=== PATIENT | female | born 1965 | race Caucasian/White ===

== ENCOUNTER 2016-04-09 15:19 | Emergency (ER) | payer OTHER ==
[2006-10-27 23:25] VITALS: BP 121/83
[~2016-04-09] VITALS: Ht 170.2 cm; Wt 95.5 kg
[~2016-04-09 15:19] MED LIST: ALBUTEROL0.09 MG/A1 IH; AMITRIPTYLINE H25 M1 PO; AMOXICILLIN 50500 MG PO; AMOXICILLIN 8751 TAB PO; ATARAX 10MG10 MG/TAB PO; AUGMENTIN 875 M1 TAB PO; AUGMENTIN XR 101 TER PO; B-12 SHOT; B-1250 MCG PO; BACTRIM DS 8001 TAB PO; BENADRYL25 M2 PO; CALCIUM CARBONATE PO; CALTRATE 600600 MG PO; CEFTIN250 M1 PO; CEFTIN250 MG/5 M PO; CEFTIN500 MG PO; CEPHALEXIN500 M1 PO; CHEWABLE-V1 TAB.CHEW PO; CIPRO 100MG TA100 MG PO; CIPRO 500MG TA500 MG PO; CLARITIN; CLARITIN 1010 MG/TAB PO; CLEOCIN HC150 MG/CAP PO; CLEOCIN HCL300 MG PO; CLINDAMYCIN HC300 MG PO; CLINDAMYCIN150 MG PO; CYANOCOBAL1000 MCG/1; DECONAMINE SR 81 CER PO; DIFLUCAN 100MG100 MG PO; DIFLUCAN PO; DIFLUCAN100 MG PO; DIFLUCAN150 MG PO; DIFLUCAN200 MG PO; FLEXERIL10 MG PO; FLOMAX 0.40.4 MG/CAP PO; FLOMAX0.4 MG PO; FLONASE NASAL S16 GM NS; HYDROCODONE/APAP; HYDROCODONE/APAP PO; LEVAQUIN 5500 MG/TA1 PO; LEVAQUIN 5500 MG/TAB PO; LORTAB 10/500 51 TAB PO; LORTAB 5/500 501 TAB; LORTAB 5/500 501 TAB PO; LORTAB 7.5/5001 TAB PO; MACRODANTIN100 PO; MIRAPEX0.5 MG PO; MUCINEX 60600 MG/TA1 PO; MULTI VITAMINS1 TAB PO; MULTIVITAMIN1 TA1 PO; NASONEX SPRAY; NASONEX SPRAY IH; NEXIUM 20MG20 MG PO; NO HOME MEDICATIONS; NORCO 325 MG-101 TAB PO; NORCO 325 MG-51 TAB PO; PEN-VEE K500 MG PO; PENICILLIN V500 MG PO; PENICILLIN250 MG PO; PERCOCET 325 MG1 TA2 PO; PERCOCET 5/321 UDTAB PO; PERCOCET 500 MG1 TAB PO; PHENERGAN 25 TA25 MG; PHENERGAN 25 TA25 MG PO; PHENERGAN W/CO120 ML PO; PHENERGAN25 MG RC; PREDNISONE10 MG PO; PREDNISONE20 MG PO; PREVACID 30MG30 M1 PO; PRILOSEC 20MG20 MG PO; PROAIR HFA0.09 MG/AC IH; PROMETHAZINE12.5 M5 PO; PYRIDIUM 100MG100 MG PO; PYRIDIUM200 M1 PO; RANITIDINE HYD150 MG PO; REGLAN 10M10 MG/2 ML IV; REGLAN 10MG10 MG/TAB PO; SILVADENE 400G400 GM TP; SINGULAIR 110 MG/TAB PO; STADOL NASA25 MG/BOT; STADOL NASA25 MG/BOT NS; STADOL NASA25 MG/BOT PO; TUMS 5001250 MG PO; TUMS500 MG PO; ULTRAM 50MG TAB50 MG PO; ULTRAM50 MG PO; VENTOLIN0.09 MG IH; VICODIN HP 10 PO; VISINE; VITAMIN D1000 IU PO; VITAMIN D50000 I1 PO; ZITHROMAX 250M250 MG PO; ZITHROMAX Z PA250 MG PO; ZITHROMAX Z-PA250 M1 PO; ZITHROMAX500 M2 PO; ZOFRAN 4MG T4 MG/TAB PO; ZOFRAN ODT4 MG PO; ZOFRAN8 MG PO; [UNRECOGNIZED DRUG - OTHER]; vit d
[2016-04-09 15:24] VITALS: BP 152/103; PULSE 98; TEMP 98.1
[2016-04-09 17:18] LABS: BASO % 0.6 % (0.0-2.0); EOS # 0.2 (0.0-0.7); EOS % 2.8 % (0-4.0); GRAN # 3.4 (1.4-6.5); LYMPH # 2.6 (1.2-3.4); MEAN CELL VOLUME 88 fl (80.0-100.0); MEAN CORPUSCULAR HGB CONC 33 g/dl (33.0-37.0); MEAN PLATELET VOLUME 9.5 fl (7.4-10.4); MONO # 0.6 (0.1-0.6); MONO % 8.2 % (1.7-9.3); PLATELET COUNT 262 K/mm3 (130-400); RED BLOOD COUNT 3.81 M/mm3 (4.10-5.30); REDCELL DISTRIBUTION WIDTH-CV 13.3 % (11.5-14.5); WHITE BLOOD COUNT 6.9 K/mm3 (4.8-10.8)
[2016-04-09 17:36] LABS: ADJUSTED CALCIUM 9.5 mg/dL (8.4-10.2); ALANINE AMINOTRANSFERASE 34 U/L (9-52); ALBUMIN 3.4 gm/dL (3.5-5.0); ALKALINE PHOSPHATASE 100 U/L (50-136); ANION GAP 9 mmol/L (7-16); BILIRUBIN,TOTAL 0.5 mg/dL (0.0-1.0); BLOOD UREA NITROGEN 11 mg/dL (7-17); CARBON DIOXIDE 27 mmol/L (22-30); CHLORIDE 105 mmol/L (98-107); CREATININE, serum 0.84 mg/dL (0.52-1.25); GLUCOSE 94 mg/dL (74-106); POTASSIUM 4.3 mmol/L (3.4-5.0); SODIUM 141 mmol/L (137-145)
[2016-04-09 17:37] LABS: HEMATOCRIT 33.6 % (37.0-47.0); MEAN CORPUSCULAR HEMOGLOBIN 29 pg (27.0-31.0)
[2016-04-09 17:45] LABS: C-REACTIVE PROTEIN < 0.5 mg/dL (0.0-0.9)
== END 2016-04-09 18:38 | disposition home or self-care (01) ==
LOC: COL.ER 15:19
PROVIDERS: Emergency Medicine
DX: R47.81 Slurred speech (principal); G25.81 Restless legs syndrome; M79.7 Fibromyalgia; T43.215A Adverse effect of selective serotonin and norepinephrine reuptake inhibitors, initial encounter; T42.6X5A Adverse effect of other antiepileptic and sedative-hypnotic drugs, initial encounter

== ENCOUNTER 2016-05-07 12:42 | Emergency (ER) | payer OTHER ==
[2006-10-27 23:25] VITALS: BP 121/83
[~2016-05-07] VITALS: Ht 170.2 cm; Wt 100.0 kg
[2016-05-07 12:48] VITALS: BP 159/99; TEMP 98.9
[2016-05-07] MEDS ORDERED: NEURONTIN300 MG/CAP PO (12:52)
[2016-05-07 14:15] LABS: BASO # 0.1 (0.0-0.2); BASO % 0.6 % (0.0-2.0); EOS # 0.2 (0.0-0.7); EOS % 2.3 % (0-4.0); GRAN # 4.2 (1.4-6.5); GRAN % 52.1 % (42.2-75.2); HEMATOCRIT 40.6 % (37.0-47.0); HEMOGLOBIN 13.3 g/dl (12.5-16.0); LYMPH # 3.1 (1.2-3.4); LYMPH % 37.6 % (20.0-51.0); MEAN CELL VOLUME 88 fl (80.0-100.0); MEAN CORPUSCULAR HEMOGLOBIN 29 pg (27.0-31.0); MEAN CORPUSCULAR HGB CONC 33 g/dl (33.0-37.0); MEAN PLATELET VOLUME 9.7 fl (7.4-10.4); MONO # 0.6 (0.1-0.6); MONO % 6.7 % (1.7-9.3); PLATELET COUNT 295 K/mm3 (130-400); RED BLOOD COUNT 4.64 M/mm3 (4.10-5.30); REDCELL DISTRIBUTION WIDTH-CV 13.2 % (11.5-14.5); WHITE BLOOD COUNT 8.2 K/mm3 (4.8-10.8)
[2016-05-07 14:16] LABS: PH 6 (5-8); URINE APPEARANCE Clear; URINE BACTERIA None Seen /hpf; URINE BILIRUBIN Negative (NEGATIVE); URINE BLOOD Negative (NEGATIVE); URINE COLOR Yellow; URINE GLUCOSE Negative (NEGATIVE); URINE KETONE Negative (NEGATIVE); URINE RBC 0-2 /hpf; URINE UROBILINOGEN Negative (NEGATIVE); URINE WBC 0-2 /hpf
[2016-05-07 14:34] LABS: ADJUSTED CALCIUM 9.4 mg/dL (8.4-10.2); ALBUMIN 4.6 gm/dL (3.5-5.0); BILIRUBIN,TOTAL 0.8 mg/dL (0.0-1.0); CALCIUM 9.9 mg/dL (8.4-10.2); CREATININE, serum 0.78 mg/dL (0.52-1.25); INFLUENZA B NEGATIVE
[2016-05-07] MEDS ORDERED: PHENERGAN 25 TA25 MG PO (15:01)
[2016-05-07] MEDS ORDERED: TESSALON PERLE200 MG PO (15:01)
[2016-05-07 15:21] VITALS: PULSE 86
== END 2016-05-07 15:45 | disposition home or self-care (01) ==
LOC: COL.ER 12:42
PROVIDERS: Nurse Practitioner
DX: R11.10 Vomiting, unspecified (principal); R19.7 Diarrhea, unspecified; J06.9 Acute upper respiratory infection, unspecified; F17.210 Nicotine dependence, cigarettes, uncomplicated
CPT/HCPCS: J2270; J2405; J2550; J7030

== ENCOUNTER 2016-05-12 19:50 | Emergency (ER) | payer OTHER ==
[2006-10-27 23:25] VITALS: BP 121/83
[~2016-05-12] VITALS: Ht 170.2 cm; Wt 97.7 kg
[~2016-05-12 19:50] MED LIST changes: +NEURONTIN300 MG/CAP PO; +TESSALON PERLE200 MG PO
[2016-05-12 19:53] VITALS: TEMP 99.9
[2016-05-12] MEDS ORDERED: DESYREL 100MG100 MG PO (19:57)
[2016-05-12 20:43] VITALS: BP 136/80; PULSE 85
== END 2016-05-12 20:48 | disposition home or self-care (01) ==
LOC: COL.ER 19:50
DX: S90.32XA Contusion of left foot, initial encounter (principal); W22.8XXA Striking against or struck by other objects, initial encounter; Y92.009 Unspecified place in unspecified non-institutional (private) residence as the place of occurrence of the external cause

== ENCOUNTER 2016-05-15 17:10 | Emergency (ER) | payer OTHER ==
[2006-10-27 23:25] VITALS: BP 121/83
[~2016-05-15] VITALS: Ht 170.2 cm; Wt 100.0 kg
[~2016-05-15 17:10] MED LIST changes: +DESYREL 100MG100 MG PO
[2016-05-15 17:15] VITALS: TEMP 99.5
[2016-05-15 18:14] LABS: PH 5 (5-8); SQUAMOUS EPITHELIAL 0-2 /hpf; URINE APPEARANCE Hazy; URINE BACTERIA Rare /hpf; URINE BILIRUBIN Negative (NEGATIVE); URINE BLOOD 3+ (NEGATIVE); URINE COLOR Yellow; URINE GLUCOSE Negative (NEGATIVE); URINE KETONE Negative (NEGATIVE); URINE RBC >50 /hpf; URINE UROBILINOGEN Negative (NEGATIVE)
[2016-05-15] MEDS ORDERED: ZOFRAN 4MG T4 MG/TAB PO (18:43)
[2016-05-15 19:45] VITALS: BP 116/82; PULSE 98
== END 2016-05-15 19:55 | disposition home or self-care (01) ==
LOC: COL.ER 17:10
PROVIDERS: Nurse Practitioner
DX: M54.89 Other dorsalgia (principal); Z87.442 Personal history of urinary calculi; R11.2 Nausea with vomiting, unspecified; R31.9 Hematuria, unspecified
CPT/HCPCS: J1170; J2405; J2550; J7030

== ENCOUNTER 2016-05-17 20:03 | Emergency (ER) | payer OTHER ==
[2006-10-27 23:25] VITALS: BP 121/83
[~2016-05-17] VITALS: Ht 170.2 cm; Wt 97.7 kg
[2016-05-17 20:11] VITALS: TEMP 98.8
[2016-05-17 20:51] LABS: PH 6 (5-8); URINE APPEARANCE Clear; URINE BACTERIA Rare /hpf; URINE BILIRUBIN Negative (NEGATIVE); URINE BLOOD 3+ (NEGATIVE); URINE COLOR Amber; URINE GLUCOSE 1+ (NEGATIVE); URINE KETONE Trace (NEGATIVE); URINE RBC >50 /hpf; URINE UROBILINOGEN >=4.0 mg/dL (NEGATIVE)
[2016-05-17 20:52] LABS: URINE WBC 0-2 /hpf
[2016-05-17] MEDS ORDERED: PHENERGAN 25 TA25 MG PO (21:40)
[2016-05-17 21:54] VITALS: BP 151/101; PULSE 106
== END 2016-05-17 21:56 | disposition home or self-care (01) ==
LOC: COL.ER 20:03
PROVIDERS: Nurse Practitioner
DX: M54.5 Low back pain (principal); R10.84 Generalized abdominal pain; R31.9 Hematuria, unspecified; Z87.442 Personal history of urinary calculi

== ENCOUNTER 2016-05-29 20:09 | Emergency (ER) | payer OTHER ==
[2006-10-27 23:25] VITALS: BP 121/83
[~2016-05-29] VITALS: Ht 170.2 cm; Wt 100.0 kg
[2016-05-29 20:11] VITALS: BP 133/99; TEMP 98.7
[2016-05-29 20:55] LABS: PH 5 (5-8); URINE APPEARANCE Hazy; URINE BACTERIA None Seen /hpf; URINE BILIRUBIN Negative (NEGATIVE); URINE BLOOD 3+ (NEGATIVE); URINE COLOR Yellow; URINE GLUCOSE Negative (NEGATIVE); URINE KETONE Negative (NEGATIVE); URINE RBC >50 /hpf; URINE WBC 0-2 /hpf
[2016-05-29] MEDS ORDERED: PYRIDIUM200 M1 PO (22:19)
[2016-05-29 22:49] VITALS: PULSE 86
== END 2016-05-29 22:45 | disposition home or self-care (01) ==
LOC: COL.ER 20:09
PROVIDERS: Emergency Medicine
DX: R30.0 Dysuria (principal); R31.9 Hematuria, unspecified; Z87.442 Personal history of urinary calculi
CPT/HCPCS: J2550

== ENCOUNTER 2016-06-07 12:32 | Emergency (ER) | payer OTHER ==
[2006-10-27 23:25] VITALS: BP 121/83
[~2016-06-07] VITALS: Ht 170.2 cm; Wt 100.0 kg
[2016-06-07 12:43] VITALS: BP 151/92; PULSE 102; TEMP 98.5
[2016-06-07] MEDS ORDERED: PREDNISONE20 MG PO (15:00)
[2016-06-07] MEDS ORDERED: PROAIR HFA0.09 MG/AC IH (15:00)
== END 2016-06-07 15:10 | disposition home or self-care (01) ==
LOC: COL.ER 12:32
DX: J98.01 Acute bronchospasm (principal); R51 Headache
CPT/HCPCS: J2550; J7512

== ENCOUNTER 2016-07-05 18:48 | Emergency (ER) | payer SELFPAY ==
[2006-10-27 23:25] VITALS: BP 121/83
[~2016-07-05] VITALS: Ht 170.2 cm; Wt 100.0 kg
[2016-07-05 18:51] VITALS: BP 143/77
[2016-07-05] MEDS ORDERED: DIFLUCAN150 MG PO (19:58)
[2016-07-05] MEDS ORDERED: ZITHROMAX 250M250 MG PO (19:58)
[2016-07-05 20:16] VITALS: PULSE 68; TEMP 98.3
== END 2016-07-05 20:17 | disposition home or self-care (01) ==
LOC: COL.ER 18:48
DX: R51 Headache (principal); J32.9 Chronic sinusitis, unspecified

== ENCOUNTER 2016-07-10 17:02 | Emergency (ER) | payer SELFPAY ==
[2006-10-27 23:25] VITALS: BP 121/83
[~2016-07-10] VITALS: Ht 170.2 cm; Wt 100.0 kg
[2016-07-10 17:07] VITALS: BP 125/44; TEMP 99.6
[2016-07-10 17:27] LABS: PH 5 (5-8); SQUAMOUS EPITHELIAL 0-2 /hpf; URINE APPEARANCE Clear; URINE BACTERIA None Seen /hpf; URINE BILIRUBIN Negative (NEGATIVE); URINE BLOOD Negative (NEGATIVE); URINE COLOR Yellow; URINE GLUCOSE Negative (NEGATIVE); URINE KETONE Negative (NEGATIVE); URINE RBC 0-2 /hpf; URINE UROBILINOGEN Negative (NEGATIVE); URINE WBC 0-2 /hpf
[2016-07-10] MEDS ORDERED: PHENERGAN 25 TA25 MG PO (18:30)
[2016-07-10 18:37] VITALS: PULSE 97
== END 2016-07-10 18:38 | disposition home or self-care (01) ==
LOC: COL.ER 17:02
PROVIDERS: Emergency Medicine
DX: R10.32 Left lower quadrant pain (principal); Z87.442 Personal history of urinary calculi
CPT/HCPCS: J2550

== ENCOUNTER 2016-07-16 14:01 | Emergency (ER) | payer SELFPAY ==
[2006-10-27 23:25] VITALS: BP 121/83
[~2016-07-16] VITALS: Ht 170.2 cm; Wt 100.0 kg
[2016-07-16 14:04] VITALS: BP 141/86; PULSE 91; TEMP 99.5
[2016-07-16] MEDS ORDERED: NORCO 325 MG-51 TAB PO (15:14)
[2016-07-16] MEDS ORDERED: AMOXICILLIN 50500 MG PO (15:14)
== END 2016-07-16 15:19 | disposition home or self-care (01) ==
LOC: COL.ER 14:01
DX: K08.89 Other specified disorders of teeth and supporting structures (principal); K03.81 Cracked tooth

== ENCOUNTER 2016-07-18 22:28 | Emergency (ER) | payer SELFPAY ==
[2006-10-27 23:25] VITALS: BP 121/83
[~2016-07-18] VITALS: Ht 170.2 cm; Wt 102.3 kg
[2016-07-18 22:36] VITALS: TEMP 98.3
[2016-07-18 23:28] LABS: BASO % 0.6 % (0.0-2.0); EOS # 0.1 (0.0-0.7); GRAN # 2.7 (1.4-6.5); GRAN % 38.1 % (42.2-75.2); LYMPH # 3.5 (1.2-3.4); LYMPH % 48.6 % (20.0-51.0); MEAN CELL VOLUME 83 fl (80.0-100.0); MEAN CORPUSCULAR HGB CONC 33 g/dl (33.0-37.0); MEAN PLATELET VOLUME 9.8 fl (7.4-10.4); MONO # 0.7 (0.1-0.6); MONO % 10.3 % (1.7-9.3); PLATELET COUNT 287 K/mm3 (130-400); RED BLOOD COUNT 4.18 M/mm3 (4.10-5.30); REDCELL DISTRIBUTION WIDTH-CV 13.2 % (11.5-14.5); WHITE BLOOD COUNT 7.1 K/mm3 (4.8-10.8)
[2016-07-18 23:33] LABS: PH 5 (5-8); URINE APPEARANCE Clear; URINE BACTERIA None Seen /hpf; URINE BILIRUBIN Negative (NEGATIVE); URINE BLOOD Negative (NEGATIVE); URINE COLOR Yellow; URINE GLUCOSE Negative (NEGATIVE); URINE KETONE Negative (NEGATIVE); URINE RBC 0-2 /hpf; URINE UROBILINOGEN Negative (NEGATIVE); URINE WBC 0-2 /hpf
[2016-07-18 23:33] LABS: HEMATOCRIT 34.8 % (37.0-47.0); HEMOGLOBIN 11.5 g/dl (12.5-16.0); MEAN CORPUSCULAR HEMOGLOBIN 28 pg (27.0-31.0)
[2016-07-18 23:52] LABS: ADJUSTED CALCIUM 9.1 mg/dL (8.4-10.2); ALBUMIN 4.4 gm/dL (3.5-5.0); BILIRUBIN,TOTAL 0.7 mg/dL (0.0-1.0); CALCIUM 9.4 mg/dL (8.4-10.2); CREATININE, serum 0.89 mg/dL (0.52-1.25); POTASSIUM 3.5 mmol/L (3.4-5.0); TOTAL PROTEIN 7.1 gm/dL (6.4-8.2)
[2016-07-19 00:28] VITALS: BP 151/95; PULSE 97
== END 2016-07-19 00:29 | disposition home or self-care (01) ==
LOC: COL.ER 22:28
PROVIDERS: Emergency Medicine
DX: N20.0 Calculus of kidney (principal); R10.31 Right lower quadrant pain; Z87.442 Personal history of urinary calculi; G89.29 Other chronic pain
CPT/HCPCS: J1170; J2405; J7030

== ENCOUNTER 2016-07-29 19:59 | Emergency (ER) | payer SELFPAY ==
[2006-10-27 23:25] VITALS: BP 121/83
[~2016-07-29] VITALS: Ht 170.2 cm; Wt 100.5 kg
[2016-07-29 20:04] VITALS: TEMP 98.9
[2016-07-29] MEDS ORDERED: AMOXICILLIN 50500 MG PO (21:08)
[2016-07-29 21:51] VITALS: BP 148/84; PULSE 90
== END 2016-07-29 21:55 | disposition home or self-care (01) ==
LOC: COL.ER 19:59
DX: R51 Headache (principal); K08.89 Other specified disorders of teeth and supporting structures
CPT/HCPCS: J1200; J2550; J7030

== ENCOUNTER 2016-08-02 15:14 | Emergency (ER) | payer SELFPAY ==
[2006-10-27 23:25] VITALS: BP 121/83
[~2016-08-02] VITALS: Ht 170.2 cm; Wt 100.0 kg
[2016-08-02 15:18] VITALS: BP 168/83; TEMP 99
[2016-08-02 16:15] LABS: PH 5 (5-8); URINE APPEARANCE Hazy; URINE BACTERIA Rare /hpf; URINE BILIRUBIN Negative (NEGATIVE); URINE BLOOD 3+ (NEGATIVE); URINE COLOR Yellow; URINE GLUCOSE Negative (NEGATIVE); URINE KETONE Negative (NEGATIVE); URINE RBC >50 /hpf; URINE UROBILINOGEN Negative (NEGATIVE)
[2016-08-02] MEDS ORDERED: PYRIDIUM 100MG100 MG PO (17:09)
[2016-08-02] MEDS ORDERED: PHENERGAN 25 TA25 MG PO (17:09)
[2016-08-02 17:15] VITALS: PULSE 95
== END 2016-08-02 17:15 | disposition home or self-care (01) ==
LOC: COL.ER 15:14
PROVIDERS: Emergency Medicine
DX: R10.31 Right lower quadrant pain (principal); G89.29 Other chronic pain; R31.9 Hematuria, unspecified; R11.2 Nausea with vomiting, unspecified; R19.7 Diarrhea, unspecified; Z87.442 Personal history of urinary calculi
CPT/HCPCS: J2550

== ENCOUNTER 2016-08-22 19:14 | Emergency (ER) | payer SELFPAY ==
[2006-10-27 23:25] VITALS: BP 121/83
[~2016-08-22] VITALS: Ht 170.2 cm; Wt 100.9 kg
[2016-08-22 19:18] VITALS: BP 136/104; TEMP 99.5
[2016-08-22 19:53] LABS: PH 5 (5-8); URINE APPEARANCE Clear; URINE BILIRUBIN Negative (NEGATIVE); URINE BLOOD 3+ (NEGATIVE); URINE COLOR Yellow; URINE GLUCOSE Negative (NEGATIVE); URINE KETONE Negative (NEGATIVE); URINE UROBILINOGEN Negative (NEGATIVE)
[2016-08-22 20:01] LABS: SQUAMOUS EPITHELIAL 0-2 /hpf; URINE BACTERIA Moderate /hpf
[2016-08-22] MEDS ORDERED: PREDNISONE20 MG PO (20:28)
[2016-08-22 21:04] VITALS: PULSE 94
== END 2016-08-22 21:05 | disposition home or self-care (01) ==
LOC: COL.ER 19:14
PROVIDERS: Physician Assistant
DX: N20.1 Calculus of ureter (principal); L23.7 Allergic contact dermatitis due to plants, except food
CPT/HCPCS: J2550; J7512

== ENCOUNTER 2016-08-30 18:56 | Emergency (ER) | payer SELFPAY ==
[2006-10-27 23:25] VITALS: BP 121/83
[~2016-08-30] VITALS: Ht 170.2 cm; Wt 100.0 kg
[2016-08-30 20:19] LABS: BASO % 0.4 % (0.0-2.0); EOS # 0.1 (0.0-0.7); EOS % 1.1 % (0-4.0); GRAN # 4.7 (1.4-6.5); GRAN % 45.3 % (42.2-75.2); HEMATOCRIT 39.8 % (37.0-47.0); HEMOGLOBIN 12.8 g/dl (12.5-16.0); LYMPH # 4.7 (1.2-3.4); LYMPH % 44.7 % (20.0-51.0); MEAN CELL VOLUME 83 fl (80.0-100.0); MEAN CORPUSCULAR HEMOGLOBIN 27 pg (27.0-31.0); MEAN CORPUSCULAR HGB CONC 32 g/dl (33.0-37.0); MEAN PLATELET VOLUME 9.3 fl (7.4-10.4); MONO # 0.8 (0.1-0.6); PH 5 (5-8); PLATELET COUNT 346 K/mm3 (130-400); RED BLOOD COUNT 4.77 M/mm3 (4.10-5.30); REDCELL DISTRIBUTION WIDTH-CV 13.9 % (11.5-14.5); URINE APPEARANCE Hazy; URINE BACTERIA None Seen /hpf; URINE BILIRUBIN Negative (NEGATIVE); URINE BLOOD 3+ (NEGATIVE); URINE COLOR Yellow; URINE GLUCOSE Negative (NEGATIVE); URINE KETONE Negative (NEGATIVE); URINE RBC >50 /hpf; URINE UROBILINOGEN Negative (NEGATIVE); WHITE BLOOD COUNT 10.4 K/mm3 (4.8-10.8)
[2016-08-30 20:20] LABS: ADJUSTED CALCIUM 8.9 mg/dL (8.4-10.2); ALBUMIN 4.6 gm/dL (3.5-5.0); BILIRUBIN,TOTAL 0.6 mg/dL (0.0-1.0); CALCIUM 9.4 mg/dL (8.4-10.2); CREATININE, serum 0.83 mg/dL (0.52-1.25); POTASSIUM 3.7 mmol/L (3.4-5.0); TOTAL PROTEIN 7.6 gm/dL (6.4-8.2)
[2016-08-30 20:22] VITALS: BP 123/72; TEMP 98.7
[2016-08-30] MEDS ORDERED: MACROBID 1100 MG/CAP PO (20:30)
[2016-08-30 21:18] VITALS: PULSE 85
== END 2016-08-30 21:18 | disposition home or self-care (01) ==
LOC: COL.ER 18:56
PROVIDERS: Emergency Medicine
DX: R10.2 Pelvic and perineal pain (principal); R31.9 Hematuria, unspecified; R30.0 Dysuria; J45.909 Unspecified asthma, uncomplicated; Z90.49 Acquired absence of other specified parts of digestive tract
CPT/HCPCS: J2550; J7030

== ENCOUNTER 2016-09-01 07:47 | Emergency (ER) | payer SELFPAY ==
[2006-10-27 23:25] VITALS: BP 121/83
[~2016-09-01] VITALS: Ht 170.2 cm; Wt 100.0 kg
[~2016-09-01 07:47] MED LIST changes: +MACROBID 1100 MG/CAP PO
[2016-09-01 07:54] VITALS: BP 129/86; PULSE 108; TEMP 98.9
[2016-09-01 08:24] LABS: PH 5 (5-8); URINE APPEARANCE Clear; URINE COLOR Straw
[2016-09-01 08:25] LABS: URINE BILIRUBIN Negative (NEGATIVE); URINE BLOOD 3+ (NEGATIVE); URINE GLUCOSE Negative (NEGATIVE); URINE KETONE Negative (NEGATIVE); URINE UROBILINOGEN Negative (NEGATIVE)
[2016-09-01 08:30] LABS: SQUAMOUS EPITHELIAL 0-2 /hpf; URINE BACTERIA Rare /hpf; URINE RBC >50 /hpf
[2016-09-01] MEDS ORDERED: ZOFRAN ODT4 MG PO (09:27)
[2016-09-01] MEDS ORDERED: NORCO 325 MG-51 TAB PO (09:27)
[2016-09-01] MEDS ORDERED: PYRIDIUM 100MG100 MG PO (09:27)
== END 2016-09-01 10:10 | disposition home or self-care (01) ==
LOC: COL.ER 07:47
PROVIDERS: Nurse Practitioner
DX: R10.9 Unspecified abdominal pain (principal); J45.909 Unspecified asthma, uncomplicated; G43.909 Migraine, unspecified, not intractable, without status migrainosus; M79.7 Fibromyalgia; J32.9 Chronic sinusitis, unspecified; Z87.442 Personal history of urinary calculi; Z90.49 Acquired absence of other specified parts of digestive tract; Z90.89 Acquired absence of other organs; Z90.710 Acquired absence of both cervix and uterus; Z98.890 Other specified postprocedural states
CPT/HCPCS: J2550

== ENCOUNTER → 2016-09-10 | Outpatient (CLI) | payer SELFPAY ==
[~2016-09-10] MED LIST changes: +DESYREL 50MG50 MG PO; +MIRAPEX0.25 MG PO
== END ==
LOC: COL.RAD 08:05
DX: N20.0 Calculus of kidney (principal)

== ENCOUNTER 2016-09-27 16:12 | Emergency (ER) | payer SELFPAY ==
[2006-10-27 23:25] VITALS: BP 121/83
[~2016-09-27] VITALS: Ht 170.2 cm; Wt 99.1 kg
[~2016-09-27 16:12] MED LIST changes: -DESYREL 50MG50 MG PO; -MIRAPEX0.25 MG PO
[2016-09-27 16:14] VITALS: BP 144/83
[2016-09-27 16:43] LABS: PH 5 (5-8); URINE APPEARANCE Hazy; URINE BACTERIA Rare /hpf; URINE BILIRUBIN Negative (NEGATIVE); URINE BLOOD 3+ (NEGATIVE); URINE COLOR Red; URINE GLUCOSE Negative (NEGATIVE); URINE KETONE Negative (NEGATIVE); URINE RBC >50 /hpf; URINE UROBILINOGEN >=4.0 mg/dL (NEGATIVE); URINE WBC None Seen /hpf
[2016-09-27 16:48] LABS: ADJUSTED CALCIUM 9.2 mg/dL (8.4-10.2); ALBUMIN 4.6 gm/dL (3.5-5.0); BILIRUBIN,TOTAL 0.9 mg/dL (0.0-1.0); CALCIUM 9.7 mg/dL (8.4-10.2); CREATININE, serum 0.94 mg/dL (0.52-1.25); POTASSIUM 3.7 mmol/L (3.4-5.0); TOTAL PROTEIN 7.7 gm/dL (6.4-8.2)
[2016-09-27] MEDS ORDERED: CIPRO 500MG TA500 MG PO (17:17)
[2016-09-27 17:22] LABS: BASO # 0.1 (0.0-0.2); BASO % 0.5 % (0.0-2.0); EOS # 0.1 (0.0-0.7); EOS % 1.2 % (0-4.0); GRAN # 4.3 (1.4-6.5); GRAN % 42.6 % (42.2-75.2); HEMATOCRIT 38.8 % (37.0-47.0); HEMOGLOBIN 12.4 g/dl (12.5-16.0); LYMPH # 4.9 (1.2-3.4); LYMPH % 48.1 % (20.0-51.0); MEAN CELL VOLUME 84 fl (80.0-100.0); MEAN CORPUSCULAR HEMOGLOBIN 27 pg (27.0-31.0); MEAN CORPUSCULAR HGB CONC 32 g/dl (33.0-37.0); MEAN PLATELET VOLUME 10.3 fl (7.4-10.4); MONO # 0.7 (0.1-0.6); MONO % 7.2 % (1.7-9.3); PLATELET COUNT 332 K/mm3 (130-400); RED BLOOD COUNT 4.64 M/mm3 (4.10-5.30); REDCELL DISTRIBUTION WIDTH-CV 14.9 % (11.5-14.5); WHITE BLOOD COUNT 10.2 K/mm3 (4.8-10.8)
[2016-09-27 17:52] VITALS: TEMP 99
[2016-09-27] MEDS ORDERED: PERCOCET 325 MG1 TA2 PO (18:42)
[2016-09-27] MEDS ORDERED: ULTRAM 50MG TAB50 MG PO (18:42)
[2016-09-27 18:44] VITALS: PULSE 85
== END 2016-09-27 18:46 | disposition home or self-care (01) ==
LOC: COL.ER 16:12
PROVIDERS: Emergency Medicine
DX: N20.1 Calculus of ureter (principal); Z87.442 Personal history of urinary calculi; R33.9 Retention of urine, unspecified; R11.2 Nausea with vomiting, unspecified; R63.0 Anorexia
CPT/HCPCS: J0696; J1170; J2405; J7030

== ENCOUNTER 2016-10-22 22:25 | Emergency (ER) | payer OTHER ==
[2006-10-27 23:25] VITALS: BP 121/83
[~2016-10-22] VITALS: Ht 170.2 cm; Wt 100.0 kg
[2016-10-22 22:29] VITALS: BP 173/100; TEMP 99
[2016-10-22 22:52] LABS: PH 5 (5-8); SQUAMOUS EPITHELIAL 0-2 /hpf; URINE APPEARANCE Hazy; URINE BACTERIA None Seen /hpf; URINE BILIRUBIN Negative (NEGATIVE); URINE BLOOD 3+ (NEGATIVE); URINE COLOR Amber; URINE GLUCOSE Negative (NEGATIVE); URINE KETONE Negative (NEGATIVE); URINE RBC >50 /hpf
[2016-10-22 23:33] LABS: BASO % 0.4 % (0.0-2.0); EOS # 0.1 (0.0-0.7); EOS % 1.6 % (0-4.0); GRAN # 2.9 (1.4-6.5); LYMPH # 3.4 (1.2-3.4); LYMPH % 48.6 % (20.0-51.0); MEAN CELL VOLUME 83 fl (80.0-100.0); MEAN CORPUSCULAR HGB CONC 32 g/dl (33.0-37.0); MEAN PLATELET VOLUME 10.1 fl (7.4-10.4); MONO # 0.6 (0.1-0.6); MONO % 8.1 % (1.7-9.3); PLATELET COUNT 253 K/mm3 (130-400); RED BLOOD COUNT 4.31 M/mm3 (4.10-5.30); REDCELL DISTRIBUTION WIDTH-CV 14.2 % (11.5-14.5); WHITE BLOOD COUNT 6.9 K/mm3 (4.8-10.8)
[2016-10-22 23:34] LABS: HEMATOCRIT 35.8 % (37.0-47.0); HEMOGLOBIN 11.4 g/dl (12.5-16.0); MEAN CORPUSCULAR HEMOGLOBIN 26 pg (27.0-31.0)
[2016-10-22 23:42] LABS: ALBUMIN 4.2 gm/dL (3.5-5.0); BILIRUBIN,TOTAL 0.4 mg/dL (0.0-1.0); CALCIUM 9.2 mg/dL (8.4-10.2); CREATININE, serum 0.91 mg/dL (0.52-1.25); TOTAL PROTEIN 6.8 gm/dL (6.4-8.2)
[2016-10-22 23:52] VITALS: PULSE 82
== END 2016-10-22 23:54 | disposition home or self-care (01) ==
LOC: COL.ER 22:25
PROVIDERS: Nurse Practitioner
DX: G89.29 Other chronic pain (principal); R10.9 Unspecified abdominal pain; Z87.442 Personal history of urinary calculi; Z90.710 Acquired absence of both cervix and uterus; Z98.84 Bariatric surgery status

== ENCOUNTER 2016-11-04 15:58 | Emergency (ER) | payer OTHER ==
[2006-10-27 23:25] VITALS: BP 121/83
[~2016-11-04] VITALS: Ht 170.2 cm; Wt 100.0 kg
[2016-11-04 16:00] VITALS: TEMP 99.5
[2016-11-04] MEDS ORDERED: PEN-VEE K500 MG PO (16:41)
[2016-11-04 16:47] VITALS: BP 155/70; PULSE 96
== END 2016-11-04 16:48 | disposition home or self-care (01) ==
LOC: COL.ER 15:58
DX: G43.909 Migraine, unspecified, not intractable, without status migrainosus (principal); K08.89 Other specified disorders of teeth and supporting structures; M79.7 Fibromyalgia
CPT/HCPCS: J1200; J2550

== ENCOUNTER 2016-11-09 17:53 | Emergency (ER) | payer OTHER ==
[2006-10-27 23:25] VITALS: BP 121/83
[~2016-11-09] VITALS: Ht 170.2 cm; Wt 100.0 kg
[2016-11-09 17:57] VITALS: TEMP 99.3
[2016-11-09 18:29] LABS: PH 5 (5-8); URINE APPEARANCE Hazy; URINE BACTERIA None Seen /hpf; URINE BILIRUBIN Negative (NEGATIVE); URINE BLOOD 3+ (NEGATIVE); URINE COLOR Yellow; URINE GLUCOSE Negative (NEGATIVE); URINE KETONE Negative (NEGATIVE); URINE RBC >50 /hpf; URINE UROBILINOGEN Negative (NEGATIVE); URINE WBC None Seen /hpf
[2016-11-09 19:25] LABS: BASO % 0.3 % (0.0-2.0); EOS # 0.1 (0.0-0.7); EOS % 0.9 % (0-4.0); GRAN # 4.9 (1.4-6.5); GRAN % 54.5 % (42.2-75.2); LYMPH # 3.3 (1.2-3.4); LYMPH % 36.9 % (20.0-51.0); MEAN CELL VOLUME 84 fl (80.0-100.0); MEAN CORPUSCULAR HGB CONC 32 g/dl (33.0-37.0); MONO # 0.6 (0.1-0.6); PLATELET COUNT 276 K/mm3 (130-400); RED BLOOD COUNT 4.37 M/mm3 (4.10-5.30); REDCELL DISTRIBUTION WIDTH-CV 14.7 % (11.5-14.5)
[2016-11-09 19:27] LABS: HEMATOCRIT 36.6 % (37.0-47.0); HEMOGLOBIN 11.7 g/dl (12.5-16.0); MEAN CORPUSCULAR HEMOGLOBIN 27 pg (27.0-31.0)
[2016-11-09 19:32] LABS: ADJUSTED CALCIUM 9.3 mg/dL (8.4-10.2); ALBUMIN 4.2 gm/dL (3.5-5.0); BILIRUBIN,TOTAL 0.7 mg/dL (0.0-1.0); CALCIUM 9.5 mg/dL (8.4-10.2); CREATININE, serum 0.74 mg/dL (0.52-1.25); POTASSIUM 3.7 mmol/L (3.4-5.0); TOTAL PROTEIN 7.1 gm/dL (6.4-8.2)
[2016-11-09 21:00] VITALS: BP 109/71; PULSE 73
== END 2016-11-09 21:03 | disposition home or self-care (01) ==
LOC: COL.ER 17:53
PROVIDERS: Emergency Medicine; Nurse Practitioner
DX: R10.31 Right lower quadrant pain (principal); R50.9 Fever, unspecified; R10.2 Pelvic and perineal pain; R19.7 Diarrhea, unspecified; R63.0 Anorexia; R31.9 Hematuria, unspecified; Z87.442 Personal history of urinary calculi; R29.898 Other symptoms and signs involving the musculoskeletal system; G43.909 Migraine, unspecified, not intractable, without status migrainosus; J45.909 Unspecified asthma, uncomplicated; G89.29 Other chronic pain
CPT/HCPCS: J1170; J2405; J7030

== ENCOUNTER 2016-11-13 18:57 | Emergency (ER) | payer OTHER ==
[2006-10-27 23:25] VITALS: BP 121/83
[~2016-11-13] VITALS: Ht 170.2 cm; Wt 99.1 kg
[2016-11-13 19:04] VITALS: TEMP 97.3
[2016-11-13 20:12] LABS: PH 5 (5-8); URINE APPEARANCE Hazy; URINE BACTERIA Rare /hpf; URINE BILIRUBIN Negative (NEGATIVE); URINE BLOOD 3+ (NEGATIVE); URINE COLOR Yellow; URINE GLUCOSE Negative (NEGATIVE); URINE KETONE Negative (NEGATIVE); URINE RBC >50 /hpf; URINE UROBILINOGEN Negative (NEGATIVE); URINE WBC None Seen /hpf
[2016-11-13 20:47] VITALS: BP 134/77; PULSE 91
[2016-11-13] MEDS ORDERED: DESYREL 50MG50 MG PO (20:49)
[2016-11-13] MEDS ORDERED: MIRAPEX0.25 MG PO (20:49)
== END 2016-11-13 20:52 | disposition home or self-care (01) ==
LOC: COL.ER 18:57
PROVIDERS: Physician Assistant
DX: R29.898 Other symptoms and signs involving the musculoskeletal system (principal); Z87.442 Personal history of urinary calculi; R63.0 Anorexia; R11.0 Nausea; M79.7 Fibromyalgia; R31.9 Hematuria, unspecified; J45.909 Unspecified asthma, uncomplicated
CPT/HCPCS: J1170; J2550

== ENCOUNTER 2016-11-16 15:15 | Emergency (ER) | payer OTHER ==
[2006-10-27 23:25] VITALS: BP 121/83
[~2016-11-16] VITALS: Ht 170.2 cm; Wt 100.0 kg
[~2016-11-16 15:15] MED LIST changes: +DESYREL 50MG50 MG PO; +MIRAPEX0.25 MG PO
[2016-11-16 15:33] VITALS: BP 143/88; PULSE 86; TEMP 98.7
[2016-11-16] MEDS ORDERED: FLOMAX 0.40.4 MG/CAP PO (15:37)
[2016-11-16 17:55] LABS: PH 5 (5-8); URINE APPEARANCE Hazy; URINE BACTERIA Rare /hpf; URINE BILIRUBIN Negative (NEGATIVE); URINE BLOOD 3+ (NEGATIVE); URINE COLOR Yellow; URINE GLUCOSE Negative (NEGATIVE); URINE KETONE Negative (NEGATIVE); URINE RBC >50 /hpf; URINE UROBILINOGEN Negative (NEGATIVE); URINE WBC None Seen /hpf
== END 2016-11-16 19:25 | disposition home or self-care (01) ==
LOC: COL.ER 15:15
PROVIDERS: Physician Assistant
DX: R10.31 Right lower quadrant pain (principal); R31.9 Hematuria, unspecified; R11.2 Nausea with vomiting, unspecified; R30.0 Dysuria; N20.0 Calculus of kidney; Z87.442 Personal history of urinary calculi; M54.89 Other dorsalgia
CPT/HCPCS: J2550; J3010

== ENCOUNTER 2016-11-30 08:45 | Emergency (ER) | payer OTHER ==
[2006-10-27 23:25] VITALS: BP 121/83
[~2016-11-30] VITALS: Ht 170.2 cm; Wt 96.4 kg
[2016-11-30 08:51] VITALS: TEMP 97.9
[2016-11-30] MEDS ORDERED: NORCO 325 MG-101 TAB PO (08:56)
[2016-11-30 09:28] LABS: BASO % 0.5 % (0.0-2.0); EOS # 0.1 (0.0-0.7); GRAN # 2.4 (1.4-6.5); LYMPH # 3.1 (1.2-3.4); LYMPH % 50.2 % (20.0-51.0); MEAN CELL VOLUME 82 fl (80.0-100.0); MEAN CORPUSCULAR HGB CONC 32 g/dl (33.0-37.0); MEAN PLATELET VOLUME 9.9 fl (7.4-10.4); MONO # 0.5 (0.1-0.6); MONO % 8.1 % (1.7-9.3); PLATELET COUNT 338 K/mm3 (130-400); RED BLOOD COUNT 4.49 M/mm3 (4.10-5.30); REDCELL DISTRIBUTION WIDTH-CV 14.6 % (11.5-14.5); WHITE BLOOD COUNT 6.1 K/mm3 (4.8-10.8)
[2016-11-30 09:30] LABS: HEMATOCRIT 36.9 % (37.0-47.0); HEMOGLOBIN 11.8 g/dl (12.5-16.0); MEAN CORPUSCULAR HEMOGLOBIN 26 pg (27.0-31.0)
[2016-11-30 09:38] LABS: ADJUSTED CALCIUM 9.1 mg/dL (8.4-10.2); ALANINE AMINOTRANSFERASE 26 U/L (9-52); ALBUMIN 4.4 gm/dL (3.5-5.0); ALKALINE PHOSPHATASE 95 U/L (50-136); ANION GAP 11 mmol/L (7-16); BILIRUBIN,TOTAL 0.9 mg/dL (0.0-1.0); BLOOD UREA NITROGEN 15 mg/dL (7-17); CALCIUM 9.4 mg/dL (8.4-10.2); CARBON DIOXIDE 23 mmol/L (22-30); CHLORIDE 107 mmol/L (98-107); GLUCOSE 89 mg/dL (74-106); LIPASE 71 U/L (23-300); POTASSIUM 3.7 mmol/L (3.4-5.0); SODIUM 141 mmol/L (137-145); TOTAL PROTEIN 7.4 gm/dL (6.4-8.2)
[2016-11-30 09:40] LABS: C-REACTIVE PROTEIN < 0.5 mg/dL (0.0-0.9)
[2016-11-30 09:43] LABS: PH 5 (5-8); SQUAMOUS EPITHELIAL None Seen /hpf; URINE APPEARANCE Cloudy; URINE BACTERIA None Seen /hpf; URINE BILIRUBIN Negative (NEGATIVE); URINE BLOOD 3+ (NEGATIVE); URINE COLOR Amber; URINE GLUCOSE Negative (NEGATIVE); URINE KETONE Negative (NEGATIVE); URINE RBC >50 /hpf; URINE UROBILINOGEN Negative (NEGATIVE); URINE WBC None Seen /hpf
[2016-11-30] MEDS ORDERED: NORCO 325 MG-51 TAB PO (10:06)
[2016-11-30] MEDS ORDERED: ZOFRAN 4MG T4 MG/TAB PO (10:06)
[2016-11-30 10:49] VITALS: BP 147/103; PULSE 82
== END 2016-11-30 10:49 | disposition home or self-care (01) ==
LOC: COL.ER 08:45
PROVIDERS: Emergency Medicine
DX: N23 Unspecified renal colic (principal); G89.29 Other chronic pain; F17.200 Nicotine dependence, unspecified, uncomplicated; Z90.49 Acquired absence of other specified parts of digestive tract; Z90.89 Acquired absence of other organs; Z90.710 Acquired absence of both cervix and uterus; Z98.84 Bariatric surgery status; Z87.442 Personal history of urinary calculi
CPT/HCPCS: J1170; J2405; J7030

== ENCOUNTER 2016-11-30 16:27 | Inpatient (IN) | payer OTHER ==
[~2016-11-30] VITALS: Ht 170.2 cm; Wt 99.1 kg
[2016-11-30 20:00] VITALS: BP 146/81; PULSE 80
[2016-11-30 21:03] VITALS: BP 144/88; PULSE 88; TEMP 99.4
[2016-12-01 00:20] VITALS: BP 129/77; PULSE 75
[2016-12-01 00:37] VITALS: BP 128/77; PULSE 75
[2016-12-01 04:00] VITALS: BP 123/75; PULSE 75; TEMP 97.8
[2016-12-01 09:15] VITALS: BP 108/63; PULSE 71; TEMP 98.1
[2016-12-01 13:53] VITALS: BP 150/92; PULSE 74; TEMP 98.2
[2016-12-01 17:53] VITALS: BP 146/93; PULSE 66; TEMP 98.6
== END 2016-12-01 19:55 | disposition home or self-care (01) | DRG 694 ==
LOC: COL.ER 16:27 → OB 20:04 → SURG 20:04
DX: N20.2 Calculus of kidney with calculus of ureter (principal); Z87.442 Personal history of urinary calculi; Z98.84 Bariatric surgery status
CPT/HCPCS: J2270; J2405; J3480; J7030

== ENCOUNTER 2017-01-03 21:51 | Emergency (ER) | payer OTHER ==
[2006-10-27 23:25] VITALS: BP 121/83
[~2017-01-03] VITALS: Ht 170.2 cm; Wt 98.6 kg
[2017-01-03 21:55] VITALS: TEMP 98.7
[2017-01-03 22:51] LABS: PH 5 (5-8); URINE APPEARANCE Clear; URINE BACTERIA Rare /hpf; URINE BILIRUBIN Negative (NEGATIVE); URINE BLOOD 2+ (NEGATIVE); URINE COLOR Yellow; URINE GLUCOSE Negative (NEGATIVE); URINE KETONE Negative (NEGATIVE); URINE RBC 20-50 /hpf; URINE UROBILINOGEN Negative (NEGATIVE)
[2017-01-03 23:02] VITALS: BP 133/71; PULSE 68
[2017-01-03 23:16] LABS: BASO % 0.6 % (0.0-2.0); EOS # 0.1 (0.0-0.7); EOS % 1.7 % (0-4.0); GRAN # 3.1 (1.4-6.5); GRAN % 44.1 % (42.2-75.2); LYMPH # 3.3 (1.2-3.4); LYMPH % 46.2 % (20.0-51.0); MEAN CELL VOLUME 83 fl (80.0-100.0); MEAN CORPUSCULAR HGB CONC 32 g/dl (33.0-37.0); MONO # 0.5 (0.1-0.6); MONO % 7.1 % (1.7-9.3); PLATELET COUNT 269 K/mm3 (130-400); RED BLOOD COUNT 4.01 M/mm3 (4.10-5.30); REDCELL DISTRIBUTION WIDTH-CV 14.6 % (11.5-14.5); WHITE BLOOD COUNT 7.1 K/mm3 (4.8-10.8)
[2017-01-03 23:18] LABS: HEMATOCRIT 33.3 % (37.0-47.0); HEMOGLOBIN 10.7 g/dl (12.5-16.0); MEAN CORPUSCULAR HEMOGLOBIN 27 pg (27.0-31.0)
[2017-01-03] MEDS ORDERED: FLOMAX 0.40.4 MG/CAP PO (23:24)
[2017-01-03] MEDS ORDERED: NORCO 325 MG-51 TAB PO (23:24)
[2017-01-03] MEDS ORDERED: ZOFRAN ODT4 MG PO (23:24)
[2017-01-03 23:31] LABS: ADJUSTED CALCIUM 9.2 mg/dL (8.4-10.2); ALBUMIN 3.6 gm/dL (3.5-5.0); BILIRUBIN,TOTAL 0.3 mg/dL (0.0-1.0); CALCIUM 8.9 mg/dL (8.4-10.2); CREATININE, serum 0.67 mg/dL (0.52-1.25); POTASSIUM 3.5 mmol/L (3.4-5.0); TOTAL PROTEIN 6.3 gm/dL (6.4-8.2)
== END 2017-01-03 23:30 | disposition home or self-care (01) ==
LOC: COL.ER 21:51
PROVIDERS: Emergency Medicine
DX: N23 Unspecified renal colic (principal); Z87.442 Personal history of urinary calculi; Z90.49 Acquired absence of other specified parts of digestive tract; Z90.710 Acquired absence of both cervix and uterus
CPT/HCPCS: J2765; J3010; J7030

== ENCOUNTER 2017-03-24 20:12 | Emergency (ER) | payer SELFPAY ==
[2006-10-27 23:25] VITALS: BP 121/83
[~2017-03-24] VITALS: Ht 170.2 cm; Wt 98.2 kg
[2017-03-24 20:15] VITALS: BP 169/89; TEMP 102.9
[2017-03-24] MEDS ORDERED: BENADRYL25 M2 PO (20:19)
[2017-03-24 20:47] LABS: INFLUENZA A NEGATIVE; INFLUENZA B NEGATIVE
[2017-03-24] MEDS ORDERED: TYLENOL/CODEINE1 ML PO (21:00)
[2017-03-24] MEDS ORDERED: DOXYCYCLINE 10100 MG PO ×2 (21:00)
[2017-03-24] MEDS ORDERED: ZOFRAN ODT4 MG PO ×2 (21:00)
[2017-03-24] MEDS ORDERED: DIFLUCAN150 MG PO (21:00)
[2017-03-24 21:23] VITALS: PULSE 97
[2017-03-25] MEDS ORDERED: PHENERGAN 25 TA25 MG PO (11:03)
[2017-03-25] MEDS ORDERED: ERY-TAB500 MG PO (11:06)
[2017-03-25] MEDS ORDERED: ZITHROMAX Z PA250 MG PO (11:06)
== END 2017-03-24 21:24 | disposition home or self-care (01) ==
LOC: COL.ER 20:12
PROVIDERS: Emergency Medicine
DX: J20.9 Acute bronchitis, unspecified (principal); J45.909 Unspecified asthma, uncomplicated

== ENCOUNTER 2017-06-03 23:21 | Emergency (ER) | payer SELFPAY ==
[2006-10-27 23:25] VITALS: BP 121/83
[~2017-06-03] VITALS: Ht 170.2 cm; Wt 98.2 kg
[~2017-06-03 23:21] MED LIST changes: +DOXYCYCLINE 10100 MG PO; +ERY-TAB500 MG PO; +TYLENOL/CODEINE1 ML PO
[2017-06-03 23:30] VITALS: BP 160/90; TEMP 97.9
[2017-06-03] MEDS ORDERED: NORCO 325 MG-7.1 TAB (23:50)
[2017-06-04 00:13] LABS: COLLECTION METHOD CLEAN CATCH
[2017-06-04 00:22] LABS: MUCOUS Present /lpf; PH 5 (5-8); URINE APPEARANCE Cloudy; URINE BACTERIA None Seen /hpf; URINE BILIRUBIN Negative (NEGATIVE); URINE BLOOD 2+ (NEGATIVE); URINE CALCIUM OXALATE CRYSTAL Present /hpf; URINE COLOR Yellow; URINE GLUCOSE Negative (NEGATIVE); URINE KETONE Negative (NEGATIVE); URINE LEUKOCYTE ESTERASE Negative (NEGATIVE); URINE NITRATE Negative (NEGATIVE); URINE PROTEIN(semi-quant) Negative (NEGATIVE); URINE RBC 20-50 /hpf
[2017-06-04] MEDS ORDERED: CEPHALEXIN500 M1 PO (00:38)
[2017-06-04 00:58] VITALS: PULSE 92
== END 2017-06-04 01:02 | disposition home or self-care (01) ==
LOC: COL.ER 23:21
PROVIDERS: Emergency Medicine
DX: N20.1 Calculus of ureter (principal); N23 Unspecified renal colic; Z90.49 Acquired absence of other specified parts of digestive tract; Z90.89 Acquired absence of other organs; Z87.442 Personal history of urinary calculi; Z90.710 Acquired absence of both cervix and uterus; Z98.84 Bariatric surgery status
CPT/HCPCS: J1170; J2405

== ENCOUNTER 2017-06-19 22:37 | Emergency (ER) | payer SELFPAY ==
[2006-10-27 23:25] VITALS: BP 121/83
[~2017-06-19] VITALS: Ht 167.6 cm; Wt 98.2 kg
[~2017-06-19 22:37] MED LIST changes: +DESYREL 50MG50 MG; +NORCO 325 MG-7.1 TAB
[2017-06-19 22:48] VITALS: TEMP 99.1
[2017-06-19 23:47] LABS: COLLECTION METHOD CLEAN CATCH
[2017-06-19 23:52] LABS: BASO # 0.1 (0.0-0.2); BASO % 0.5 % (0.0-2.0); EOS # 0.2 (0.0-0.7); EOS % 1.9 % (0-4.0); GRAN # 5.8 (1.4-6.5); GRAN % 62.3 % (42.2-75.2); HEMATOCRIT 34.4 % (37.0-47.0); HEMOGLOBIN 11.1 g/dl (12.5-16.0); LYMPH # 2.7 (1.2-3.4); LYMPH % 28.4 % (20.0-51.0); MEAN CELL VOLUME 85 fl (80.0-100.0); MEAN CORPUSCULAR HEMOGLOBIN 27 pg (27.0-31.0); MEAN CORPUSCULAR HGB CONC 32 g/dl (33.0-37.0); MEAN PLATELET VOLUME 9.9 fl (7.4-10.4); MONO # 0.6 (0.1-0.6); MONO % 6.7 % (1.7-9.3); PLATELET COUNT 293 K/mm3 (130-400); RED BLOOD COUNT 4.06 M/mm3 (4.10-5.30); REDCELL DISTRIBUTION WIDTH-CV 15.1 % (11.5-14.5)
[2017-06-19 23:59] LABS: HYALINE CAST >12 /lpf; MUCOUS Present /lpf; PH 5 (5-8); SQUAMOUS EPITHELIAL 0-2 /hpf; URINE APPEARANCE Hazy; URINE BACTERIA None Seen /hpf; URINE BILIRUBIN Negative (NEGATIVE); URINE BLOOD 2+ (NEGATIVE); URINE COLOR Red; URINE GLUCOSE Negative (NEGATIVE); URINE KETONE Negative (NEGATIVE); URINE LEUKOCYTE ESTERASE Negative (NEGATIVE); URINE NITRATE Positive (NEGATIVE); URINE PROTEIN(semi-quant) 1+ (NEGATIVE); URINE RBC >50 /hpf; URINE UROBILINOGEN >=4.0 mg/dL (NEGATIVE)
[2017-06-20 00:17] LABS: ALANINE AMINOTRANSFERASE 31 U/L (9-52); ALBUMIN 4.6 gm/dL (3.5-5.0); ALKALINE PHOSPHATASE 98 U/L (50-136); ANION GAP 13 mmol/L (7-16); AST,SGOT 36 U/L (15-37); BILIRUBIN,TOTAL 0.8 mg/dL (0.0-1.0); BLOOD UREA NITROGEN 22 mg/dL (7-17); CALCIUM 9.2 mg/dL (8.4-10.2); CARBON DIOXIDE 24 mmol/L (22-30); CHLORIDE 103 mmol/L (98-107); CREATININE, serum 1.28 mg/dL (0.52-1.25); GLUCOSE 123 mg/dL (74-106); POTASSIUM 3.6 mmol/L (3.4-5.0); SODIUM 140 mmol/L (137-145); TOTAL PROTEIN 7.4 gm/dL (6.4-8.2)
[2017-06-20 00:25] LABS: C-REACTIVE PROTEIN < 0.5 mg/dL (0.0-0.9)
[2017-06-20] MEDS ORDERED: CIPRO 500MG TA500 MG PO (02:34)
[2017-06-20] MEDS ORDERED: NORCO 325 MG-51 TAB PO (02:34)
[2017-06-20 02:36] VITALS: BP 123/77; PULSE 79
== END 2017-06-20 02:50 | disposition home or self-care (01) ==
LOC: COL.ER 22:37
PROVIDERS: Family Medicine
DX: N20.1 Calculus of ureter (principal); N23 Unspecified renal colic; N39.0 Urinary tract infection, site not specified; Z87.442 Personal history of urinary calculi; Z87.891 Personal history of nicotine dependence
CPT/HCPCS: J0696; J2270; J2405; J7030; Q9967

== ENCOUNTER 2017-07-04 01:27 | Emergency (ER) | payer SELFPAY ==
[~2017-07-04] VITALS: Ht 170.2 cm; Wt 95.5 kg
[2017-07-04 01:36] VITALS: BP 183/84; TEMP 98.1
[2017-07-04 02:07] LABS: COLLECTION METHOD CLEAN CATCH
[2017-07-04 02:14] LABS: MUCOUS Present /lpf; PH 5 (5-8); SQUAMOUS EPITHELIAL 0-2 /hpf; URINE APPEARANCE Cloudy; URINE BACTERIA Rare /hpf; URINE BILIRUBIN Negative (NEGATIVE); URINE BLOOD 3+ (NEGATIVE); URINE COLOR Amber; URINE GLUCOSE Negative (NEGATIVE); URINE KETONE Negative (NEGATIVE); URINE LEUKOCYTE ESTERASE Negative (NEGATIVE); URINE NITRATE Negative (NEGATIVE); URINE PROTEIN(semi-quant) 1+ (NEGATIVE); URINE RBC >50 /hpf
[2017-07-04] MEDS ORDERED: CEFTIN500 MG PO (02:45)
[2017-07-04 03:08] VITALS: PULSE 89
== END 2017-07-04 03:09 | disposition home or self-care (01) ==
LOC: COL.ER 01:27
PROVIDERS: Nurse Practitioner
DX: R10.9 Unspecified abdominal pain (principal); Z87.442 Personal history of urinary calculi; Z90.49 Acquired absence of other specified parts of digestive tract; Z90.89 Acquired absence of other organs; Z90.710 Acquired absence of both cervix and uterus
CPT/HCPCS: J2270; J2550

== ENCOUNTER 2017-09-18 20:35 | Emergency (ER) | payer SELFPAY ==
[2006-10-27 23:25] VITALS: BP 121/83
[~2017-09-18] VITALS: Ht 170.2 cm; Wt 92.3 kg
[2017-09-18 20:40] VITALS: BP 141/77; TEMP 98.5
[2017-09-18] MEDS ORDERED: ULTRAM 50MG TAB50 MG PO (20:50)
[2017-09-18 22:13] VITALS: PULSE 83
== END 2017-09-18 22:13 | disposition home or self-care (01) ==
LOC: COL.ER 20:35
DX: G43.909 Migraine, unspecified, not intractable, without status migrainosus (principal); M72.2 Plantar fascial fibromatosis; J45.909 Unspecified asthma, uncomplicated; M79.7 Fibromyalgia; Z87.442 Personal history of urinary calculi
CPT/HCPCS: J0595; J1200; J2550

== ENCOUNTER 2017-09-30 17:35 | Emergency (ER) | payer SELFPAY ==
[2006-10-27 23:25] VITALS: BP 121/83
[~2017-09-30] VITALS: Ht 170.2 cm; Wt 89.5 kg
[2017-09-30 17:43] VITALS: TEMP 99.2
[2017-09-30 18:52] LABS: COLLECTION METHOD CLEAN CATCH
[2017-09-30 18:58] LABS: BASO % 0.5 % (0.0-2.0); EOS # 0.1 (0.0-0.7); EOS % 1.2 % (0-4.0); GRAN % 53.1 % (42.2-75.2); HEMATOCRIT 38.9 % (37.0-47.0); HEMOGLOBIN 12.6 g/dl (12.5-16.0); LYMPH # 2.9 (1.2-3.4); LYMPH % 38.7 % (20.0-51.0); MEAN CELL VOLUME 79 fl (80.0-100.0); MEAN CORPUSCULAR HEMOGLOBIN 26 pg (27.0-31.0); MEAN CORPUSCULAR HGB CONC 32 g/dl (33.0-37.0); MEAN PLATELET VOLUME 9.3 fl (7.4-10.4); MONO # 0.5 (0.1-0.6); MONO % 6.2 % (1.7-9.3); PLATELET COUNT 356 K/mm3 (130-400); RED BLOOD COUNT 4.94 M/mm3 (4.10-5.30); REDCELL DISTRIBUTION WIDTH-CV 14.6 % (11.5-14.5)
[2017-09-30 19:05] LABS: ALBUMIN 4.1 gm/dL (3.5-5.0); BILIRUBIN,TOTAL 0.5 mg/dL (0.0-1.0); CALCIUM 9.2 mg/dL (8.4-10.2); CREATININE, serum 0.76 mg/dL (0.52-1.25); POTASSIUM 3.8 mmol/L (3.4-5.0); TOTAL PROTEIN 7.7 gm/dL (6.4-8.2)
[2017-09-30 19:06] LABS: MUCOUS Present /lpf; PH 5 (5-8); SQUAMOUS EPITHELIAL 0-2 /hpf; URINE APPEARANCE Clear; URINE BACTERIA None Seen /hpf; URINE BILIRUBIN Positive (NEGATIVE); URINE BLOOD Negative (NEGATIVE); URINE COLOR Amber; URINE GLUCOSE Negative (NEGATIVE); URINE KETONE Negative (NEGATIVE); URINE LEUKOCYTE ESTERASE Negative (NEGATIVE); URINE NITRATE Positive (NEGATIVE); URINE PROTEIN(semi-quant) Negative (NEGATIVE); URINE UROBILINOGEN >=4.0 mg/dL (NEGATIVE)
[2017-09-30 21:18] VITALS: BP 132/82; PULSE 68
== END 2017-09-30 21:22 | disposition home or self-care (01) ==
LOC: COL.ER 17:35
PROVIDERS: Physician Assistant
DX: K52.9 Noninfective gastroenteritis and colitis, unspecified (principal); Z87.442 Personal history of urinary calculi; Z90.49 Acquired absence of other specified parts of digestive tract; Z90.710 Acquired absence of both cervix and uterus
CPT/HCPCS: J0500; J2270; J2405; J3010; J7030

== ENCOUNTER 2017-10-03 22:46 | Emergency (ER) | payer SELFPAY ==
[2006-10-27 23:25] VITALS: BP 121/83
[~2017-10-03] VITALS: Ht 170.2 cm; Wt 93.2 kg
[2017-10-03 22:51] VITALS: BP 135/82; TEMP 98.8
[2017-10-03] MEDS ORDERED: PEN-VEE K500 MG PO (23:07)
[2017-10-03 23:54] VITALS: PULSE 101
== END 2017-10-03 23:52 | disposition home or self-care (01) ==
LOC: COL.ER 22:46
DX: K08.89 Other specified disorders of teeth and supporting structures (principal); G43.909 Migraine, unspecified, not intractable, without status migrainosus; Z87.442 Personal history of urinary calculi
CPT/HCPCS: J0595; J2550

== ENCOUNTER 2017-11-08 21:34 | Emergency (ER) | payer SELFPAY ==
[2006-10-27 23:25] VITALS: BP 121/83
[~2017-11-08] VITALS: Ht 170.2 cm; Wt 93.6 kg
[~2017-11-08 21:34] MED LIST changes: -MIRAPEX0.25 MG PO; +OMNICEF 300MG300 MG PO
[2017-11-08 21:38] VITALS: TEMP 99.1
[2017-11-08 21:52] LABS: COLLECTION METHOD CLEAN CATCH
[2017-11-08] MEDS ORDERED: DESYREL 50MG50 MG PO (21:55)
[2017-11-08 21:57] LABS: MUCOUS Present /lpf; PH 5 (5-8); SQUAMOUS EPITHELIAL 0-2 /hpf; URINE APPEARANCE Clear; URINE BACTERIA None Seen /hpf; URINE BILIRUBIN Positive (NEGATIVE); URINE BLOOD Negative (NEGATIVE); URINE COLOR Amber; URINE GLUCOSE Negative (NEGATIVE); URINE KETONE Negative (NEGATIVE); URINE LEUKOCYTE ESTERASE Negative (NEGATIVE); URINE NITRATE Positive (NEGATIVE); URINE PROTEIN(semi-quant) Negative (NEGATIVE); URINE UROBILINOGEN >=4.0 mg/dL (NEGATIVE)
[2017-11-08 22:30] LABS: BASO % 0.3 % (0.0-2.0); EOS # 0.1 (0.0-0.7); EOS % 1.8 % (0-4.0); GRAN # 3.1 (1.4-6.5); GRAN % 49.6 % (42.2-75.2); LYMPH # 2.6 (1.2-3.4); LYMPH % 41.6 % (20.0-51.0); MEAN CELL VOLUME 81 fl (80.0-100.0); MEAN CORPUSCULAR HEMOGLOBIN 25 pg (27.0-31.0); MEAN CORPUSCULAR HGB CONC 31 g/dl (33.0-37.0); MEAN PLATELET VOLUME 9.4 fl (7.4-10.4); MONO # 0.4 (0.1-0.6); MONO % 6.5 % (1.7-9.3); PLATELET COUNT 329 K/mm3 (130-400); RED BLOOD COUNT 4.36 M/mm3 (4.10-5.30); REDCELL DISTRIBUTION WIDTH-CV 15.3 % (11.5-14.5)
[2017-11-08 22:33] LABS: HEMATOCRIT 35.2 % (37.0-47.0)
[2017-11-08 22:39] LABS: CREATININE, serum 0.76 mg/dL (0.52-1.25)
[2017-11-08 23:46] VITALS: BP 113/93; PULSE 82
== END 2017-11-08 23:46 | disposition home or self-care (01) ==
LOC: COL.ER 21:34
PROVIDERS: Emergency Medicine
DX: N20.1 Calculus of ureter (principal); N23 Unspecified renal colic; Z87.442 Personal history of urinary calculi
CPT/HCPCS: J1170; J2405; J7030

== ENCOUNTER 2017-12-04 03:11 | Emergency (ER) | payer SELFPAY ==
[2006-10-27 23:25] VITALS: BP 121/83
[~2017-12-04] VITALS: Ht 170.2 cm; Wt 93.2 kg
[2017-12-04 03:16] VITALS: BP 154/97; TEMP 99.2
[2017-12-04 03:43] LABS: BASO % 0.3 % (0.0-2.0); EOS # 0.1 (0.0-0.7); EOS % 0.7 % (0-4.0); GRAN # 7.1 (1.4-6.5); GRAN % 71.2 % (42.2-75.2); HEMOGLOBIN 11.1 g/dl (12.5-16.0); LYMPH # 2.3 (1.2-3.4); LYMPH % 22.7 % (20.0-51.0); MEAN CELL VOLUME 80 fl (80.0-100.0); MEAN CORPUSCULAR HEMOGLOBIN 25 pg (27.0-31.0); MEAN CORPUSCULAR HGB CONC 31 g/dl (33.0-37.0); MEAN PLATELET VOLUME 9.3 fl (7.4-10.4); MONO # 0.5 (0.1-0.6); MONO % 4.7 % (1.7-9.3); PLATELET COUNT 323 K/mm3 (130-400); RED BLOOD COUNT 4.45 M/mm3 (4.10-5.30); REDCELL DISTRIBUTION WIDTH-CV 14.7 % (11.5-14.5)
[2017-12-04 03:45] LABS: HEMATOCRIT 35.7 % (37.0-47.0)
[2017-12-04 03:52] LABS: ALBUMIN 4.2 gm/dL (3.5-5.0); BILIRUBIN,TOTAL 0.3 mg/dL (0.0-1.0); CALCIUM 9.1 mg/dL (8.4-10.2); CREATININE, serum 0.88 mg/dL (0.52-1.25); POTASSIUM 3.7 mmol/L (3.4-5.0); TOTAL PROTEIN 7.3 gm/dL (6.4-8.2)
[2017-12-04 04:22] LABS: COLLECTION METHOD CLEAN CATCH
[2017-12-04 04:33] LABS: AMORPHOUS CRYSTAL Present /uL; MUCOUS Present /lpf; PH 5 (5-8); SQUAMOUS EPITHELIAL 0-2 /hpf; URINE APPEARANCE Cloudy; URINE BACTERIA None Seen /hpf; URINE BILIRUBIN Negative (NEGATIVE); URINE BLOOD 3+ (NEGATIVE); URINE COLOR Amber; URINE GLUCOSE Negative (NEGATIVE); URINE KETONE Negative (NEGATIVE); URINE LEUKOCYTE ESTERASE Negative (NEGATIVE); URINE NITRATE Positive (NEGATIVE); URINE PROTEIN(semi-quant) 2+ (NEGATIVE); URINE RBC >50 /hpf
[2017-12-04] MEDS ORDERED: NORCO 325 MG-7.1 TAB PO (05:06)
[2017-12-04] MEDS ORDERED: PHENERGAN 25 TA25 MG PO (05:06)
[2017-12-04] MEDS ORDERED: CEFTIN500 MG PO (05:06)
[2017-12-04 05:17] VITALS: PULSE 88
[2017-12-05] MEDS ORDERED: ULTRAM 50MG TAB50 MG PO (08:11)
== END 2017-12-04 05:17 | disposition home or self-care (01) ==
LOC: COL.ER 03:11
PROVIDERS: Emergency Medicine
DX: N39.0 Urinary tract infection, site not specified (principal); Z87.442 Personal history of urinary calculi
CPT/HCPCS: J1170; J2405; J7030

== ENCOUNTER 2017-12-05 05:33 | Observation (INO) | payer SELFPAY ==
[~2017-12-05] VITALS: Ht 170.2 cm; Wt 92.5 kg
[~2017-12-05 05:33] MED LIST changes: +NORCO 325 MG-7.1 TAB PO
[2017-12-05] MEDS ORDERED: ULTRAM 50MG TAB50 MG PO (08:11)
[2017-12-05 08:44] VITALS: BP 126/68; PULSE 84; TEMP 99
[2017-12-05 11:33] VITALS: BP 111/71; PULSE 72; TEMP 98.9
[2017-12-05 15:45] VITALS: BP 88/46; PULSE 64
[2017-12-05 19:06] VITALS: BP 112/62; PULSE 74; TEMP 98.4
[2017-12-05 23:31] VITALS: BP 127/75; PULSE 64; TEMP 98.5
[2017-12-06 03:50] VITALS: BP 128/62; PULSE 60; TEMP 98.3
[2017-12-06 08:18] VITALS: BP 139/69; PULSE 67; TEMP 98.1
[2017-12-06 12:22] VITALS: BP 123/83; PULSE 75; TEMP 98.2
[2017-12-06] MEDS ORDERED: FLOMAX 0.40.4 MG/CAP PO (15:17)
[2017-12-06] MEDS ORDERED: PERCOCET 325 MG1 TA2 PO (15:17)
[2017-12-06] MEDS ORDERED: OMNICEF 300MG300 MG PO (15:17)
== END 2017-12-06 15:30 | disposition home or self-care (01) ==
LOC: COL.ER 05:33 → SURG 07:42
DX: N13.2 Hydronephrosis with renal and ureteral calculous obstruction (principal); Z87.442 Personal history of urinary calculi; Z98.84 Bariatric surgery status; G25.81 Restless legs syndrome; M79.7 Fibromyalgia; M43.06 Spondylolysis, lumbar region; E66.9 Obesity, unspecified
CPT/HCPCS: J0696; J1100; J1170; J2405; J2704; J3010; J7030; Q9967

== ENCOUNTER 2018-01-28 22:40 | Emergency (ER) | payer SELFPAY ==
[2006-10-27 23:25] VITALS: BP 121/83
[~2018-01-28] VITALS: Ht 170.2 cm; Wt 100.0 kg
[2018-01-28 22:46] VITALS: TEMP 99.7
[2018-01-28 23:20] LABS: BASO % 0.5 % (0.0-2.0); EOS # 0.2 (0.0-0.7); EOS % 2.2 % (0-4.0); GRAN # 3.4 (1.4-6.5); GRAN % 46.6 % (42.2-75.2); HEMOGLOBIN 10.7 g/dl (12.5-16.0); LYMPH # 3.1 (1.2-3.4); LYMPH % 42.4 % (20.0-51.0); MEAN CELL VOLUME 82 fl (80.0-100.0); MEAN CORPUSCULAR HEMOGLOBIN 25 pg (27.0-31.0); MEAN CORPUSCULAR HGB CONC 31 g/dl (33.0-37.0); MEAN PLATELET VOLUME 9.6 fl (7.4-10.4); MONO # 0.6 (0.1-0.6); MONO % 7.9 % (1.7-9.3); PLATELET COUNT 329 K/mm3 (130-400); RED BLOOD COUNT 4.23 M/mm3 (4.10-5.30); REDCELL DISTRIBUTION WIDTH-CV 14.9 % (11.5-14.5)
[2018-01-28 23:24] LABS: HEMATOCRIT 34.5 % (37.0-47.0)
[2018-01-28 23:25] LABS: BILIRUBIN,TOTAL 0.5 mg/dL (0.0-1.0); CALCIUM 9.1 mg/dL (8.4-10.2); CREATININE, serum 0.87 mg/dL (0.52-1.25); TOTAL PROTEIN 7.2 gm/dL (6.4-8.2)
[2018-01-28 23:28] LABS: COLLECTION METHOD CLEAN CATCH
[2018-01-28 23:41] LABS: MUCOUS Present /lpf; PH 5 (5-8); SQUAMOUS EPITHELIAL 0-2 /hpf; URINE APPEARANCE Clear; URINE BACTERIA None Seen /hpf; URINE BILIRUBIN Negative (NEGATIVE); URINE BLOOD Negative (NEGATIVE); URINE COLOR Red; URINE GLUCOSE Negative (NEGATIVE); URINE KETONE Negative (NEGATIVE); URINE LEUKOCYTE ESTERASE Negative (NEGATIVE); URINE NITRATE Positive (NEGATIVE); URINE PROTEIN(semi-quant) 2+ (NEGATIVE); URINE UROBILINOGEN >=4.0 mg/dL (NEGATIVE)
[2018-01-29 00:40] VITALS: BP 115/80; PULSE 79
== END 2018-01-29 00:46 | disposition home or self-care (01) ==
LOC: COL.ER 22:40
PROVIDERS: Emergency Medicine
DX: N20.1 Calculus of ureter (principal); N23 Unspecified renal colic; I10 Essential (primary) hypertension; M79.7 Fibromyalgia; Z98.84 Bariatric surgery status; Z87.442 Personal history of urinary calculi; Z90.710 Acquired absence of both cervix and uterus
CPT/HCPCS: J1170; J2765; J7030

== ENCOUNTER 2018-02-12 17:06 | Emergency (ER) | payer SELFPAY ==
[2006-10-27 23:25] VITALS: BP 121/83
[~2018-02-12] VITALS: Ht 170.2 cm; Wt 97.7 kg
[2018-02-12 17:13] VITALS: BP 144/96; TEMP 99.2
[2018-02-12 17:29] LABS: COLLECTION METHOD CLEAN CATCH
[2018-02-12 17:58] LABS: MUCOUS Present /lpf; PH 5 (5-8); URINE APPEARANCE Clear; URINE BACTERIA None Seen /hpf; URINE BILIRUBIN Negative (NEGATIVE); URINE BLOOD 3+ (NEGATIVE); URINE COLOR Yellow; URINE GLUCOSE Negative (NEGATIVE); URINE KETONE Negative (NEGATIVE); URINE LEUKOCYTE ESTERASE Negative (NEGATIVE); URINE NITRATE Negative (NEGATIVE); URINE PROTEIN(semi-quant) Negative (NEGATIVE); URINE RBC >50 /hpf
[2018-02-12 18:05] LABS: BASO % 0.5 % (0.0-2.0); EOS # 0.1 (0.0-0.7); EOS % 1.7 % (0-4.0); GRAN # 3.1 (1.4-6.5); GRAN % 47.2 % (42.2-75.2); HEMOGLOBIN 11.3 g/dl (12.5-16.0); LYMPH # 2.7 (1.2-3.4); LYMPH % 41.1 % (20.0-51.0); MEAN CELL VOLUME 80 fl (80.0-100.0); MEAN CORPUSCULAR HEMOGLOBIN 25 pg (27.0-31.0); MEAN CORPUSCULAR HGB CONC 31 g/dl (33.0-37.0); MEAN PLATELET VOLUME 9.3 fl (7.4-10.4); MONO # 0.6 (0.1-0.6); MONO % 8.7 % (1.7-9.3); PLATELET COUNT 350 K/mm3 (130-400); RED BLOOD COUNT 4.54 M/mm3 (4.10-5.30); REDCELL DISTRIBUTION WIDTH-CV 14.7 % (11.5-14.5)
[2018-02-12 18:07] LABS: HEMATOCRIT 36.3 % (37.0-47.0)
[2018-02-12 18:17] LABS: ALANINE AMINOTRANSFERASE 28 U/L (9-52); ALBUMIN 4.2 gm/dL (3.5-5.0); ALKALINE PHOSPHATASE 105 U/L (50-136); ANION GAP 5 mmol/L (7-16); AST,SGOT 30 U/L (15-37); BILIRUBIN,TOTAL 0.3 mg/dL (0.0-1.0); BLOOD UREA NITROGEN 17 mg/dL (7-17); CALCIUM 9.3 mg/dL (8.4-10.2); CARBON DIOXIDE 27 mmol/L (22-30); CHLORIDE 105 mmol/L (98-107); CREATININE, serum 0.68 mg/dL (0.52-1.25); GLUCOSE 93 mg/dL (74-106); POTASSIUM 4.2 mmol/L (3.4-5.0); SODIUM 138 mmol/L (137-145); TOTAL PROTEIN 7.2 gm/dL (6.4-8.2)
[2018-02-12 18:18] LABS: C-REACTIVE PROTEIN < 0.5 mg/dL (0.0-0.9)
[2018-02-12] MEDS ORDERED: PHENERGAN 25 TA25 MG PO (18:44)
[2018-02-12] MEDS ORDERED: NORCO 325 MG-7.1 TAB PO (18:44)
[2018-02-12 18:56] VITALS: PULSE 76
== END 2018-02-12 18:57 | disposition home or self-care (01) ==
LOC: COL.ER 17:06
PROVIDERS: Nurse Practitioner
DX: S92.512A Displaced fracture of proximal phalanx of left lesser toe(s), initial encounter for closed fracture (principal); R31.9 Hematuria, unspecified; R10.9 Unspecified abdominal pain; J45.909 Unspecified asthma, uncomplicated; Z87.442 Personal history of urinary calculi; Z90.710 Acquired absence of both cervix and uterus; Z90.89 Acquired absence of other organs; Z98.84 Bariatric surgery status; W22.8XXA Striking against or struck by other objects, initial encounter
CPT/HCPCS: J1170; J2405; J7030

== ENCOUNTER 2018-03-16 18:06 | Emergency (ER) | payer SELFPAY ==
[2006-10-27 23:25] VITALS: BP 121/83
[~2018-03-16] VITALS: Ht 170.2 cm; Wt 102.3 kg
[2018-03-16 18:15] VITALS: TEMP 98.7
[2018-03-16 18:35] LABS: COLLECTION METHOD CLEAN CATCH
[2018-03-16 18:37] LABS: BASO % 0.5 % (0.0-2.0); EOS # 0.2 (0.0-0.7); EOS % 1.9 % (0-4.0); GRAN # 3.9 (1.4-6.5); GRAN % 48.6 % (42.2-75.2); HEMATOCRIT 37.4 % (37.0-47.0); HEMOGLOBIN 11.4 g/dl (12.5-16.0); LYMPH # 3.4 (1.2-3.4); LYMPH % 41.9 % (20.0-51.0); MEAN CELL VOLUME 81 fl (80.0-100.0); MEAN CORPUSCULAR HEMOGLOBIN 25 pg (27.0-31.0); MEAN CORPUSCULAR HGB CONC 31 g/dl (33.0-37.0); MEAN PLATELET VOLUME 9.5 fl (7.4-10.4); MONO # 0.5 (0.1-0.6); MONO % 6.7 % (1.7-9.3); PLATELET COUNT 349 K/mm3 (130-400); RED BLOOD COUNT 4.62 M/mm3 (4.10-5.30); REDCELL DISTRIBUTION WIDTH-CV 15.3 % (11.5-14.5)
[2018-03-16 18:44] LABS: MUCOUS Present /lpf; PH 5 (5-8); SQUAMOUS EPITHELIAL 0-2 /hpf; URINE APPEARANCE Clear; URINE BACTERIA Occasional /hpf; URINE BILIRUBIN Negative (NEGATIVE); URINE BLOOD 3+ (NEGATIVE); URINE COLOR Red; URINE GLUCOSE Negative (NEGATIVE); URINE KETONE Negative (NEGATIVE); URINE LEUKOCYTE ESTERASE Negative (NEGATIVE); URINE NITRATE Positive (NEGATIVE); URINE PROTEIN(semi-quant) 2+ (NEGATIVE); URINE RBC >50 /hpf
[2018-03-16 18:58] LABS: ALBUMIN 4.3 gm/dL (3.5-5.0); BILIRUBIN,TOTAL 0.5 mg/dL (0.0-1.0); CALCIUM 9.3 mg/dL (8.4-10.2); CREATININE, serum 0.79 mg/dL (0.52-1.25); POTASSIUM 3.8 mmol/L (3.4-5.0); TOTAL PROTEIN 7.4 gm/dL (6.4-8.2)
[2018-03-16] MEDS ORDERED: CEFTIN 250250 MG/TAB PO (20:25)
[2018-03-16] MEDS ORDERED: PHENERGAN 25 TA25 MG PO (20:26)
[2018-03-16 20:45] VITALS: BP 125/80; PULSE 92
== END 2018-03-16 20:50 | disposition home or self-care (01) ==
LOC: COL.ER 18:06
PROVIDERS: Nurse Practitioner
DX: N39.0 Urinary tract infection, site not specified (principal); J45.909 Unspecified asthma, uncomplicated; Z87.442 Personal history of urinary calculi; Z90.49 Acquired absence of other specified parts of digestive tract; Z90.89 Acquired absence of other organs; Z90.710 Acquired absence of both cervix and uterus; Z98.84 Bariatric surgery status
CPT/HCPCS: A4216; J0696; J1170; J2405; J7030

== ENCOUNTER 2018-04-05 23:33 | Emergency (ER) | payer SELFPAY ==
[2006-10-27 23:25] VITALS: BP 121/83
[~2018-04-05] VITALS: Ht 170.2 cm; Wt 102.3 kg
[~2018-04-05 23:33] MED LIST changes: +CEFTIN 250250 MG/TAB PO
[2018-04-05 23:35] VITALS: BP 162/81; TEMP 99.2
[2018-04-05 23:48] LABS: COLLECTION METHOD CLEAN CATCH
[2018-04-06 00:01] LABS: AMORPHOUS CRYSTAL Present /uL; MUCOUS Present /lpf; PH 5 (5-8); URINE APPEARANCE Hazy; URINE BACTERIA None Seen /hpf; URINE BILIRUBIN Negative (NEGATIVE); URINE BLOOD 3+ (NEGATIVE); URINE COLOR Amber; URINE GLUCOSE Negative (NEGATIVE); URINE KETONE Negative (NEGATIVE); URINE LEUKOCYTE ESTERASE Negative (NEGATIVE); URINE NITRATE Positive (NEGATIVE); URINE PROTEIN(semi-quant) 1+ (NEGATIVE); URINE RBC >50 /hpf; URINE UROBILINOGEN >=4.0 mg/dL (NEGATIVE)
[2018-04-06] MEDS ORDERED: NORCO 325 MG-51 TAB PO (00:21)
[2018-04-06] MEDS ORDERED: CEFTIN500 MG PO (00:21)
[2018-04-06 00:48] VITALS: PULSE 90
== END 2018-04-06 00:48 | disposition home or self-care (01) ==
LOC: COL.ER 23:33
PROVIDERS: Nurse Practitioner
DX: N39.0 Urinary tract infection, site not specified (principal); Z87.442 Personal history of urinary calculi; Z98.84 Bariatric surgery status; Z90.710 Acquired absence of both cervix and uterus; Z90.89 Acquired absence of other organs
CPT/HCPCS: J2270; J2550

== ENCOUNTER 2018-04-15 23:50 | Emergency (ER) | payer SELFPAY ==
[2006-10-27 23:25] VITALS: BP 121/83
[~2018-04-15] VITALS: Ht 170.2 cm; Wt 102.3 kg
[2018-04-15 23:52] VITALS: TEMP 99.4
[2018-04-16 01:01] LABS: COLLECTION METHOD CLEAN CATCH
[2018-04-16 01:04] LABS: BASO % 0.4 % (0.0-2.0); EOS # 0.1 (0.0-0.7); EOS % 1.8 % (0-4.0); GRAN # 2.6 (1.4-6.5); GRAN % 38.8 % (42.2-75.2); HEMOGLOBIN 10.6 g/dl (12.5-16.0); LYMPH # 3.4 (1.2-3.4); LYMPH % 50.4 % (20.0-51.0); MEAN CELL VOLUME 80 fl (80.0-100.0); MEAN CORPUSCULAR HEMOGLOBIN 24 pg (27.0-31.0); MEAN CORPUSCULAR HGB CONC 30 g/dl (33.0-37.0); MEAN PLATELET VOLUME 9.4 fl (7.4-10.4); MONO # 0.5 (0.1-0.6); PLATELET COUNT 313 K/mm3 (130-400); RED BLOOD COUNT 4.37 M/mm3 (4.10-5.30); REDCELL DISTRIBUTION WIDTH-CV 15.4 % (11.5-14.5)
[2018-04-16 01:07] LABS: HEMATOCRIT 35.1 % (37.0-47.0)
[2018-04-16 01:22] LABS: ALANINE AMINOTRANSFERASE 22 U/L (9-52); ALBUMIN 4.1 gm/dL (3.5-5.0); ALKALINE PHOSPHATASE 99 U/L (50-136); ANION GAP 4 mmol/L (7-16); AST,SGOT 26 U/L (15-37); BILIRUBIN,TOTAL 0.3 mg/dL (0.0-1.0); BLOOD UREA NITROGEN 20 mg/dL (7-17); CARBON DIOXIDE 29 mmol/L (22-30); CHLORIDE 107 mmol/L (98-107); CREATININE, serum 0.78 mg/dL (0.52-1.25); GLUCOSE 102 mg/dL (74-106); LIPASE 116 U/L (23-300); POTASSIUM 4.1 mmol/L (3.4-5.0); SODIUM 140 mmol/L (137-145)
[2018-04-16 01:23] LABS: C-REACTIVE PROTEIN < 0.5 mg/dL (0.0-0.9)
[2018-04-16 01:29] LABS: AMORPHOUS CRYSTAL Present /uL; MUCOUS Present /lpf; PH 5 (5-8); SQUAMOUS EPITHELIAL 0-2 /hpf; URINE APPEARANCE Hazy; URINE BACTERIA None Seen /hpf; URINE BILIRUBIN Negative (NEGATIVE); URINE BLOOD 3+ (NEGATIVE); URINE CALCIUM OXALATE CRYSTAL Present /hpf; URINE COLOR Red; URINE GLUCOSE 1+ (NEGATIVE); URINE KETONE Negative (NEGATIVE); URINE LEUKOCYTE ESTERASE Negative (NEGATIVE); URINE NITRATE Positive (NEGATIVE); URINE PROTEIN(semi-quant) 2+ (NEGATIVE); URINE RBC >50 /hpf
[2018-04-16] MEDS ORDERED: PHENERGAN 25 TA25 MG PO (01:56)
[2018-04-16] MEDS ORDERED: NORCO 325 MG-51 TAB PO (01:56)
[2018-04-16] MEDS ORDERED: AMOXICILLIN875 MG PO (01:56)
[2018-04-16] MEDS ORDERED: DIFLUCAN150 MG PO (01:56)
[2018-04-16 02:11] VITALS: BP 127/88; PULSE 86
== END 2018-04-16 02:15 | disposition home or self-care (01) ==
LOC: COL.ER 23:50
PROVIDERS: Physician Assistant
DX: J01.90 Acute sinusitis, unspecified (principal); R31.9 Hematuria, unspecified; Z87.442 Personal history of urinary calculi; Z90.89 Acquired absence of other organs; Z90.710 Acquired absence of both cervix and uterus; Z98.84 Bariatric surgery status; Z88.2 Allergy status to sulfonamides; Z88.5 Allergy status to narcotic agent
CPT/HCPCS: J1170; J2405; J7030

== ENCOUNTER 2018-04-21 17:18 | Emergency (ER) | payer SELFPAY ==
[2006-10-27 23:25] VITALS: BP 121/83
[~2018-04-21] VITALS: Ht 170.2 cm; Wt 100.0 kg
[~2018-04-21 17:18] MED LIST changes: +AMOXICILLIN875 MG PO
[2018-04-21 17:25] VITALS: TEMP 99.7
[2018-04-21 18:19] LABS: COLLECTION METHOD CLEAN CATCH
[2018-04-21 18:33] LABS: MUCOUS Present /lpf; PH 5 (5-8); URINE APPEARANCE Clear; URINE BACTERIA None Seen /hpf; URINE BILIRUBIN Negative (NEGATIVE); URINE BLOOD 3+ (NEGATIVE); URINE COLOR Yellow; URINE GLUCOSE Negative (NEGATIVE); URINE KETONE Negative (NEGATIVE); URINE LEUKOCYTE ESTERASE Negative (NEGATIVE); URINE NITRATE Negative (NEGATIVE); URINE PROTEIN(semi-quant) Negative (NEGATIVE); URINE RBC >50 /hpf; URINE UROBILINOGEN >=4.0 mg/dL (NEGATIVE)
[2018-04-21] MEDS ORDERED: CLEOCIN HC150 MG/CAP PO (19:04)
[2018-04-21 19:23] VITALS: BP 133/93; PULSE 88
== END 2018-04-21 19:25 | disposition home or self-care (01) ==
LOC: COL.ER 17:18
PROVIDERS: Emergency Medicine
DX: N23 Unspecified renal colic (principal); K08.89 Other specified disorders of teeth and supporting structures; M79.7 Fibromyalgia; Z90.49 Acquired absence of other specified parts of digestive tract; Z90.710 Acquired absence of both cervix and uterus; Z98.84 Bariatric surgery status
CPT/HCPCS: J3010

== ENCOUNTER 2018-04-25 14:48 | Emergency (ER) | payer SELFPAY ==
[2006-10-27 23:25] VITALS: BP 121/83
[~2018-04-25] VITALS: Ht 170.2 cm; Wt 102.3 kg
[2018-04-25 15:03] VITALS: BP 139/86
[2018-04-25] MEDS ORDERED: NORCO 325 MG-7.1 TAB PO (18:16)
[2018-04-25 19:02] VITALS: PULSE 85; TEMP 100
== END 2018-04-25 19:01 | disposition home or self-care (01) ==
LOC: COL.ER 14:48
DX: S62.396A Other fracture of fifth metacarpal bone, right hand, initial encounter for closed fracture (principal); W18.39XA Other fall on same level, initial encounter; Y92.009 Unspecified place in unspecified non-institutional (private) residence as the place of occurrence of the external cause
CPT/HCPCS: Q4021

== ENCOUNTER 2018-05-18 20:54 | Emergency (ER) | payer SELFPAY ==
[2006-10-27 23:25] VITALS: BP 121/83
[~2018-05-18] VITALS: Ht 170.2 cm; Wt 102.3 kg
[2018-05-18 20:57] VITALS: BP 169/86; PULSE 101; TEMP 99.3
== END 2018-05-18 22:12 | disposition home or self-care (01) ==
LOC: COL.ER 20:54
DX: S62.336A Displaced fracture of neck of fifth metacarpal bone, right hand, initial encounter for closed fracture (principal); W00.0XXA Fall on same level due to ice and snow, initial encounter; Y92.009 Unspecified place in unspecified non-institutional (private) residence as the place of occurrence of the external cause
CPT/HCPCS: Q4021

== ENCOUNTER 2018-05-28 18:29 | Emergency (ER) | payer SELFPAY ==
[2006-10-27 23:25] VITALS: BP 121/83
[~2018-05-28] VITALS: Ht 170.2 cm; Wt 102.3 kg
[2018-05-28 18:40] VITALS: TEMP 98
[2018-05-28] MEDS ORDERED: NORCO2.5 PO (18:48)
[2018-05-28] MEDS ORDERED: DESYREL 50MG50 MG PO (18:49)
[2018-05-28 19:00] LABS: COLLECTION METHOD CLEAN CATCH
[2018-05-28 19:09] LABS: MUCOUS Present /lpf; PH 5 (5-8); SQUAMOUS EPITHELIAL 0-2 /hpf; URINE APPEARANCE Clear; URINE BACTERIA None Seen /hpf; URINE BILIRUBIN Negative (NEGATIVE); URINE BLOOD 2+ (NEGATIVE); URINE COLOR Red; URINE GLUCOSE 1+ (NEGATIVE); URINE KETONE Negative (NEGATIVE); URINE LEUKOCYTE ESTERASE Negative (NEGATIVE); URINE NITRATE Positive (NEGATIVE); URINE PROTEIN(semi-quant) 2+ (NEGATIVE); URINE RBC >50 /hpf; URINE UROBILINOGEN >=4.0 mg/dL (NEGATIVE)
[2018-05-28] MEDS ORDERED: PHENERGAN 25 TA25 MG PO (20:20)
[2018-05-28] MEDS ORDERED: NORCO 325 MG-51 TAB PO (20:20)
[2018-05-28 20:33] VITALS: BP 140/92; PULSE 92
== END 2018-05-28 20:35 | disposition home or self-care (01) ==
LOC: COL.ER 18:29
PROVIDERS: Family Medicine
DX: N20.1 Calculus of ureter (principal); F17.210 Nicotine dependence, cigarettes, uncomplicated; Z90.49 Acquired absence of other specified parts of digestive tract; Z90.89 Acquired absence of other organs; Z90.710 Acquired absence of both cervix and uterus; Z87.442 Personal history of urinary calculi
CPT/HCPCS: J1170; J2405; J7030

== ENCOUNTER 2018-06-04 20:07 | Emergency (ER) | payer SELFPAY ==
[2006-10-27 23:25] VITALS: BP 121/83
[~2018-06-04] VITALS: Ht 170.2 cm; Wt 102.3 kg
[~2018-06-04 20:07] MED LIST changes: +NORCO2.5 PO
[2018-06-04 20:25] VITALS: TEMP 99.8
[2018-06-04 22:37] LABS: COLLECTION METHOD CATHETER
[2018-06-04 22:47] LABS: MUCOUS Present /lpf; PH 5 (5-8); SQUAMOUS EPITHELIAL 0-2 /hpf; URINE APPEARANCE Clear; URINE BACTERIA Rare /hpf; URINE BILIRUBIN Negative (NEGATIVE); URINE BLOOD 2+ (NEGATIVE); URINE COLOR Amber; URINE GLUCOSE Negative (NEGATIVE); URINE KETONE Negative (NEGATIVE); URINE LEUKOCYTE ESTERASE Negative (NEGATIVE); URINE NITRATE Positive (NEGATIVE); URINE PROTEIN(semi-quant) 1+ (NEGATIVE); URINE RBC 20-50 /hpf; URINE UROBILINOGEN >=4.0 mg/dL (NEGATIVE)
[2018-06-05] MEDS ORDERED: MACROBID 1100 MG/CAP PO ×2 (00:48)
[2018-06-05 00:49] VITALS: BP 137/98
[2018-06-05 02:59] VITALS: PULSE 124
[2018-06-10] MEDS ORDERED: PHENERGAN 25 TA25 MG PO (09:52)
[2018-06-10] MEDS ORDERED: CEFTIN 250250 MG/TAB PO (09:53)
[2018-06-10] MEDS ORDERED: DILAUDID 2MG TAB2 MG PO (09:55)
[2018-06-10] MEDS ORDERED: MIRAPEX0.5 MG PO (09:56)
[2018-06-10] MEDS ORDERED: NEURONTIN300 MG/CAP PO (09:56)
[2018-06-10] MEDS ORDERED: DESYREL 50MG50 MG PO (09:56)
[2018-06-10] MEDS ORDERED: DIFLUCAN150 MG PO (09:58)
== END 2018-06-05 02:59 | disposition home or self-care (01) ==
LOC: COL.ER 20:07
PROVIDERS: Emergency Medicine
DX: R33.9 Retention of urine, unspecified (principal); Z79.899 Other long term (current) drug therapy; Z87.442 Personal history of urinary calculi; Z90.49 Acquired absence of other specified parts of digestive tract; Z90.710 Acquired absence of both cervix and uterus
CPT/HCPCS: J1170; J2060; J2550

== ENCOUNTER 2018-07-01 19:04 | Emergency (ER) | payer OTHER ==
[2006-10-27 23:25] VITALS: BP 121/83
[~2018-07-01] VITALS: Ht 170.2 cm; Wt 103.6 kg
[~2018-07-01 19:04] MED LIST changes: +DILAUDID 2MG TAB2 MG PO
[2018-07-01 19:07] VITALS: TEMP 98.5
[2018-07-01] MEDS ORDERED: PHENERGAN 25 TA25 MG PO (19:09)
[2018-07-01 19:29] LABS: COLLECTION METHOD CLEAN CATCH
[2018-07-01] MEDS ORDERED: PERCOCET 325 MG1 TA3 PO (19:32)
[2018-07-01 19:35] LABS: BASO % 0.5 % (0.0-2.0); EOS # 0.1 (0.0-0.7); EOS % 1.4 % (0-4.0); GRAN % 46.7 % (42.2-75.2); HEMOGLOBIN 10.7 g/dl (12.5-16.0); LYMPH # 3.9 (1.2-3.4); LYMPH % 44.6 % (20.0-51.0); MEAN CELL VOLUME 77 fl (80.0-100.0); MEAN CORPUSCULAR HEMOGLOBIN 24 pg (27.0-31.0); MEAN CORPUSCULAR HGB CONC 31 g/dl (33.0-37.0); MEAN PLATELET VOLUME 9.4 fl (7.4-10.4); MONO # 0.5 (0.1-0.6); MONO % 6.2 % (1.7-9.3); PLATELET COUNT 318 K/mm3 (130-400); RED BLOOD COUNT 4.55 M/mm3 (4.10-5.30); REDCELL DISTRIBUTION WIDTH-CV 16.7 % (11.5-14.5)
[2018-07-01 19:38] LABS: MUCOUS Present /lpf; PH 5 (5-8); SQUAMOUS EPITHELIAL 0-2 /hpf; URINE APPEARANCE Clear; URINE BACTERIA None Seen /hpf; URINE BILIRUBIN Negative (NEGATIVE); URINE BLOOD 3+ (NEGATIVE); URINE COLOR Amber; URINE GLUCOSE Negative (NEGATIVE); URINE KETONE Negative (NEGATIVE); URINE LEUKOCYTE ESTERASE Negative (NEGATIVE); URINE NITRATE Positive (NEGATIVE); URINE PROTEIN(semi-quant) Negative (NEGATIVE); URINE RBC >50 /hpf; URINE UROBILINOGEN >=4.0 mg/dL (NEGATIVE)
[2018-07-01 19:45] LABS: CALCIUM 9.1 mg/dL (8.4-10.2); CREATININE, serum 0.7 (0.52-1.25); POTASSIUM 3.8 mmol/L (3.4-5.0)
[2018-07-01 19:55] LABS: C-REACTIVE PROTEIN 0.5 mg/dL (0.0-0.9)
[2018-07-01 21:22] VITALS: BP 148/90; PULSE 99
== END 2018-07-01 21:25 | disposition home or self-care (01) ==
LOC: COL.ER 19:04
PROVIDERS: Emergency Medicine
DX: N23 Unspecified renal colic (principal); N20.1 Calculus of ureter; Z87.442 Personal history of urinary calculi
CPT/HCPCS: J1170; J2550; J7030

== ENCOUNTER 2018-07-20 18:54 | Emergency (ER) | payer OTHER ==
[2006-10-27 23:25] VITALS: BP 121/83
[~2018-07-20] VITALS: Ht 170.2 cm; Wt 103.6 kg
[~2018-07-20 18:54] MED LIST changes: +FLEXERIL 1010 MG/TAB PO; +PERCOCET 325 MG1 TA3 PO
[2018-07-20 19:03] VITALS: TEMP 98.2
[2018-07-20 19:46] LABS: COLLECTION METHOD CLEAN CATCH
[2018-07-20 20:06] LABS: MUCOUS Present /lpf; PH 5 (5-8); URINE APPEARANCE Hazy; URINE BACTERIA None Seen /hpf; URINE BILIRUBIN Negative (NEGATIVE); URINE BLOOD 2+ (NEGATIVE); URINE CALCIUM OXALATE CRYSTAL Present /hpf; URINE COLOR Amber; URINE GLUCOSE Negative (NEGATIVE); URINE KETONE Negative (NEGATIVE); URINE LEUKOCYTE ESTERASE Negative (NEGATIVE); URINE NITRATE Positive (NEGATIVE); URINE PROTEIN(semi-quant) Negative (NEGATIVE); URINE RBC >50 /hpf; URINE UROBILINOGEN >=4.0 mg/dL (NEGATIVE)
[2018-07-20] MEDS ORDERED: NORCO 325 MG-51 TAB PO (20:54)
[2018-07-20 21:05] VITALS: BP 135/90; PULSE 88
== END 2018-07-20 21:18 | disposition home or self-care (01) ==
LOC: COL.ER 18:54
PROVIDERS: Nurse Practitioner
DX: R10.31 Right lower quadrant pain (principal); Z87.442 Personal history of urinary calculi; Z98.84 Bariatric surgery status; Z90.49 Acquired absence of other specified parts of digestive tract; Z90.710 Acquired absence of both cervix and uterus
CPT/HCPCS: J1170; J2550

== ENCOUNTER 2018-07-30 20:51 | Emergency (ER) | payer OTHER ==
[2006-10-27 23:25] VITALS: BP 121/83
[~2018-07-30] VITALS: Ht 170.2 cm; Wt 102.3 kg
[2018-07-30 21:02] VITALS: TEMP 99.4
[2018-07-30 21:31] LABS: COLLECTION METHOD CLEAN CATCH
[2018-07-30 22:04] LABS: MUCOUS Present /lpf; PH 5 (5-8); URINE APPEARANCE Cloudy; URINE BACTERIA None Seen /hpf; URINE BILIRUBIN Negative (NEGATIVE); URINE BLOOD 3+ (NEGATIVE); URINE CALCIUM OXALATE CRYSTAL Present /hpf; URINE COLOR Yellow; URINE GLUCOSE Negative (NEGATIVE); URINE KETONE Negative (NEGATIVE); URINE LEUKOCYTE ESTERASE Negative (NEGATIVE); URINE NITRATE Negative (NEGATIVE); URINE PROTEIN(semi-quant) Negative (NEGATIVE); URINE RBC >50 /hpf; URINE WBC None Seen /hpf
[2018-07-30 22:54] VITALS: BP 132/89; PULSE 97
[2018-07-30] MEDS ORDERED: PHENERGAN 25 TA25 MG PO (23:02)
[2018-07-30] MEDS ORDERED: NORCO 325 MG-51 TAB PO (23:02)
== END 2018-07-30 23:27 | disposition home or self-care (01) ==
LOC: COL.ER 20:51
PROVIDERS: Emergency Medicine
DX: R10.9 Unspecified abdominal pain (principal); M79.7 Fibromyalgia; Z98.84 Bariatric surgery status; Z87.442 Personal history of urinary calculi
CPT/HCPCS: J1170; J2550; J7030

== ENCOUNTER 2018-08-04 11:16 | Emergency (ER) | payer SELFPAY ==
[2006-10-27 23:25] VITALS: BP 121/83
[~2018-08-04] VITALS: Ht 170.2 cm; Wt 103.6 kg
[2018-08-04 11:20] VITALS: TEMP 99.3
[2018-08-04 11:51] LABS: COLLECTION METHOD CLEAN CATCH
[2018-08-04 12:02] LABS: MUCOUS Present /lpf; PH 5 (5-8); URINE APPEARANCE Clear; URINE BACTERIA None Seen /hpf; URINE BILIRUBIN Negative (NEGATIVE); URINE BLOOD 3+ (NEGATIVE); URINE COLOR Red; URINE GLUCOSE Negative (NEGATIVE); URINE KETONE Negative (NEGATIVE); URINE LEUKOCYTE ESTERASE Negative (NEGATIVE); URINE NITRATE Positive (NEGATIVE); URINE PROTEIN(semi-quant) 1+ (NEGATIVE); URINE RBC >50 /hpf; URINE UROBILINOGEN >=4.0 mg/dL (NEGATIVE)
[2018-08-04] MEDS ORDERED: NORCO 325 MG-51 TAB PO (12:27)
[2018-08-04] MEDS ORDERED: PHENERGAN12.5 MG/SU RC (12:27)
[2018-08-04 14:15] VITALS: BP 130/92; PULSE 92
[2018-08-05] MEDS ORDERED: OMNICEF 300MG300 MG PO (01:50)
== END 2018-08-04 14:22 | disposition home or self-care (01) ==
LOC: COL.ER 11:16
PROVIDERS: Physician Assistant
DX: N23 Unspecified renal colic (principal); M79.7 Fibromyalgia; Z87.442 Personal history of urinary calculi; Z98.84 Bariatric surgery status; Z90.710 Acquired absence of both cervix and uterus; Z90.49 Acquired absence of other specified parts of digestive tract
CPT/HCPCS: J1170; J2550; J7030; J7040

== ENCOUNTER 2018-08-04 23:30 | Emergency (ER) | payer SELFPAY ==
[2006-10-27 23:25] VITALS: BP 121/83
[~2018-08-04] VITALS: Ht 170.2 cm; Wt 103.6 kg
[~2018-08-04 23:30] MED LIST changes: +PHENERGAN12.5 MG/SU RC
[2018-08-04 23:35] VITALS: BP 130/89; TEMP 99.2
[2018-08-05] MEDS ORDERED: OMNICEF 300MG300 MG PO (01:50)
[2018-08-05 02:15] VITALS: PULSE 93
== END 2018-08-05 02:18 | disposition home or self-care (01) ==
LOC: COL.ER 23:30
DX: R10.9 Unspecified abdominal pain (principal); Z87.442 Personal history of urinary calculi
CPT/HCPCS: J1170; J2550

== ENCOUNTER 2018-08-26 21:17 | Emergency (ER) | payer SELFPAY ==
[2006-10-27 23:25] VITALS: BP 121/83
[~2018-08-26] VITALS: Ht 170.2 cm; Wt 100.9 kg
[2018-08-26 21:20] VITALS: BP 141/81; TEMP 98.3
[2018-08-26 22:18] LABS: COLLECTION METHOD CLEAN CATCH
[2018-08-26 22:49] LABS: MUCOUS Present /lpf; PH 5 (5-8); URINE APPEARANCE Hazy; URINE BACTERIA Rare /hpf; URINE BILIRUBIN Negative (NEGATIVE); URINE BLOOD 3+ (NEGATIVE); URINE COLOR Red; URINE GLUCOSE Negative (NEGATIVE); URINE KETONE Negative (NEGATIVE); URINE LEUKOCYTE ESTERASE Negative (NEGATIVE); URINE NITRATE Positive (NEGATIVE); URINE PROTEIN(semi-quant) 2+ (NEGATIVE); URINE RBC >50 /hpf; URINE UROBILINOGEN >=4.0 mg/dL (NEGATIVE)
[2018-08-27] MEDS ORDERED: CEPHALEXIN500 M1 PO
[2018-08-27 00:27] VITALS: PULSE 89
== END 2018-08-27 00:27 | disposition home or self-care (01) ==
LOC: COL.ER 21:17
PROVIDERS: Physician Assistant
DX: R10.9 Unspecified abdominal pain (principal); R31.9 Hematuria, unspecified; M79.7 Fibromyalgia; Z98.84 Bariatric surgery status; Z90.710 Acquired absence of both cervix and uterus; Z87.442 Personal history of urinary calculi
CPT/HCPCS: J1170

== ENCOUNTER 2018-09-01 18:29 | Emergency (ER) | payer SELFPAY ==
[2006-10-27 23:25] VITALS: BP 121/83
[~2018-09-01] VITALS: Ht 170.2 cm; Wt 100.0 kg
[2018-09-01 18:34] VITALS: BP 141/92; TEMP 98.7
[2018-09-01 18:50] LABS: COLLECTION METHOD CLEAN CATCH
[2018-09-01 19:03] LABS: MUCOUS Present /lpf; PH 5 (5-8); URINE APPEARANCE Hazy; URINE BACTERIA Rare /hpf; URINE BILIRUBIN Negative (NEGATIVE); URINE BLOOD 3+ (NEGATIVE); URINE COLOR Red; URINE GLUCOSE 1+ (NEGATIVE); URINE KETONE Negative (NEGATIVE); URINE LEUKOCYTE ESTERASE Negative (NEGATIVE); URINE NITRATE Positive (NEGATIVE); URINE PROTEIN(semi-quant) 2+ (NEGATIVE); URINE RBC >50 /hpf; URINE UROBILINOGEN >=4.0 mg/dL (NEGATIVE)
[2018-09-01 20:01] VITALS: PULSE 92
== END 2018-09-01 20:02 | disposition home or self-care (01) ==
LOC: COL.ER 18:29
PROVIDERS: Emergency Medicine
DX: R10.9 Unspecified abdominal pain (principal); Z90.49 Acquired absence of other specified parts of digestive tract; Z98.84 Bariatric surgery status; Z90.710 Acquired absence of both cervix and uterus; Z87.442 Personal history of urinary calculi; Z98.890 Other specified postprocedural states
CPT/HCPCS: J1170; J2550

== ENCOUNTER 2018-09-24 22:32 | Emergency (ER) | payer SELFPAY ==
[2006-10-27 23:25] VITALS: BP 121/83
[~2018-09-24] VITALS: Ht 170.2 cm; Wt 97.7 kg
[2018-09-24 22:45] VITALS: TEMP 98.8
[2018-09-24 23:05] LABS: COLLECTION METHOD CLEAN CATCH
[2018-09-24 23:12] LABS: MUCOUS Present /lpf; PH 5 (5-8); SQUAMOUS EPITHELIAL 20-50 /hpf; URINE APPEARANCE Hazy; URINE BACTERIA None Seen /hpf; URINE BILIRUBIN Negative (NEGATIVE); URINE BLOOD 3+ (NEGATIVE); URINE COLOR Amber; URINE GLUCOSE Negative (NEGATIVE); URINE KETONE Negative (NEGATIVE); URINE LEUKOCYTE ESTERASE Negative (NEGATIVE); URINE NITRATE Negative (NEGATIVE); URINE PROTEIN(semi-quant) 1+ (NEGATIVE); URINE RBC >50 /hpf
[2018-09-24 23:48] LABS: BASO % 0.5 % (0.0-2.0); EOS # 0.1 (0.0-0.7); EOS % 1.6 % (0-4.0); GRAN % 51.8 % (42.2-75.2); HEMATOCRIT 33.9 % (37.0-47.0); HEMOGLOBIN 10.3 g/dl (12.5-16.0); LYMPH # 2.9 (1.2-3.4); LYMPH % 37.7 % (20.0-51.0); MEAN CELL VOLUME 74 fl (80.0-100.0); MEAN CORPUSCULAR HEMOGLOBIN 22 pg (27.0-31.0); MEAN CORPUSCULAR HGB CONC 30 g/dl (33.0-37.0); MEAN PLATELET VOLUME 9.2 fl (7.4-10.4); MONO # 0.6 (0.1-0.6); PLATELET COUNT 333 K/mm3 (130-400); RED BLOOD COUNT 4.59 M/mm3 (4.10-5.30); REDCELL DISTRIBUTION WIDTH-CV 16.6 % (11.5-14.5)
[2018-09-24] MEDS ORDERED: AMOXICILLIN875 MG PO (23:57)
[2018-09-24 23:58] LABS: ALBUMIN 4.2 gm/dL (3.5-5.0); BILIRUBIN,TOTAL 0.4 mg/dL (0.0-1.0); CALCIUM 9.3 mg/dL (8.4-10.2); CREATININE, serum 0.91 (0.52-1.25); POTASSIUM 3.6 mmol/L (3.4-5.0); TOTAL PROTEIN 7.4 gm/dL (6.4-8.2)
[2018-09-25 02:30] VITALS: BP 137/69; PULSE 94
== END 2018-09-25 02:30 | disposition home or self-care (01) ==
LOC: COL.ER 22:32
PROVIDERS: Emergency Medicine
DX: R10.9 Unspecified abdominal pain (principal); R05 Cough; K08.89 Other specified disorders of teeth and supporting structures; Z90.710 Acquired absence of both cervix and uterus; F17.210 Nicotine dependence, cigarettes, uncomplicated; Z87.442 Personal history of urinary calculi
CPT/HCPCS: J2930; J7030; Q9967

== ENCOUNTER 2018-10-19 17:51 | Emergency (ER) | payer MEDICAID ==
[2006-10-27 23:25] VITALS: BP 121/83
[~2018-10-19] VITALS: Ht 170.2 cm; Wt 94.5 kg
[2018-10-19 17:55] VITALS: BP 140/78; TEMP 99
[2018-10-19 18:11] LABS: COLLECTION METHOD CLEAN CATCH
[2018-10-19 18:40] LABS: MUCOUS Present /lpf; PH 5 (5-8); URINE APPEARANCE Hazy; URINE BACTERIA None Seen /hpf; URINE BILIRUBIN Negative (NEGATIVE); URINE BLOOD 3+ (NEGATIVE); URINE COLOR Yellow; URINE GLUCOSE Negative (NEGATIVE); URINE KETONE Negative (NEGATIVE); URINE LEUKOCYTE ESTERASE Negative (NEGATIVE); URINE NITRATE Negative (NEGATIVE); URINE PROTEIN(semi-quant) Negative (NEGATIVE); URINE RBC >50 /hpf
[2018-10-19] MEDS ORDERED: PHENERGAN 25 TA25 MG PO (18:45)
[2018-10-19 18:54] VITALS: PULSE 91
== END 2018-10-19 18:55 | disposition home or self-care (01) ==
LOC: COL.ER 17:51
PROVIDERS: Emergency Medicine
DX: R10.9 Unspecified abdominal pain (principal); R31.9 Hematuria, unspecified; F32.9 Major depressive disorder, single episode, unspecified; Z87.442 Personal history of urinary calculi; K31.84 Gastroparesis
CPT/HCPCS: J1170; J2550

== ENCOUNTER 2018-10-24 18:59 | Emergency (ER) | payer MEDICAID ==
[2006-10-27 23:25] VITALS: BP 121/83
[~2018-10-24] VITALS: Ht 170.2 cm; Wt 94.5 kg
[2018-10-24 19:05] VITALS: BP 120/70; PULSE 87; TEMP 98.1
[2018-10-24 19:48] LABS: COLLECTION METHOD CLEAN CATCH
[2018-10-24 19:52] LABS: BASO % 0.5 % (0.0-2.0); EOS # 0.1 (0.0-0.7); EOS % 1.2 % (0-4.0); GRAN # 3.6 (1.4-6.5); GRAN % 42.5 % (42.2-75.2); HEMOGLOBIN 10.5 g/dl (12.5-16.0); LYMPH # 4.1 (1.2-3.4); LYMPH % 47.7 % (20.0-51.0); MEAN CELL VOLUME 73 fl (80.0-100.0); MEAN CORPUSCULAR HEMOGLOBIN 22 pg (27.0-31.0); MEAN CORPUSCULAR HGB CONC 30 g/dl (33.0-37.0); MEAN PLATELET VOLUME 9.8 fl (7.4-10.4); MONO # 0.7 (0.1-0.6); MONO % 7.7 % (1.7-9.3); PLATELET COUNT 321 K/mm3 (130-400); RED BLOOD COUNT 4.72 M/mm3 (4.10-5.30); REDCELL DISTRIBUTION WIDTH-CV 16.2 % (11.5-14.5)
[2018-10-24 20:01] LABS: BUDDING YEAST Present /hpf; MUCOUS Present /lpf; PH 5 (5-8); SQUAMOUS EPITHELIAL 0-2 /hpf; URINE APPEARANCE Cloudy; URINE BACTERIA None Seen /hpf; URINE BILIRUBIN Negative (NEGATIVE); URINE BLOOD 2+ (NEGATIVE); URINE COLOR Amber; URINE GLUCOSE Negative (NEGATIVE); URINE KETONE Trace (NEGATIVE); URINE LEUKOCYTE ESTERASE Negative (NEGATIVE); URINE NITRATE Negative (NEGATIVE); URINE PROTEIN(semi-quant) 1+ (NEGATIVE); URINE RBC >50 /hpf
[2018-10-24 20:09] LABS: ALANINE AMINOTRANSFERASE 10 U/L (9-52); ALBUMIN 4.2 gm/dL (3.5-5.0); ALKALINE PHOSPHATASE 135 U/L (50-136); ANION GAP 11 mmol/L (7-16); AST,SGOT 40 U/L (15-37); BILIRUBIN,TOTAL 0.4 mg/dL (0.0-1.0); BLOOD UREA NITROGEN 17 mg/dL (7-17); CALCIUM 9.2 mg/dL (8.4-10.2); CARBON DIOXIDE 24 mmol/L (22-30); CHLORIDE 104 mmol/L (98-107); CREATININE, serum 0.85 (0.52-1.25); GLUCOSE 105 mg/dL (74-106); LIPASE 153 U/L (23-300); POTASSIUM 3.8 mmol/L (3.4-5.0); SODIUM 139 mmol/L (137-145); TOTAL PROTEIN 7.2 gm/dL (6.4-8.2)
[2018-10-24 20:11] LABS: C-REACTIVE PROTEIN < 0.5 mg/dL (0.0-0.9); HEMATOCRIT 34.5 % (37.0-47.0)
[2018-10-24] MEDS ORDERED: OMNICEF 300MG300 MG PO (20:29)
== END 2018-10-24 20:56 | disposition home or self-care (01) ==
LOC: COL.ER 18:59
PROVIDERS: Emergency Medicine
DX: N23 Unspecified renal colic (principal); Z90.49 Acquired absence of other specified parts of digestive tract; Z90.710 Acquired absence of both cervix and uterus; Z87.442 Personal history of urinary calculi
CPT/HCPCS: J1170; J2405; J7030

== ENCOUNTER 2018-10-27 21:39 | Emergency (ER) | payer MEDICAID ==
[2006-10-27 23:25] VITALS: BP 121/83
[~2018-10-27] VITALS: Ht 170.2 cm; Wt 94.5 kg
[2018-10-27 21:41] VITALS: TEMP 99.9
[2018-10-27 22:06] LABS: COLLECTION METHOD CLEAN CATCH
[2018-10-27 22:21] LABS: MUCOUS Present /lpf; PH 5 (5-8); SQUAMOUS EPITHELIAL 0-2 /hpf; URINE APPEARANCE Clear; URINE BACTERIA None Seen /hpf; URINE BILIRUBIN Negative (NEGATIVE); URINE BLOOD 3+ (NEGATIVE); URINE COLOR Amber; URINE GLUCOSE Negative (NEGATIVE); URINE KETONE Negative (NEGATIVE); URINE LEUKOCYTE ESTERASE Negative (NEGATIVE); URINE NITRATE Positive (NEGATIVE); URINE PROTEIN(semi-quant) 2+ (NEGATIVE); URINE RBC >50 /hpf; URINE UROBILINOGEN >=4.0 mg/dL (NEGATIVE)
[2018-10-27 23:07] VITALS: BP 118/89; PULSE 104
== END 2018-10-27 23:09 | disposition home or self-care (01) ==
LOC: COL.ER 21:39
PROVIDERS: Nurse Practitioner
DX: R10.9 Unspecified abdominal pain (principal); Z98.84 Bariatric surgery status; Z90.49 Acquired absence of other specified parts of digestive tract; Z87.442 Personal history of urinary calculi
CPT/HCPCS: J1170

== ENCOUNTER 2018-11-11 21:29 | Emergency (ER) | payer MEDICAID ==
[~2018-11-11] VITALS: Ht 172.7 cm; Wt 94.5 kg
[2018-11-11 21:35] VITALS: BP 127/86; TEMP 99.6
[2018-11-11 22:15] LABS: COLLECTION METHOD CLEAN CATCH
[2018-11-11 22:24] LABS: MUCOUS Present /lpf; PH 5 (5-8); URINE APPEARANCE Hazy; URINE BACTERIA None Seen /hpf; URINE BILIRUBIN Negative (NEGATIVE); URINE BLOOD 3+ (NEGATIVE); URINE COLOR Yellow; URINE GLUCOSE Negative (NEGATIVE); URINE KETONE Negative (NEGATIVE); URINE LEUKOCYTE ESTERASE 1+ (NEGATIVE); URINE NITRATE Negative (NEGATIVE); URINE PROTEIN(semi-quant) Negative (NEGATIVE); URINE RBC >50 /hpf; URINE UROBILINOGEN Negative (NEGATIVE)
[2018-11-11 22:39] LABS: BASO % 0.3 % (0.0-2.0); EOS # 0.1 (0.0-0.7); EOS % 1.2 % (0-4.0); GRAN # 4.7 (1.4-6.5); GRAN % 52.1 % (42.2-75.2); HEMOGLOBIN 10.7 g/dl (12.5-16.0); LYMPH # 3.5 (1.2-3.4); LYMPH % 38.5 % (20.0-51.0); MEAN CELL VOLUME 74 fl (80.0-100.0); MEAN CORPUSCULAR HEMOGLOBIN 22 pg (27.0-31.0); MEAN CORPUSCULAR HGB CONC 30 g/dl (33.0-37.0); MEAN PLATELET VOLUME 9.7 fl (7.4-10.4); MONO # 0.7 (0.1-0.6); MONO % 7.6 % (1.7-9.3); PLATELET COUNT 351 K/mm3 (130-400); RED BLOOD COUNT 4.83 M/mm3 (4.10-5.30); REDCELL DISTRIBUTION WIDTH-CV 17.3 % (11.5-14.5)
[2018-11-11 22:42] LABS: HEMATOCRIT 35.5 % (37.0-47.0)
[2018-11-11 22:51] LABS: ALANINE AMINOTRANSFERASE 15 U/L (9-52); ALBUMIN 4.2 gm/dL (3.5-5.0); ALKALINE PHOSPHATASE 118 U/L (50-136); ANION GAP 12 mmol/L (7-16); AST,SGOT 32 U/L (15-37); BILIRUBIN,TOTAL 0.3 mg/dL (0.0-1.0); BLOOD UREA NITROGEN 17 mg/dL (7-17); C-REACTIVE PROTEIN < 0.5 mg/dL (0.0-0.9); CALCIUM 9.4 mg/dL (8.4-10.2); CARBON DIOXIDE 26 mmol/L (22-30); CHLORIDE 103 mmol/L (98-107); CREATININE, serum 0.91 (0.52-1.25); GLUCOSE 98 mg/dL (74-106); LIPASE 65 U/L (23-300); POTASSIUM 4.1 mmol/L (3.4-5.0); SODIUM 141 mmol/L (137-145); TOTAL PROTEIN 7.4 gm/dL (6.4-8.2)
[2018-11-12 00:10] VITALS: PULSE 87
== END 2018-11-12 00:47 | disposition home or self-care (01) ==
LOC: COL.ER 21:29
PROVIDERS: Family Medicine
DX: N23 Unspecified renal colic (principal); F17.210 Nicotine dependence, cigarettes, uncomplicated; Z87.442 Personal history of urinary calculi
CPT/HCPCS: J1170; J2405; J7030

== ENCOUNTER 2018-11-14 21:49 | Emergency (ER) | payer MEDICAID ==
[2006-10-27 23:25] VITALS: BP 121/83
[~2018-11-14] VITALS: Ht 170.2 cm; Wt 94.5 kg
[2018-11-14 21:56] VITALS: BP 126/97; TEMP 97.9
[2018-11-14 22:11] LABS: COLLECTION METHOD CLEAN CATCH
[2018-11-14 22:23] LABS: MUCOUS Present /lpf; PH 5 (5-8); SQUAMOUS EPITHELIAL 20-50 /hpf; URINE APPEARANCE Cloudy; URINE BACTERIA None Seen /hpf; URINE BILIRUBIN Negative (NEGATIVE); URINE BLOOD 3+ (NEGATIVE); URINE COLOR Amber; URINE GLUCOSE Negative (NEGATIVE); URINE KETONE Negative (NEGATIVE); URINE LEUKOCYTE ESTERASE 2+ (NEGATIVE); URINE NITRATE Negative (NEGATIVE); URINE PROTEIN(semi-quant) 1+ (NEGATIVE); URINE RBC >50 /hpf
[2018-11-14] MEDS ORDERED: DESYREL 50MG50 MG PO (22:36)
[2018-11-14 22:43] LABS: BASO % 0.4 % (0.0-2.0); EOS # 0.1 (0.0-0.7); EOS % 1.2 % (0-4.0); GRAN # 2.8 (1.4-6.5); GRAN % 41.6 % (42.2-75.2); HEMOGLOBIN 10.3 g/dl (12.5-16.0); LYMPH # 3.3 (1.2-3.4); LYMPH % 48.8 % (20.0-51.0); MEAN CELL VOLUME 73 fl (80.0-100.0); MEAN CORPUSCULAR HEMOGLOBIN 22 pg (27.0-31.0); MEAN CORPUSCULAR HGB CONC 30 g/dl (33.0-37.0); MEAN PLATELET VOLUME 9.3 fl (7.4-10.4); MONO # 0.5 (0.1-0.6); MONO % 7.7 % (1.7-9.3); PLATELET COUNT 320 K/mm3 (130-400); RED BLOOD COUNT 4.64 M/mm3 (4.10-5.30); REDCELL DISTRIBUTION WIDTH-CV 17.4 % (11.5-14.5)
[2018-11-14 22:52] LABS: CALCIUM 8.9 mg/dL (8.4-10.2); CREATININE, serum 0.88 (0.52-1.25); POTASSIUM 3.7 mmol/L (3.4-5.0)
[2018-11-14 23:05] LABS: COLLECTION METHOD CLEAN CATCH
[2018-11-14 23:12] LABS: MUCOUS Present /lpf; PH 5 (5-8); SQUAMOUS EPITHELIAL 0-2 /hpf; URINE APPEARANCE Hazy; URINE BACTERIA None Seen /hpf; URINE BILIRUBIN Negative (NEGATIVE); URINE BLOOD 3+ (NEGATIVE); URINE COLOR Yellow; URINE GLUCOSE Negative (NEGATIVE); URINE KETONE Negative (NEGATIVE); URINE LEUKOCYTE ESTERASE Negative (NEGATIVE); URINE NITRATE Negative (NEGATIVE); URINE PROTEIN(semi-quant) 1+ (NEGATIVE); URINE RBC >50 /hpf
[2018-11-14] MEDS ORDERED: DIFLUCAN150 MG PO (23:40)
[2018-11-14] MEDS ORDERED: MACROBID 1100 MG/CAP PO (23:40)
[2018-11-14 23:48] VITALS: PULSE 95
== END 2018-11-14 23:50 | disposition home or self-care (01) ==
LOC: COL.ER 21:49
PROVIDERS: Physician Assistant
DX: N39.0 Urinary tract infection, site not specified (principal); R79.1 Abnormal coagulation profile; Z90.49 Acquired absence of other specified parts of digestive tract; Z90.89 Acquired absence of other organs; Z87.442 Personal history of urinary calculi
CPT/HCPCS: J1170; J1650; J2550

== ENCOUNTER 2018-11-26 20:16 | Emergency (ER) | payer MEDICAID ==
[2006-10-27 23:25] VITALS: BP 121/83
[~2018-11-26] VITALS: Ht 170.2 cm; Wt 94.5 kg
[2018-11-26 20:38] VITALS: BP 131/87; PULSE 107; TEMP 99.3
[2018-11-26 21:22] LABS: COLLECTION METHOD CLEAN CATCH
[2018-11-26 21:40] LABS: MUCOUS Present /lpf; PH 5 (5-8); URINE APPEARANCE Cloudy; URINE BACTERIA Rare /hpf; URINE BILIRUBIN Negative (NEGATIVE); URINE BLOOD 3+ (NEGATIVE); URINE COLOR Red; URINE GLUCOSE Negative (NEGATIVE); URINE KETONE Negative (NEGATIVE); URINE LEUKOCYTE ESTERASE Negative (NEGATIVE); URINE NITRATE Positive (NEGATIVE); URINE PROTEIN(semi-quant) 1+ (NEGATIVE); URINE RBC >50 /hpf; URINE UROBILINOGEN >=4.0 mg/dL (NEGATIVE); URINE WBC >50 /hpf
[2018-11-26 22:59] LABS: BASO # 0.1 (0.0-0.2); BASO % 0.5 % (0.0-2.0); EOS # 0.1 (0.0-0.7); EOS % 1.2 % (0-4.0); GRAN # 5.1 (1.4-6.5); GRAN % 51.1 % (42.2-75.2); HEMATOCRIT 36.4 % (37.0-47.0); LYMPH # 3.9 (1.2-3.4); LYMPH % 38.6 % (20.0-51.0); MEAN CELL VOLUME 74 fl (80.0-100.0); MEAN CORPUSCULAR HEMOGLOBIN 22 pg (27.0-31.0); MEAN CORPUSCULAR HGB CONC 30 g/dl (33.0-37.0); MEAN PLATELET VOLUME 10.1 fl (7.4-10.4); MONO # 0.8 (0.1-0.6); MONO % 8.3 % (1.7-9.3); PLATELET COUNT 329 K/mm3 (130-400); RED BLOOD COUNT 4.93 M/mm3 (4.10-5.30); REDCELL DISTRIBUTION WIDTH-CV 17.4 % (11.5-14.5)
[2018-11-26 23:08] LABS: ALANINE AMINOTRANSFERASE < 6 U/L (9-52); ALBUMIN 4.6 gm/dL (3.5-5.0); ALKALINE PHOSPHATASE 112 U/L (50-136); ANION GAP 13 mmol/L (7-16); AST,SGOT 28 U/L (15-37); BILIRUBIN,TOTAL 0.4 mg/dL (0.0-1.0); BLOOD UREA NITROGEN 15 mg/dL (7-17); CALCIUM 9.5 mg/dL (8.4-10.2); CARBON DIOXIDE 25 mmol/L (22-30); CHLORIDE 103 mmol/L (98-107); CREATININE, serum 0.84 (0.52-1.25); GLUCOSE 82 mg/dL (74-106); POTASSIUM 3.6 mmol/L (3.4-5.0); SODIUM 140 mmol/L (137-145); TOTAL PROTEIN 7.9 gm/dL (6.4-8.2)
[2018-11-26 23:12] LABS: COLLECTION METHOD CATHETER
[2018-11-26 23:18] LABS: MUCOUS Present /lpf; PH 5 (5-8); SQUAMOUS EPITHELIAL 0-2 /hpf; URINE APPEARANCE Clear; URINE BACTERIA None Seen /hpf; URINE BILIRUBIN Negative (NEGATIVE); URINE BLOOD Negative (NEGATIVE); URINE COLOR Amber; URINE GLUCOSE Negative (NEGATIVE); URINE KETONE Negative (NEGATIVE); URINE LEUKOCYTE ESTERASE Negative (NEGATIVE); URINE NITRATE Positive (NEGATIVE); URINE PROTEIN(semi-quant) Negative (NEGATIVE); URINE UROBILINOGEN >=4.0 mg/dL (NEGATIVE)
[2018-11-26] MEDS ORDERED: CEFTIN500 MG PO (23:32)
[2018-11-26] MEDS ORDERED: DIFLUCAN200 MG PO (23:32)
== END 2018-11-27 00:21 | disposition home or self-care (01) ==
LOC: COL.ER 20:16
PROVIDERS: Emergency Medicine
DX: N39.0 Urinary tract infection, site not specified (principal); E66.9 Obesity, unspecified; Z90.49 Acquired absence of other specified parts of digestive tract; Z90.89 Acquired absence of other organs; Z87.442 Personal history of urinary calculi
CPT/HCPCS: A4216; J0696; J1170; J2550; J7030

== ENCOUNTER 2018-12-04 12:11 | Emergency (ER) | payer MEDICAID ==
[2006-10-27 23:25] VITALS: BP 121/83
[~2018-12-04] VITALS: Ht 170.2 cm; Wt 94.5 kg
[2018-12-04 12:22] VITALS: TEMP 98.6
[2018-12-04 12:58] LABS: COLLECTION METHOD CLEAN CATCH
[2018-12-04 13:08] LABS: MUCOUS Present /lpf; PH 6 (5-8); SQUAMOUS EPITHELIAL 0-2 /hpf; URINE APPEARANCE Clear; URINE BACTERIA None Seen /hpf; URINE BILIRUBIN Negative (NEGATIVE); URINE BLOOD 3+ (NEGATIVE); URINE COLOR Amber; URINE GLUCOSE 1+ (NEGATIVE); URINE KETONE Trace (NEGATIVE); URINE LEUKOCYTE ESTERASE Negative (NEGATIVE); URINE NITRATE Positive (NEGATIVE); URINE PROTEIN(semi-quant) Negative (NEGATIVE); URINE RBC >50 /hpf
[2018-12-04 14:50] VITALS: BP 123/81
[2018-12-04 15:29] VITALS: PULSE 82
== END 2018-12-04 15:30 | disposition home or self-care (01) ==
LOC: COL.ER 12:11
PROVIDERS: Emergency Medicine
DX: N23 Unspecified renal colic (principal); R31.9 Hematuria, unspecified; F43.10 Post-traumatic stress disorder, unspecified; F32.9 Major depressive disorder, single episode, unspecified; Z98.84 Bariatric surgery status; Z87.442 Personal history of urinary calculi; Z90.710 Acquired absence of both cervix and uterus; Z90.49 Acquired absence of other specified parts of digestive tract; Z90.89 Acquired absence of other organs
CPT/HCPCS: J1170; J2405; J7030

== ENCOUNTER 2018-12-16 18:37 | Emergency (ER) | payer MEDICAID ==
[2006-10-27 23:25] VITALS: BP 121/83
[~2018-12-16] VITALS: Ht 170.2 cm; Wt 94.5 kg
[2018-12-16 18:42] VITALS: TEMP 100.1
[2018-12-16 19:41] LABS: COLLECTION METHOD CLEAN CATCH
[2018-12-16 19:56] LABS: MUCOUS Present /lpf; PH 5 (5-8); SQUAMOUS EPITHELIAL 0-2 /hpf; URINE APPEARANCE Clear; URINE BACTERIA None Seen /hpf; URINE BILIRUBIN Negative (NEGATIVE); URINE BLOOD 2+ (NEGATIVE); URINE COLOR Amber; URINE GLUCOSE Negative (NEGATIVE); URINE KETONE Negative (NEGATIVE); URINE LEUKOCYTE ESTERASE Negative (NEGATIVE); URINE NITRATE Positive (NEGATIVE); URINE PROTEIN(semi-quant) Negative (NEGATIVE); URINE RBC >50 /hpf; URINE UROBILINOGEN >=4.0 mg/dL (NEGATIVE)
[2018-12-16 20:02] LABS: BASO % 0.5 % (0.0-2.0); EOS # 0.1 (0.0-0.7); EOS % 1.1 % (0-4.0); GRAN # 3.8 (1.4-6.5); GRAN % 45.8 % (42.2-75.2); LYMPH # 3.7 (1.2-3.4); LYMPH % 45.4 % (20.0-51.0); MEAN CELL VOLUME 73 fl (80.0-100.0); MEAN CORPUSCULAR HEMOGLOBIN 22 pg (27.0-31.0); MEAN CORPUSCULAR HGB CONC 30 g/dl (33.0-37.0); MEAN PLATELET VOLUME 9.3 fl (7.4-10.4); MONO # 0.6 (0.1-0.6); MONO % 6.7 % (1.7-9.3); PLATELET COUNT 375 K/mm3 (130-400); RED BLOOD COUNT 4.98 M/mm3 (4.10-5.30); REDCELL DISTRIBUTION WIDTH-CV 17.4 % (11.5-14.5)
[2018-12-16 20:04] LABS: HEMATOCRIT 36.4 % (37.0-47.0)
[2018-12-16 20:16] LABS: ALBUMIN 4.5 gm/dL (3.5-5.0); BILIRUBIN,TOTAL 0.4 mg/dL (0.0-1.0); CALCIUM 9.1 mg/dL (8.4-10.2); CREATININE, serum 0.76 (0.52-1.25); POTASSIUM 3.6 mmol/L (3.4-5.0); TOTAL PROTEIN 7.8 gm/dL (6.4-8.2)
[2018-12-16] MEDS ORDERED: OMNICEF 300MG300 MG PO (21:15)
[2018-12-16 21:16] VITALS: BP 120/82; PULSE 90
[2018-12-16] MEDS ORDERED: ZOFRAN ODT4 MG PO (21:20)
[2018-12-16] MEDS ORDERED: DIFLUCAN150 MG PO (21:20)
== END 2018-12-16 21:52 | disposition home or self-care (01) ==
LOC: COL.ER 18:37
PROVIDERS: Physician Assistant
DX: N39.0 Urinary tract infection, site not specified (principal); F17.210 Nicotine dependence, cigarettes, uncomplicated; Z87.442 Personal history of urinary calculi; Z98.84 Bariatric surgery status
CPT/HCPCS: A4216; J0696; J1170; J2405; J7030

== ENCOUNTER 2019-01-04 16:56 | Emergency (ER) | payer MEDICAID ==
[2006-10-27 23:25] VITALS: BP 121/83
[~2019-01-04] VITALS: Ht 170.2 cm; Wt 93.2 kg
[2019-01-04 17:08] VITALS: TEMP 99.4
[2019-01-04 17:21] LABS: COLLECTION METHOD CLEAN CATCH
[2019-01-04 17:32] LABS: MUCOUS Present /lpf; PH 5 (5-8); SQUAMOUS EPITHELIAL 0-2 /hpf; URINE APPEARANCE Clear; URINE BACTERIA Rare /hpf; URINE BILIRUBIN Negative (NEGATIVE); URINE BLOOD 3+ (NEGATIVE); URINE COLOR Yellow; URINE GLUCOSE Negative (NEGATIVE); URINE KETONE Negative (NEGATIVE); URINE LEUKOCYTE ESTERASE 3+ (NEGATIVE); URINE NITRATE Negative (NEGATIVE); URINE PROTEIN(semi-quant) Negative (NEGATIVE); URINE RBC >50 /hpf
[2019-01-04 19:27] LABS: BASO % 0.4 % (0.0-2.0); EOS # 0.1 (0.0-0.7); EOS % 1.5 % (0-4.0); GRAN % 48.6 % (42.2-75.2); LYMPH # 3.5 (1.2-3.4); LYMPH % 42.5 % (20.0-51.0); MEAN CELL VOLUME 76 fl (80.0-100.0); MEAN CORPUSCULAR HEMOGLOBIN 23 pg (27.0-31.0); MEAN CORPUSCULAR HGB CONC 30 g/dl (33.0-37.0); MEAN PLATELET VOLUME 9.6 fl (7.4-10.4); MONO # 0.6 (0.1-0.6); MONO % 6.8 % (1.7-9.3); PLATELET COUNT 309 K/mm3 (130-400); RED BLOOD COUNT 4.37 M/mm3 (4.10-5.30); REDCELL DISTRIBUTION WIDTH-CV 17.5 % (11.5-14.5)
[2019-01-04 19:30] LABS: HEMATOCRIT 33.1 % (37.0-47.0)
[2019-01-04 19:35] LABS: ALBUMIN 4.1 gm/dL (3.5-5.0); BILIRUBIN,TOTAL 0.3 mg/dL (0.0-1.0); CALCIUM 8.6 mg/dL (8.4-10.2); CREATININE, serum 0.79 (0.52-1.25); POTASSIUM 3.9 mmol/L (3.4-5.0)
[2019-01-04] MEDS ORDERED: MACROBID 1100 MG/CAP PO (20:34)
[2019-01-04] MEDS ORDERED: DIFLUCAN 100MG100 MG PO (20:43)
[2019-01-04 20:56] VITALS: BP 130/80; PULSE 85
== END 2019-01-04 20:56 | disposition home or self-care (01) ==
LOC: COL.ER 16:56
PROVIDERS: Emergency Medicine; Family Medicine
DX: N39.0 Urinary tract infection, site not specified (principal); Z87.442 Personal history of urinary calculi
CPT/HCPCS: J1170; J2550

== ENCOUNTER 2019-01-12 19:30 | Emergency (ER) | payer MEDICAID ==
[2006-10-27 23:25] VITALS: BP 121/83
[~2019-01-12] VITALS: Ht 170.2 cm; Wt 91.8 kg
[2019-01-12 20:06] LABS: COLLECTION METHOD CLEAN CATCH
[2019-01-12 20:13] LABS: MUCOUS Present /lpf; PH 5 (5-8); URINE APPEARANCE Hazy; URINE BACTERIA None Seen /hpf; URINE BILIRUBIN Negative (NEGATIVE); URINE BLOOD 3+ (NEGATIVE); URINE COLOR Yellow; URINE GLUCOSE Negative (NEGATIVE); URINE KETONE Negative (NEGATIVE); URINE LEUKOCYTE ESTERASE 2+ (NEGATIVE); URINE NITRATE Negative (NEGATIVE); URINE PROTEIN(semi-quant) Negative (NEGATIVE); URINE RBC >50 /hpf; URINE UROBILINOGEN Negative (NEGATIVE)
[2019-01-12 21:10] LABS: BASO % 0.4 % (0.0-2.0); EOS # 0.1 (0.0-0.7); EOS % 1.4 % (0-4.0); GRAN # 3.2 (1.4-6.5); GRAN % 45.9 % (42.2-75.2); HEMOGLOBIN 10.5 g/dl (12.5-16.0); LYMPH # 3.1 (1.2-3.4); LYMPH % 44.7 % (20.0-51.0); MEAN CELL VOLUME 75 fl (80.0-100.0); MEAN CORPUSCULAR HEMOGLOBIN 23 pg (27.0-31.0); MEAN CORPUSCULAR HGB CONC 30 g/dl (33.0-37.0); MEAN PLATELET VOLUME 9.3 fl (7.4-10.4); MONO # 0.5 (0.1-0.6); MONO % 7.5 % (1.7-9.3); PLATELET COUNT 320 K/mm3 (130-400); REDCELL DISTRIBUTION WIDTH-CV 17.2 % (11.5-14.5)
[2019-01-12 21:12] LABS: HEMATOCRIT 34.5 % (37.0-47.0)
[2019-01-12 21:20] LABS: ALBUMIN 4.3 gm/dL (3.5-5.0); BILIRUBIN,TOTAL 0.3 mg/dL (0.0-1.0); CALCIUM 9.4 mg/dL (8.4-10.2); CREATININE, serum 0.85 (0.52-1.25); POTASSIUM 4.2 mmol/L (3.4-5.0); TOTAL PROTEIN 7.4 gm/dL (6.4-8.2)
[2019-01-12] MEDS ORDERED: CEFTIN 250250 MG/TAB PO (22:28)
[2019-01-12] MEDS ORDERED: DIFLUCAN150 MG PO (22:37)
[2019-01-12 22:57] VITALS: BP 146/86; PULSE 86; TEMP 98.2
== END 2019-01-12 23:02 | disposition home or self-care (01) ==
LOC: COL.ER 19:30
PROVIDERS: Nurse Practitioner
DX: N39.0 Urinary tract infection, site not specified (principal); F32.9 Major depressive disorder, single episode, unspecified; J45.909 Unspecified asthma, uncomplicated; F43.10 Post-traumatic stress disorder, unspecified; Z87.442 Personal history of urinary calculi; Z90.49 Acquired absence of other specified parts of digestive tract; Z90.710 Acquired absence of both cervix and uterus; Z98.890 Other specified postprocedural states
CPT/HCPCS: J1170; J2405; J7030

== ENCOUNTER 2019-01-28 19:35 | Emergency (ER) | payer MEDICAID ==
[2006-10-27 23:25] VITALS: BP 121/83
[~2019-01-28] VITALS: Ht 170.2 cm; Wt 91.4 kg
[2019-01-28 19:38] VITALS: TEMP 98
[2019-01-28 20:43] LABS: COLLECTION METHOD CLEAN CATCH
[2019-01-28 20:45] LABS: BASO % 0.3 % (0.0-2.0); EOS # 0.1 (0.0-0.7); EOS % 1.4 % (0-4.0); GRAN # 2.5 (1.4-6.5); GRAN % 39.6 % (42.2-75.2); HEMOGLOBIN 10.6 g/dl (12.5-16.0); LYMPH # 3.2 (1.2-3.4); LYMPH % 50.6 % (20.0-51.0); MEAN CELL VOLUME 74 fl (80.0-100.0); MEAN CORPUSCULAR HEMOGLOBIN 23 pg (27.0-31.0); MEAN CORPUSCULAR HGB CONC 31 g/dl (33.0-37.0); MEAN PLATELET VOLUME 9.3 fl (7.4-10.4); MONO # 0.5 (0.1-0.6); MONO % 7.9 % (1.7-9.3); PLATELET COUNT 319 K/mm3 (130-400); RED BLOOD COUNT 4.66 M/mm3 (4.10-5.30); REDCELL DISTRIBUTION WIDTH-CV 16.4 % (11.5-14.5)
[2019-01-28 20:46] LABS: HEMATOCRIT 34.6 % (37.0-47.0)
[2019-01-28 20:50] LABS: MUCOUS Present /lpf; PH 5 (5-8); URINE APPEARANCE Hazy; URINE BACTERIA Rare /hpf; URINE BILIRUBIN Negative (NEGATIVE); URINE BLOOD 2+ (NEGATIVE); URINE COLOR Yellow; URINE GLUCOSE Negative (NEGATIVE); URINE KETONE Negative (NEGATIVE); URINE LEUKOCYTE ESTERASE Trace (NEGATIVE); URINE NITRATE Negative (NEGATIVE); URINE PROTEIN(semi-quant) 1+ (NEGATIVE); URINE RBC >50 /hpf
[2019-01-28 20:58] LABS: ALANINE AMINOTRANSFERASE 15 U/L (9-52); ALBUMIN 4.4 gm/dL (3.5-5.0); ALKALINE PHOSPHATASE 110 U/L (50-136); ANION GAP 11 mmol/L (7-16); AST,SGOT 27 U/L (15-37); BILIRUBIN,TOTAL 0.3 mg/dL (0.0-1.0); BLOOD UREA NITROGEN 13 mg/dL (7-17); CALCIUM 9.7 mg/dL (8.4-10.2); CARBON DIOXIDE 25 mmol/L (22-30); CHLORIDE 103 mmol/L (98-107); CREATININE, serum 0.83 (0.52-1.25); GLUCOSE 105 mg/dL (74-106); LIPASE 78 U/L (23-300); POTASSIUM 3.9 mmol/L (3.4-5.0); SODIUM 138 mmol/L (137-145); TOTAL PROTEIN 7.5 gm/dL (6.4-8.2)
[2019-01-28 21:13] LABS: C-REACTIVE PROTEIN < 0.5 mg/dL (0.0-0.9)
[2019-01-28] MEDS ORDERED: CEFTIN500 MG PO (21:13)
[2019-01-28 22:05] VITALS: BP 150/80; PULSE 70
== END 2019-01-28 22:07 | disposition home or self-care (01) ==
LOC: COL.ER 19:35
PROVIDERS: Emergency Medicine
DX: N23 Unspecified renal colic (principal); Z90.49 Acquired absence of other specified parts of digestive tract; Z90.89 Acquired absence of other organs; Z90.710 Acquired absence of both cervix and uterus; Z98.84 Bariatric surgery status; Z87.442 Personal history of urinary calculi
CPT/HCPCS: J1170; J2405; J7030

== ENCOUNTER 2019-02-02 19:33 | Emergency (ER) | payer MEDICAID ==
[2006-10-27 23:25] VITALS: BP 121/83
[~2019-02-02] VITALS: Ht 170.2 cm; Wt 90.5 kg
[2019-02-02 19:38] VITALS: TEMP 99.4
[2019-02-02 20:04] LABS: COLLECTION METHOD CLEAN CATCH
[2019-02-02 20:14] LABS: MUCOUS Present /lpf; PH 5 (5-8); SQUAMOUS EPITHELIAL 0-2 /hpf; URINE APPEARANCE Hazy; URINE BACTERIA Rare /hpf; URINE BILIRUBIN Negative (NEGATIVE); URINE BLOOD 3+ (NEGATIVE); URINE COLOR Yellow; URINE GLUCOSE Negative (NEGATIVE); URINE KETONE Trace (NEGATIVE); URINE LEUKOCYTE ESTERASE Trace (NEGATIVE); URINE NITRATE Negative (NEGATIVE); URINE PROTEIN(semi-quant) Negative (NEGATIVE); URINE RBC >50 /hpf
[2019-02-02 20:19] LABS: BASO % 0.6 % (0.0-2.0); EOS # 0.1 (0.0-0.7); EOS % 1.1 % (0-4.0); GRAN # 2.5 (1.4-6.5); LYMPH # 3.2 (1.2-3.4); LYMPH % 51.5 % (20.0-51.0); MEAN CELL VOLUME 75 fl (80.0-100.0); MEAN CORPUSCULAR HEMOGLOBIN 23 pg (27.0-31.0); MEAN CORPUSCULAR HGB CONC 31 g/dl (33.0-37.0); MEAN PLATELET VOLUME 9.8 fl (7.4-10.4); MONO # 0.4 (0.1-0.6); MONO % 6.6 % (1.7-9.3); PLATELET COUNT 306 K/mm3 (130-400); RED BLOOD COUNT 4.81 M/mm3 (4.10-5.30); REDCELL DISTRIBUTION WIDTH-CV 16.3 % (11.5-14.5)
[2019-02-02 20:30] LABS: ALBUMIN 4.5 gm/dL (3.5-5.0); BILIRUBIN,TOTAL 0.2 mg/dL (0.0-1.0); CALCIUM 9.3 mg/dL (8.4-10.2); CREATININE, serum 0.78 (0.52-1.25); TOTAL PROTEIN 7.6 gm/dL (6.4-8.2)
[2019-02-02 21:37] VITALS: BP 132/87; PULSE 87
== END 2019-02-02 21:37 | disposition home or self-care (01) ==
LOC: COL.ER 19:33
PROVIDERS: Emergency Medicine
DX: N20.1 Calculus of ureter (principal); Z98.84 Bariatric surgery status; Z87.442 Personal history of urinary calculi
CPT/HCPCS: J1170; J2550

== ENCOUNTER 2019-02-12 19:01 | Emergency (ER) | payer MEDICAID ==
[2006-10-27 23:25] VITALS: BP 121/83
[~2019-02-12] VITALS: Ht 170.2 cm; Wt 93.2 kg
[2019-02-12 19:06] VITALS: BP 135/72; TEMP 98.8
[2019-02-12 20:14] LABS: COLLECTION METHOD CLEAN CATCH
[2019-02-12 20:30] LABS: MUCOUS Present /lpf; PH 5 (5-8); URINE APPEARANCE Cloudy; URINE BACTERIA None Seen /hpf; URINE BILIRUBIN Negative (NEGATIVE); URINE BLOOD 3+ (NEGATIVE); URINE COLOR Yellow; URINE GLUCOSE Negative (NEGATIVE); URINE KETONE Negative (NEGATIVE); URINE LEUKOCYTE ESTERASE Negative (NEGATIVE); URINE NITRATE Negative (NEGATIVE); URINE PROTEIN(semi-quant) 1+ (NEGATIVE); URINE RBC >50 /hpf; URINE UROBILINOGEN Negative (NEGATIVE)
[2019-02-12 20:35] LABS: BASO % 0.5 % (0.0-2.0); EOS # 0.1 (0.0-0.7); GRAN # 2.3 (1.4-6.5); GRAN % 38.4 % (42.2-75.2); HEMOGLOBIN 10.3 g/dl (12.5-16.0); LYMPH # 3.1 (1.2-3.4); LYMPH % 51.4 % (20.0-51.0); MEAN CELL VOLUME 76 fl (80.0-100.0); MEAN CORPUSCULAR HEMOGLOBIN 23 pg (27.0-31.0); MEAN CORPUSCULAR HGB CONC 30 g/dl (33.0-37.0); MEAN PLATELET VOLUME 9.2 fl (7.4-10.4); MONO # 0.5 (0.1-0.6); MONO % 7.4 % (1.7-9.3); PLATELET COUNT 304 K/mm3 (130-400); RED BLOOD COUNT 4.54 M/mm3 (4.10-5.30); REDCELL DISTRIBUTION WIDTH-CV 16.4 % (11.5-14.5)
[2019-02-12 20:36] LABS: HEMATOCRIT 34.4 % (37.0-47.0)
[2019-02-12 20:59] LABS: ALBUMIN 4.4 gm/dL (3.5-5.0); BILIRUBIN,TOTAL 0.3 mg/dL (0.0-1.0); CALCIUM 9.3 mg/dL (8.4-10.2); POTASSIUM 3.8 mmol/L (3.4-5.0); TOTAL PROTEIN 7.4 gm/dL (6.4-8.2)
[2019-02-12 21:23] VITALS: PULSE 85
== END 2019-02-12 21:23 | disposition home or self-care (01) ==
LOC: COL.ER 19:01
PROVIDERS: Physician Assistant
DX: N20.0 Calculus of kidney (principal)
CPT/HCPCS: J1170; J2550

== ENCOUNTER 2019-02-14 17:17 | Emergency (ER) | payer MEDICAID ==
[2006-10-27 23:25] VITALS: BP 121/83
[~2019-02-14] VITALS: Ht 162.6 cm; Wt 92.7 kg
[2019-02-14 17:30] VITALS: BP 155/79; TEMP 98.6
[2019-02-14 17:36] LABS: COLLECTION METHOD CLEAN CATCH
[2019-02-14 17:59] LABS: MUCOUS Present /lpf; PH 5 (5-8); SQUAMOUS EPITHELIAL 0-2 /hpf; URINE APPEARANCE Hazy; URINE BACTERIA None Seen /hpf; URINE BILIRUBIN Negative (NEGATIVE); URINE BLOOD 3+ (NEGATIVE); URINE COLOR Yellow; URINE GLUCOSE Negative (NEGATIVE); URINE KETONE Negative (NEGATIVE); URINE LEUKOCYTE ESTERASE Negative (NEGATIVE); URINE NITRATE Negative (NEGATIVE); URINE PROTEIN(semi-quant) Negative (NEGATIVE); URINE RBC >50 /hpf; URINE UROBILINOGEN Negative (NEGATIVE)
[2019-02-14 19:47] LABS: ALANINE AMINOTRANSFERASE 14 U/L (9-52); ALBUMIN 4.5 gm/dL (3.5-5.0); ALKALINE PHOSPHATASE 122 U/L (50-136); ANION GAP 63 mmol/L (7-16); AST,SGOT 35 U/L (15-37); BILIRUBIN,TOTAL 0.3 mg/dL (0.0-1.0); BLOOD UREA NITROGEN 16 mg/dL (7-17); CALCIUM 9.3 mg/dL (8.4-10.2); CARBON DIOXIDE 25 mmol/L (22-30); CHLORIDE 107 mmol/L (98-107); CREATININE, serum 0.87 (0.52-1.25); GLUCOSE 97 mg/dL (74-106); POTASSIUM 4.4 mmol/L (3.4-5.0); TOTAL PROTEIN 7.7 gm/dL (6.4-8.2)
[2019-02-14 19:56] LABS: C-REACTIVE PROTEIN < 0.5 mg/dL (0.0-0.9); SODIUM 195 mmol/L (137-145)
[2019-02-14 19:57] LABS: BASO % 0.3 % (0.0-2.0); EOS # 0.1 (0.0-0.7); EOS % 1.5 % (0-4.0); GRAN # 2.5 (1.4-6.5); GRAN % 40.2 % (42.2-75.2); HEMOGLOBIN 10.7 g/dl (12.5-16.0); LYMPH # 3.1 (1.2-3.4); LYMPH % 50.1 % (20.0-51.0); MEAN CELL VOLUME 75 fl (80.0-100.0); MEAN CORPUSCULAR HEMOGLOBIN 23 pg (27.0-31.0); MEAN CORPUSCULAR HGB CONC 31 g/dl (33.0-37.0); MONO # 0.5 (0.1-0.6); MONO % 7.6 % (1.7-9.3); PLATELET COUNT 211 K/mm3 (130-400); RED BLOOD COUNT 4.64 M/mm3 (4.10-5.30); REDCELL DISTRIBUTION WIDTH-CV 16.4 % (11.5-14.5)
[2019-02-14 20:24] LABS: CALCIUM 8.8 mg/dL (8.4-10.2); CREATININE, serum 0.83 (0.52-1.25); POTASSIUM 3.9 mmol/L (3.4-5.0)
[2019-02-14 21:35] VITALS: PULSE 81
== END 2019-02-14 21:37 | disposition home or self-care (01) ==
LOC: COL.ER 17:17
PROVIDERS: Emergency Medicine; Nurse Practitioner
DX: R31.9 Hematuria, unspecified (principal); R10.9 Unspecified abdominal pain; J45.909 Unspecified asthma, uncomplicated; F43.10 Post-traumatic stress disorder, unspecified; F32.9 Major depressive disorder, single episode, unspecified; F17.210 Nicotine dependence, cigarettes, uncomplicated; Z90.710 Acquired absence of both cervix and uterus; Z90.89 Acquired absence of other organs; Z98.84 Bariatric surgery status; Z87.442 Personal history of urinary calculi
CPT/HCPCS: J1170; J2405; J7030

== ENCOUNTER 2019-03-02 19:37 | Emergency (ER) | payer MEDICAID ==
[2006-10-27 23:25] VITALS: BP 121/83
[~2019-03-02] VITALS: Ht 170.2 cm; Wt 89.1 kg
[2019-03-02 19:44] VITALS: BP 130/73; TEMP 99.2
[2019-03-02 20:20] LABS: COLLECTION METHOD CLEAN CATCH
[2019-03-02 20:36] LABS: MUCOUS Present /lpf; PH 5 (5-8); SQUAMOUS EPITHELIAL 0-2 /hpf; URINE APPEARANCE Cloudy; URINE BACTERIA Rare /hpf; URINE BILIRUBIN Negative (NEGATIVE); URINE BLOOD 3+ (NEGATIVE); URINE COLOR Yellow; URINE GLUCOSE Negative (NEGATIVE); URINE KETONE Trace (NEGATIVE); URINE LEUKOCYTE ESTERASE Trace (NEGATIVE); URINE NITRATE Negative (NEGATIVE); URINE PROTEIN(semi-quant) Negative (NEGATIVE); URINE RBC 20-50 /hpf; URINE UROBILINOGEN Negative (NEGATIVE)
[2019-03-02] MEDS ORDERED: CLEOCIN HCL300 MG PO (20:36)
[2019-03-02] MEDS ORDERED: DIFLUCAN150 MG PO (21:13)
[2019-03-02 21:14] VITALS: PULSE 92
== END 2019-03-02 21:15 | disposition home or self-care (01) ==
LOC: COL.ER 19:37
PROVIDERS: Family Medicine
DX: N39.0 Urinary tract infection, site not specified (principal); Z87.442 Personal history of urinary calculi
CPT/HCPCS: J1170; J2550

== ENCOUNTER 2019-03-05 18:07 | Emergency (ER) | payer MEDICAID ==
[2006-10-27 23:25] VITALS: BP 121/83
[~2019-03-05] VITALS: Ht 170.2 cm; Wt 89.5 kg
[2019-03-05 18:17] VITALS: BP 133/73; TEMP 98.6
[2019-03-05 19:18] LABS: COLLECTION METHOD CLEAN CATCH
[2019-03-05 19:45] LABS: BASO % 0.7 % (0.0-2.0); EOS # 0.1 (0.0-0.7); EOS % 1.3 % (0-4.0); GRAN # 2.2 (1.4-6.5); GRAN % 35.2 % (42.2-75.2); HEMATOCRIT 37.7 % (37.0-47.0); HEMOGLOBIN 11.3 g/dl (12.5-16.0); LYMPH # 3.4 (1.2-3.4); LYMPH % 55.8 % (20.0-51.0); MEAN CELL VOLUME 76 fl (80.0-100.0); MEAN CORPUSCULAR HEMOGLOBIN 23 pg (27.0-31.0); MEAN CORPUSCULAR HGB CONC 30 g/dl (33.0-37.0); MEAN PLATELET VOLUME 9.6 fl (7.4-10.4); MONO # 0.4 (0.1-0.6); MONO % 6.7 % (1.7-9.3); PLATELET COUNT 293 K/mm3 (130-400); RED BLOOD COUNT 4.95 M/mm3 (4.10-5.30); REDCELL DISTRIBUTION WIDTH-CV 15.9 % (11.5-14.5)
[2019-03-05 19:54] LABS: ALBUMIN 4.6 gm/dL (3.5-5.0); BILIRUBIN,TOTAL 0.3 mg/dL (0.0-1.0); CALCIUM 9.6 mg/dL (8.4-10.2); CREATININE, serum 0.75 (0.52-1.25); POTASSIUM 3.9 mmol/L (3.4-5.0); TOTAL PROTEIN 7.8 gm/dL (6.4-8.2)
[2019-03-05 20:30] LABS: MUCOUS Present /lpf; PH 5 (5-8); SQUAMOUS EPITHELIAL 0-2 /hpf; URINE APPEARANCE Hazy; URINE BACTERIA Rare /hpf; URINE BILIRUBIN Negative (NEGATIVE); URINE BLOOD 3+ (NEGATIVE); URINE COLOR Yellow; URINE GLUCOSE Negative (NEGATIVE); URINE KETONE Negative (NEGATIVE); URINE LEUKOCYTE ESTERASE Negative (NEGATIVE); URINE NITRATE Negative (NEGATIVE); URINE PROTEIN(semi-quant) Negative (NEGATIVE); URINE RBC >50 /hpf; URINE UROBILINOGEN Negative (NEGATIVE)
[2019-03-05] MEDS ORDERED: OMNICEF 300MG300 MG PO (22:23)
[2019-03-05] MEDS ORDERED: PHENERGAN 25 TA25 MG PO (22:23)
[2019-03-05 22:31] VITALS: PULSE 83
== END 2019-03-05 22:31 | disposition home or self-care (01) ==
LOC: COL.ER 18:07
PROVIDERS: Nurse Practitioner Primary Care
DX: N20.0 Calculus of kidney (principal); N39.0 Urinary tract infection, site not specified; F43.10 Post-traumatic stress disorder, unspecified; F32.9 Major depressive disorder, single episode, unspecified; Z98.84 Bariatric surgery status; Z90.49 Acquired absence of other specified parts of digestive tract; Z87.442 Personal history of urinary calculi
CPT/HCPCS: J1170; J2550; Q9967

== ENCOUNTER 2019-03-21 17:35 | Emergency (ER) | payer MEDICAID ==
[2006-10-27 23:25] VITALS: BP 121/83
[~2019-03-21] VITALS: Ht 170.2 cm; Wt 92.1 kg
[2019-03-21 18:06] LABS: COLLECTION METHOD CLEAN CATCH
[2019-03-21 18:21] LABS: MUCOUS Present /lpf; PH 5 (5-8); URINE APPEARANCE Cloudy; URINE BACTERIA None Seen /hpf; URINE BILIRUBIN Negative (NEGATIVE); URINE BLOOD 3+ (NEGATIVE); URINE COLOR Amber; URINE GLUCOSE Negative (NEGATIVE); URINE KETONE Trace (NEGATIVE); URINE LEUKOCYTE ESTERASE Negative (NEGATIVE); URINE NITRATE Negative (NEGATIVE); URINE PROTEIN(semi-quant) 1+ (NEGATIVE); URINE RBC >50 /hpf; URINE UROBILINOGEN >=4.0 mg/dL (NEGATIVE)
[2019-03-21 22:03] LABS: BASO % 0.2 % (0.0-2.0); EOS # 0.1 (0.0-0.7); EOS % 0.9 % (0-4.0); GRAN % 53.3 % (42.2-75.2); LYMPH # 3.6 (1.2-3.4); LYMPH % 38.1 % (20.0-51.0); MEAN CELL VOLUME 75 fl (80.0-100.0); MEAN CORPUSCULAR HEMOGLOBIN 23 pg (27.0-31.0); MEAN CORPUSCULAR HGB CONC 31 g/dl (33.0-37.0); MEAN PLATELET VOLUME 9.6 fl (7.4-10.4); MONO # 0.7 (0.1-0.6); MONO % 7.3 % (1.7-9.3); PLATELET COUNT 316 K/mm3 (130-400); RED BLOOD COUNT 4.31 M/mm3 (4.10-5.30); REDCELL DISTRIBUTION WIDTH-CV 16.8 % (11.5-14.5)
[2019-03-21 22:15] LABS: HEMATOCRIT 32.2 % (37.0-47.0)
[2019-03-21 22:21] LABS: ALBUMIN 4.2 gm/dL (3.5-5.0); BILIRUBIN,TOTAL 0.4 mg/dL (0.0-1.0); C-REACTIVE PROTEIN 1.3 mg/dL (0.0-0.9); CALCIUM 8.8 mg/dL (8.4-10.2); CREATININE, serum 0.82 (0.52-1.25); TOTAL PROTEIN 7.5 gm/dL (6.4-8.2)
[2019-03-21 22:27] LABS: ERYTHROCYTE SEDIMENTATION RATE 18 mm/hr (0-30)
[2019-03-21 22:31] VITALS: BP 131/66
[2019-03-21 23:33] VITALS: PULSE 92; TEMP 99.7
== END 2019-03-21 23:37 | disposition home or self-care (01) ==
LOC: COL.ER 17:35
PROVIDERS: Emergency Medicine
DX: N20.1 Calculus of ureter (principal); N23 Unspecified renal colic; Z87.442 Personal history of urinary calculi; Z98.84 Bariatric surgery status; Z90.49 Acquired absence of other specified parts of digestive tract; Z90.710 Acquired absence of both cervix and uterus
CPT/HCPCS: J1170; J2405; J7030

== ENCOUNTER 2019-04-06 19:37 | Emergency (ER) | payer MEDICAID ==
[2006-10-27 23:25] VITALS: BP 121/83
[~2019-04-06] VITALS: Ht 170.2 cm; Wt 90.5 kg
[2019-04-06 19:48] VITALS: BP 121/86; TEMP 99.3
[2019-04-06 20:03] LABS: COLLECTION METHOD CLEAN CATCH
[2019-04-06 20:31] LABS: MUCOUS Present /lpf; PH 5 (5-8); URINE APPEARANCE Cloudy; URINE BACTERIA Rare /hpf; URINE BILIRUBIN Negative (NEGATIVE); URINE BLOOD 3+ (NEGATIVE); URINE COLOR Amber; URINE GLUCOSE Negative (NEGATIVE); URINE KETONE Trace (NEGATIVE); URINE LEUKOCYTE ESTERASE Negative (NEGATIVE); URINE NITRATE Negative (NEGATIVE); URINE PROTEIN(semi-quant) 1+ (NEGATIVE); URINE RBC >50 /hpf; URINE UROBILINOGEN Negative (NEGATIVE)
[2019-04-06 21:47] LABS: STREP SCREEN NEGATIVE
[2019-04-06] MEDS ORDERED: TESSALON PERLE200 MG PO (21:55)
[2019-04-06 22:10] VITALS: PULSE 96
== END 2019-04-06 22:10 | disposition home or self-care (01) ==
LOC: COL.ER 19:37
PROVIDERS: Emergency Medicine; Family Medicine
DX: J40 Bronchitis, not specified as acute or chronic (principal); R31.9 Hematuria, unspecified; R10.9 Unspecified abdominal pain; M79.7 Fibromyalgia; G40.909 Epilepsy, unspecified, not intractable, without status epilepticus; Z90.710 Acquired absence of both cervix and uterus; Z87.442 Personal history of urinary calculi; Z90.89 Acquired absence of other organs; Z98.84 Bariatric surgery status
CPT/HCPCS: J1170; J2550

== ENCOUNTER 2019-04-21 19:19 | Emergency (ER) | payer MEDICAID ==
[2006-10-27 23:25] VITALS: BP 121/83
[~2019-04-21] VITALS: Ht 170.2 cm; Wt 87.7 kg
[2019-04-21 19:54] LABS: COLLECTION METHOD CLEAN CATCH
[2019-04-21 20:12] LABS: ALBUMIN 4.4 gm/dL (3.5-5.0); BILIRUBIN,TOTAL 0.6 mg/dL (0.0-1.0); C-REACTIVE PROTEIN 0.8 mg/dL (0.0-0.9); CALCIUM 9.1 mg/dL (8.4-10.2); CREATININE, serum 0.87 (0.52-1.25); POTASSIUM 3.7 mmol/L (3.4-5.0); TOTAL PROTEIN 7.7 gm/dL (6.4-8.2)
[2019-04-21 20:13] LABS: BASO % 0.2 % (0.0-2.0); EOS # 0.1 (0.0-0.7); EOS % 0.3 % (0-4.0); GRAN % 75.2 % (42.2-75.2); HEMOGLOBIN 10.6 g/dl (12.5-16.0); LYMPH # 2.8 (1.2-3.4); LYMPH % 19.3 % (20.0-51.0); MEAN CELL VOLUME 76 fl (80.0-100.0); MEAN CORPUSCULAR HEMOGLOBIN 23 pg (27.0-31.0); MEAN CORPUSCULAR HGB CONC 30 g/dl (33.0-37.0); MEAN PLATELET VOLUME 10.1 fl (7.4-10.4); MONO # 0.7 (0.1-0.6); MONO % 4.7 % (1.7-9.3); PLATELET COUNT 344 K/mm3 (130-400); RED BLOOD COUNT 4.59 M/mm3 (4.10-5.30)
[2019-04-21 20:15] LABS: HEMATOCRIT 34.9 % (37.0-47.0)
[2019-04-21 20:19] LABS: MUCOUS Present /lpf; PH 7 (5-8); URINE APPEARANCE Hazy; URINE BACTERIA None Seen /hpf; URINE BILIRUBIN Negative (NEGATIVE); URINE BLOOD 2+ (NEGATIVE); URINE COLOR Yellow; URINE GLUCOSE Negative (NEGATIVE); URINE KETONE Negative (NEGATIVE); URINE LEUKOCYTE ESTERASE Negative (NEGATIVE); URINE NITRATE Negative (NEGATIVE); URINE PROTEIN(semi-quant) 1+ (NEGATIVE); URINE RBC >50 /hpf
[2019-04-21 20:26] LABS: STREP SCREEN NEGATIVE
[2019-04-21] MEDS ORDERED: PHENERGAN 25 TA25 MG PO ×2 (21:38)
[2019-04-21] MEDS ORDERED: OMNICEF 300MG300 MG PO (21:47)
[2019-04-21 21:52] VITALS: BP 112/75; PULSE 95; TEMP 99.9
[2019-04-21] MEDS ORDERED: DIFLUCAN 100MG100 MG PO (22:05)
== END 2019-04-21 22:15 | disposition home or self-care (01) ==
LOC: COL.ER 19:19
PROVIDERS: Emergency Medicine
DX: K14.0 Glossitis (principal); R10.9 Unspecified abdominal pain; R50.9 Fever, unspecified; Z87.442 Personal history of urinary calculi
CPT/HCPCS: J1170; J2550; J7030; Q9967

== ENCOUNTER 2019-05-06 18:13 | Emergency (ER) | payer MEDICAID ==
[2006-10-27 23:25] VITALS: BP 121/83
[~2019-05-06] VITALS: Ht 170.2 cm; Wt 91.8 kg
[2019-05-06 18:33] VITALS: BP 154/92; TEMP 99.2
[2019-05-06 19:39] LABS: COLLECTION METHOD CLEAN CATCH
[2019-05-06 19:42] LABS: ALANINE AMINOTRANSFERASE 7 U/L (9-52); ALBUMIN 4.4 gm/dL (3.5-5.0); ALKALINE PHOSPHATASE 121 U/L (50-136); ANION GAP 11 mmol/L (7-16); AST,SGOT 25 U/L (15-37); BILIRUBIN,TOTAL 0.3 mg/dL (0.0-1.0); BLOOD UREA NITROGEN 16 mg/dL (7-17); CALCIUM 9.1 mg/dL (8.4-10.2); CARBON DIOXIDE 27 mmol/L (22-30); CHLORIDE 102 mmol/L (98-107); CREATININE, serum 0.82 (0.52-1.25); GLUCOSE 95 mg/dL (74-106); LIPASE 40 U/L (23-300); POTASSIUM 4.3 mmol/L (3.4-5.0); SODIUM 139 mmol/L (137-145); TOTAL PROTEIN 7.4 gm/dL (6.4-8.2)
[2019-05-06 19:46] LABS: C-REACTIVE PROTEIN < 0.5 mg/dL (0.0-0.9)
[2019-05-06 19:53] LABS: BASO % 0.4 % (0.0-2.0); EOS # 0.1 (0.0-0.7); EOS % 1.9 % (0-4.0); GRAN # 2.6 (1.4-6.5); GRAN % 37.7 % (42.2-75.2); HEMOGLOBIN 10.7 g/dl (12.5-16.0); LYMPH # 3.7 (1.2-3.4); LYMPH % 53.6 % (20.0-51.0); MEAN CELL VOLUME 76 fl (80.0-100.0); MEAN CORPUSCULAR HEMOGLOBIN 23 pg (27.0-31.0); MEAN CORPUSCULAR HGB CONC 31 g/dl (33.0-37.0); MEAN PLATELET VOLUME 9.7 fl (7.4-10.4); MONO # 0.4 (0.1-0.6); MONO % 6.1 % (1.7-9.3); PLATELET COUNT 335 K/mm3 (130-400); RED BLOOD COUNT 4.58 M/mm3 (4.10-5.30); REDCELL DISTRIBUTION WIDTH-CV 17.5 % (11.5-14.5)
[2019-05-06 19:58] LABS: MUCOUS Present /lpf; PH 5 (5-8); URINE APPEARANCE Hazy; URINE BACTERIA Rare /hpf; URINE BILIRUBIN Negative (NEGATIVE); URINE BLOOD 3+ (NEGATIVE); URINE COLOR Yellow; URINE GLUCOSE Negative (NEGATIVE); URINE KETONE Negative (NEGATIVE); URINE LEUKOCYTE ESTERASE Trace (NEGATIVE); URINE NITRATE Negative (NEGATIVE); URINE PROTEIN(semi-quant) 1+ (NEGATIVE); URINE RBC 20-50 /hpf
[2019-05-06] MEDS ORDERED: LIDO2%JEL30 BC (20:34)
[2019-05-06 20:43] VITALS: PULSE 94
== END 2019-05-06 20:43 | disposition home or self-care (01) ==
LOC: COL.ER 18:13
PROVIDERS: Emergency Medicine
DX: N23 Unspecified renal colic (principal); K12.1 Other forms of stomatitis; Z87.442 Personal history of urinary calculi
CPT/HCPCS: J1170; J2405; J7030

== ENCOUNTER 2019-05-22 20:26 | Emergency (ER) | payer MEDICAID ==
[2006-10-27 23:25] VITALS: BP 121/83
[~2019-05-22] VITALS: Ht 170.2 cm; Wt 88.6 kg
[~2019-05-22 20:26] MED LIST changes: +LIDO2%JEL30 BC
[2019-05-22 20:43] VITALS: BP 127/81
[2019-05-22 21:05] LABS: COLLECTION METHOD CLEAN CATCH
[2019-05-22 21:12] LABS: AMORPHOUS CRYSTAL Present /uL; MUCOUS Present /lpf; PH 5 (5-8); URINE APPEARANCE Hazy; URINE BACTERIA None Seen /hpf; URINE BILIRUBIN Negative (NEGATIVE); URINE BLOOD 3+ (NEGATIVE); URINE COLOR Amber; URINE GLUCOSE Negative (NEGATIVE); URINE KETONE Trace (NEGATIVE); URINE LEUKOCYTE ESTERASE Negative (NEGATIVE); URINE NITRATE Negative (NEGATIVE); URINE PROTEIN(semi-quant) 1+ (NEGATIVE); URINE RBC >50 /hpf; URINE UROBILINOGEN >=4.0 mg/dL (NEGATIVE)
[2019-05-22 21:30] LABS: BASO % 0.4 % (0.0-2.0); EOS # 0.1 (0.0-0.7); EOS % 1.4 % (0-4.0); GRAN # 3.7 (1.4-6.5); LYMPH # 3.5 (1.2-3.4); LYMPH % 43.7 % (20.0-51.0); MEAN CELL VOLUME 76 fl (80.0-100.0); MEAN CORPUSCULAR HEMOGLOBIN 23 pg (27.0-31.0); MEAN CORPUSCULAR HGB CONC 31 g/dl (33.0-37.0); MEAN PLATELET VOLUME 9.7 fl (7.4-10.4); MONO # 0.6 (0.1-0.6); MONO % 7.1 % (1.7-9.3); PLATELET COUNT 298 K/mm3 (130-400); RED BLOOD COUNT 4.73 M/mm3 (4.10-5.30); REDCELL DISTRIBUTION WIDTH-CV 17.6 % (11.5-14.5)
[2019-05-22 21:32] LABS: HEMATOCRIT 35.9 % (37.0-47.0)
[2019-05-22 21:43] LABS: ALANINE AMINOTRANSFERASE 10 U/L (9-52); ALBUMIN 4.3 gm/dL (3.5-5.0); ALKALINE PHOSPHATASE 131 U/L (50-136); ANION GAP 10 mmol/L (7-16); AST,SGOT 24 U/L (15-37); BILIRUBIN,TOTAL 0.4 mg/dL (0.0-1.0); BLOOD UREA NITROGEN 16 mg/dL (7-17); CALCIUM 9.1 mg/dL (8.4-10.2); CARBON DIOXIDE 28 mmol/L (22-30); CHLORIDE 100 mmol/L (98-107); CREATININE, serum 0.87 (0.52-1.25); GLUCOSE 95 mg/dL (74-106); LIPASE 62 U/L (23-300); POTASSIUM 3.9 mmol/L (3.4-5.0); SODIUM 139 mmol/L (137-145); TOTAL PROTEIN 7.5 gm/dL (6.4-8.2)
[2019-05-22 22:10] LABS: C-REACTIVE PROTEIN < 0.5 mg/dL (0.0-0.9)
[2019-05-22 23:34] VITALS: PULSE 91; TEMP 99.7
== END 2019-05-22 23:34 | disposition home or self-care (01) ==
LOC: COL.ER 20:26
PROVIDERS: Emergency Medicine
DX: N20.1 Calculus of ureter (principal); Z90.710 Acquired absence of both cervix and uterus; Z98.84 Bariatric surgery status; Z87.442 Personal history of urinary calculi; Z90.89 Acquired absence of other organs
CPT/HCPCS: J1170; J2405; J7030

== ENCOUNTER 2019-05-25 19:31 | Emergency (ER) | payer MEDICAID ==
[2006-10-27 23:25] VITALS: BP 121/83
[2019-05-25 19:39] VITALS: BP 141/75; TEMP 98
[2019-05-25 20:00] LABS: COLLECTION METHOD CLEAN CATCH
[2019-05-25 20:15] LABS: MUCOUS Present /lpf; PH 5 (5-8); URINE APPEARANCE Clear; URINE BACTERIA Rare /hpf; URINE BILIRUBIN Negative (NEGATIVE); URINE BLOOD 3+ (NEGATIVE); URINE COLOR Red; URINE GLUCOSE Negative (NEGATIVE); URINE KETONE Negative (NEGATIVE); URINE LEUKOCYTE ESTERASE Negative (NEGATIVE); URINE NITRATE Positive (NEGATIVE); URINE PROTEIN(semi-quant) 2+ (NEGATIVE); URINE RBC >50 /hpf; URINE UROBILINOGEN >=4.0 mg/dL (NEGATIVE)
[2019-05-25 20:26] LABS: BASO % 0.4 % (0.0-2.0); EOS # 0.1 (0.0-0.7); EOS % 1.1 % (0-4.0); GRAN # 3.8 (1.4-6.5); GRAN % 49.8 % (42.2-75.2); HEMOGLOBIN 11.2 g/dl (12.5-16.0); LYMPH # 3.1 (1.2-3.4); LYMPH % 41.1 % (20.0-51.0); MEAN CELL VOLUME 77 fl (80.0-100.0); MEAN CORPUSCULAR HEMOGLOBIN 23 pg (27.0-31.0); MEAN CORPUSCULAR HGB CONC 31 g/dl (33.0-37.0); MONO # 0.6 (0.1-0.6); MONO % 7.3 % (1.7-9.3); PLATELET COUNT 332 K/mm3 (130-400); RED BLOOD COUNT 4.78 M/mm3 (4.10-5.30); REDCELL DISTRIBUTION WIDTH-CV 17.8 % (11.5-14.5)
[2019-05-25 20:38] LABS: HEMATOCRIT 36.7 % (37.0-47.0)
[2019-05-25 20:41] LABS: ALANINE AMINOTRANSFERASE 14 U/L (9-52); ALBUMIN 4.6 gm/dL (3.5-5.0); ALKALINE PHOSPHATASE 148 U/L (50-136); ANION GAP 10 mmol/L (7-16); AST,SGOT 28 U/L (15-37); BILIRUBIN,TOTAL 0.5 mg/dL (0.0-1.0); BLOOD UREA NITROGEN 20 mg/dL (7-17); C-REACTIVE PROTEIN < 0.5 mg/dL (0.0-0.9); CALCIUM 9.4 mg/dL (8.4-10.2); CARBON DIOXIDE 28 mmol/L (22-30); CHLORIDE 102 mmol/L (98-107); GLUCOSE 109 mg/dL (74-106); SODIUM 140 mmol/L (137-145); TOTAL PROTEIN 7.8 gm/dL (6.4-8.2)
[2019-05-25 21:29] VITALS: PULSE 105
== END 2019-05-25 21:29 | disposition home or self-care (01) ==
LOC: COL.ER 19:31
PROVIDERS: Emergency Medicine
DX: M26.601 Right temporomandibular joint disorder, unspecified (principal); N23 Unspecified renal colic; Z90.710 Acquired absence of both cervix and uterus; Z90.89 Acquired absence of other organs; Z98.84 Bariatric surgery status; Z87.442 Personal history of urinary calculi
CPT/HCPCS: J1170; J2405; J7030

== ENCOUNTER 2019-06-04 20:29 | Emergency (ER) | payer MEDICAID ==
[2006-10-27 23:25] VITALS: BP 121/83
[~2019-06-04] VITALS: Ht 170.2 cm; Wt 91.8 kg
[2019-06-04 20:35] VITALS: BP 150/83; TEMP 97.4
[2019-06-04 20:44] LABS: COLLECTION METHOD CLEAN CATCH
[2019-06-04 21:03] LABS: MUCOUS Present /lpf; PH 5 (5-8); URINE APPEARANCE Hazy; URINE BACTERIA Rare /hpf; URINE BILIRUBIN Negative (NEGATIVE); URINE BLOOD 3+ (NEGATIVE); URINE COLOR Yellow; URINE GLUCOSE Negative (NEGATIVE); URINE KETONE Negative (NEGATIVE); URINE LEUKOCYTE ESTERASE Negative (NEGATIVE); URINE NITRATE Negative (NEGATIVE); URINE PROTEIN(semi-quant) Negative (NEGATIVE); URINE RBC >50 /hpf
[2019-06-04 21:56] VITALS: PULSE 100
== END 2019-06-04 21:56 | disposition home or self-care (01) ==
LOC: COL.ER 20:29
PROVIDERS: Nurse Practitioner
DX: R10.9 Unspecified abdominal pain (principal); F43.10 Post-traumatic stress disorder, unspecified; F32.9 Major depressive disorder, single episode, unspecified; J45.909 Unspecified asthma, uncomplicated; Z87.442 Personal history of urinary calculi; Z90.89 Acquired absence of other organs
CPT/HCPCS: J1170; J2550

== ENCOUNTER 2019-06-11 14:08 | Emergency (ER) | payer MEDICAID ==
[2006-10-27 23:25] VITALS: BP 121/83
[~2019-06-11] VITALS: Ht 170.2 cm; Wt 91.8 kg
[2019-06-11 14:16] VITALS: BP 118/90; TEMP 98.5
[2019-06-11 14:33] LABS: COLLECTION METHOD CLEAN CATCH
[2019-06-11 14:50] LABS: MUCOUS Present /lpf; PH 5 (5-8); URINE APPEARANCE Hazy; URINE BACTERIA Moderate /hpf; URINE BILIRUBIN Negative (NEGATIVE); URINE BLOOD 3+ (NEGATIVE); URINE COLOR Red; URINE GLUCOSE Negative (NEGATIVE); URINE KETONE Negative (NEGATIVE); URINE LEUKOCYTE ESTERASE Negative (NEGATIVE); URINE NITRATE Positive (NEGATIVE); URINE PROTEIN(semi-quant) 2+ (NEGATIVE); URINE RBC >50 /hpf; URINE UROBILINOGEN >=4.0 mg/dL (NEGATIVE)
[2019-06-11 15:16] LABS: BASO # 0.1 (0.0-0.2); BASO % 0.5 % (0.0-2.0); EOS # 0.1 (0.0-0.7); EOS % 1.3 % (0-4.0); GRAN # 4.1 (1.4-6.5); GRAN % 41.7 % (42.2-75.2); HEMATOCRIT 39.7 % (37.0-47.0); HEMOGLOBIN 11.8 g/dl (12.5-16.0); LYMPH # 4.9 (1.2-3.4); LYMPH % 49.9 % (20.0-51.0); MEAN CELL VOLUME 79 fl (80.0-100.0); MEAN CORPUSCULAR HEMOGLOBIN 23 pg (27.0-31.0); MEAN CORPUSCULAR HGB CONC 30 g/dl (33.0-37.0); MEAN PLATELET VOLUME 9.7 fl (7.4-10.4); MONO # 0.6 (0.1-0.6); MONO % 6.2 % (1.7-9.3); PLATELET COUNT 348 K/mm3 (130-400); RED BLOOD COUNT 5.06 M/mm3 (4.10-5.30); REDCELL DISTRIBUTION WIDTH-CV 17.6 % (11.5-14.5)
[2019-06-11 15:23] LABS: CALCIUM 9.2 mg/dL (8.4-10.2); CREATININE, serum 0.78 (0.52-1.25); POTASSIUM 3.6 mmol/L (3.4-5.0)
[2019-06-11 16:33] VITALS: PULSE 90
== END 2019-06-11 16:32 | disposition home or self-care (01) ==
LOC: COL.ER 14:08
PROVIDERS: Emergency Medicine
DX: R10.9 Unspecified abdominal pain (principal); R31.9 Hematuria, unspecified; Z90.710 Acquired absence of both cervix and uterus; Z87.442 Personal history of urinary calculi; Z98.84 Bariatric surgery status
CPT/HCPCS: J1170; J1790; J7030

== ENCOUNTER 2019-06-18 18:55 | Emergency (ER) | payer MEDICAID ==
[2006-10-27 23:25] VITALS: BP 121/83
[~2019-06-18] VITALS: Ht 170.2 cm; Wt 91.8 kg
[2019-06-18 19:10] VITALS: BP 125/68; TEMP 98.3
[2019-06-18 19:52] LABS: COLLECTION METHOD CLEAN CATCH
[2019-06-18 19:59] LABS: MUCOUS Present /lpf; PH 6 (5-8); URINE APPEARANCE Hazy; URINE BACTERIA None Seen /hpf; URINE BILIRUBIN Negative (NEGATIVE); URINE BLOOD 3+ (NEGATIVE); URINE COLOR Amber; URINE GLUCOSE Negative (NEGATIVE); URINE KETONE Negative (NEGATIVE); URINE LEUKOCYTE ESTERASE Negative (NEGATIVE); URINE NITRATE Negative (NEGATIVE); URINE PROTEIN(semi-quant) 1+ (NEGATIVE); URINE RBC >50 /hpf
[2019-06-18 20:40] VITALS: PULSE 96
== END 2019-06-18 20:40 | disposition home or self-care (01) ==
LOC: COL.ER 18:55
PROVIDERS: Emergency Medicine
DX: R10.9 Unspecified abdominal pain (principal); M26.601 Right temporomandibular joint disorder, unspecified; R31.9 Hematuria, unspecified; G89.29 Other chronic pain; G43.909 Migraine, unspecified, not intractable, without status migrainosus; Z98.84 Bariatric surgery status; Z90.710 Acquired absence of both cervix and uterus; Z87.442 Personal history of urinary calculi; Z91.14 Patient's other noncompliance with medication regimen
CPT/HCPCS: J1170; J1790

== ENCOUNTER 2019-07-27 19:17 | Emergency (ER) | payer MEDICAID ==
[2006-10-27 23:25] VITALS: BP 121/83
[~2019-07-27] VITALS: Ht 170.2 cm; Wt 93.2 kg
[2019-07-27 19:26] VITALS: BP 137/82; TEMP 98.8
[2019-07-27 20:23] LABS: COLLECTION METHOD CLEAN CATCH
[2019-07-27 20:32] LABS: MUCOUS Present /lpf; PH 5 (5-8); SQUAMOUS EPITHELIAL 0-2 /hpf; URINE APPEARANCE Hazy; URINE BACTERIA None Seen /hpf; URINE BILIRUBIN Negative (NEGATIVE); URINE BLOOD 3+ (NEGATIVE); URINE COLOR Yellow; URINE GLUCOSE Negative (NEGATIVE); URINE KETONE Negative (NEGATIVE); URINE LEUKOCYTE ESTERASE Negative (NEGATIVE); URINE NITRATE Negative (NEGATIVE); URINE PROTEIN(semi-quant) Negative (NEGATIVE); URINE RBC >50 /hpf
[2019-07-27 21:08] VITALS: PULSE 85
== END 2019-07-27 21:12 | disposition home or self-care (01) ==
LOC: COL.ER 19:17
PROVIDERS: Physician Assistant
DX: R10.9 Unspecified abdominal pain (principal); Z87.442 Personal history of urinary calculi
CPT/HCPCS: J1170; J1790

== ENCOUNTER 2019-08-17 17:55 | Emergency (ER) | payer MEDICAID ==
[~2019-08-17] VITALS: Ht 170.2 cm; Wt 93.2 kg
[2019-08-17 18:08] VITALS: BP 123/79; TEMP 98.8
[2019-08-17 18:15] LABS: COLLECTION METHOD CLEAN CATCH
[2019-08-17 18:55] LABS: MUCOUS Present /lpf; PH 5 (5-8); URINE APPEARANCE Clear; URINE BACTERIA None Seen /hpf; URINE BILIRUBIN Negative (NEGATIVE); URINE BLOOD 2+ (NEGATIVE); URINE COLOR Red; URINE GLUCOSE Negative (NEGATIVE); URINE KETONE Negative (NEGATIVE); URINE LEUKOCYTE ESTERASE Negative (NEGATIVE); URINE NITRATE Positive (NEGATIVE); URINE PROTEIN(semi-quant) 2+ (NEGATIVE); URINE RBC >50 /hpf
[2019-08-17 19:17] VITALS: PULSE 91
== END 2019-08-17 19:15 | disposition home or self-care (01) ==
LOC: COL.ER 17:55
PROVIDERS: Physician Assistant
DX: R10.9 Unspecified abdominal pain (principal); R31.9 Hematuria, unspecified; F17.210 Nicotine dependence, cigarettes, uncomplicated; Z90.89 Acquired absence of other organs; Z90.710 Acquired absence of both cervix and uterus; Z87.442 Personal history of urinary calculi; Z98.84 Bariatric surgery status
CPT/HCPCS: J1170; J2550

== ENCOUNTER 2019-08-23 20:33 | Emergency (ER) | payer MEDICAID ==
[2006-10-27 23:25] VITALS: BP 121/83
[~2019-08-23] VITALS: Ht 170.2 cm; Wt 93.2 kg
[2019-08-23 21:59] LABS: COLLECTION METHOD CLEAN CATCH
[2019-08-23 22:07] LABS: MUCOUS Present /lpf; PH 5 (5-8); URINE APPEARANCE Clear; URINE BACTERIA Rare /hpf; URINE BILIRUBIN Negative (NEGATIVE); URINE BLOOD 3+ (NEGATIVE); URINE COLOR Amber; URINE GLUCOSE Negative (NEGATIVE); URINE KETONE Negative (NEGATIVE); URINE LEUKOCYTE ESTERASE Negative (NEGATIVE); URINE NITRATE Positive (NEGATIVE); URINE PROTEIN(semi-quant) Negative (NEGATIVE); URINE RBC >50 /hpf; URINE UROBILINOGEN >=4.0 mg/dL (NEGATIVE)
[2019-08-24 00:25] VITALS: BP 128/65; PULSE 91; TEMP 98.8
== END 2019-08-24 00:27 | disposition home or self-care (01) ==
LOC: COL.ER 20:33
PROVIDERS: Emergency Medicine
DX: R10.9 Unspecified abdominal pain (principal); F32.9 Major depressive disorder, single episode, unspecified; F43.10 Post-traumatic stress disorder, unspecified
CPT/HCPCS: J1170; J2550

== ENCOUNTER 2019-08-30 20:58 | Emergency (ER) | payer MEDICAID ==
[2006-10-27 23:25] VITALS: BP 121/83
[~2019-08-30] VITALS: Ht 170.2 cm; Wt 96.8 kg
[2019-08-30 21:23] LABS: COLLECTION METHOD CLEAN CATCH
[2019-08-30 21:32] LABS: MUCOUS Present /lpf; PH 6 (5-8); URINE APPEARANCE Clear; URINE BACTERIA Rare /hpf; URINE BILIRUBIN Negative (NEGATIVE); URINE BLOOD 3+ (NEGATIVE); URINE COLOR Amber; URINE GLUCOSE Negative (NEGATIVE); URINE KETONE Negative (NEGATIVE); URINE LEUKOCYTE ESTERASE Negative (NEGATIVE); URINE NITRATE Positive (NEGATIVE); URINE PROTEIN(semi-quant) 1+ (NEGATIVE); URINE RBC >50 /hpf; URINE UROBILINOGEN >=4.0 mg/dL (NEGATIVE)
[2019-08-30 22:43] VITALS: BP 122/83; PULSE 99; TEMP 98.8
== END 2019-08-30 22:58 | disposition home or self-care (01) ==
LOC: COL.ER 20:58
PROVIDERS: Physician Assistant
DX: R10.9 Unspecified abdominal pain (principal); R31.9 Hematuria, unspecified; F32.9 Major depressive disorder, single episode, unspecified; F43.10 Post-traumatic stress disorder, unspecified; Z87.442 Personal history of urinary calculi; Z98.84 Bariatric surgery status; Z90.710 Acquired absence of both cervix and uterus; Z90.49 Acquired absence of other specified parts of digestive tract; Z90.89 Acquired absence of other organs
CPT/HCPCS: J1170; J2550

== ENCOUNTER 2019-09-26 00:47 | Emergency (ER) | payer MEDICAID ==
[2006-10-27 23:25] VITALS: BP 121/83
[~2019-09-26] VITALS: Ht 170.2 cm; Wt 96.4 kg
[2019-09-26 00:52] VITALS: BP 127/76; TEMP 99.1
[2019-09-26 01:07] LABS: COLLECTION METHOD CLEAN CATCH
[2019-09-26 01:16] LABS: MUCOUS Present /lpf; PH 5 (5-8); URINE APPEARANCE Hazy; URINE BACTERIA None Seen /hpf; URINE BILIRUBIN Negative (NEGATIVE); URINE BLOOD 3+ (NEGATIVE); URINE COLOR Amber; URINE GLUCOSE Negative (NEGATIVE); URINE KETONE Negative (NEGATIVE); URINE LEUKOCYTE ESTERASE Trace (NEGATIVE); URINE NITRATE Positive (NEGATIVE); URINE PROTEIN(semi-quant) 1+ (NEGATIVE); URINE RBC >50 /hpf; URINE UROBILINOGEN >=4.0 mg/dL (NEGATIVE)
[2019-09-26] MEDS ORDERED: MAGIC MOUTH PO (01:44)
[2019-09-26 01:49] VITALS: PULSE 74
== END 2019-09-26 01:50 | disposition home or self-care (01) ==
LOC: COL.ER 00:47
PROVIDERS: Emergency Medicine
DX: R10.9 Unspecified abdominal pain (principal); Z87.442 Personal history of urinary calculi
CPT/HCPCS: J1170; J2550

== ENCOUNTER 2019-09-30 20:51 | Emergency (ER) | payer MEDICAID ==
[~2019-09-30] VITALS: Ht 170.2 cm; Wt 96.8 kg
[~2019-09-30 20:51] MED LIST changes: +MAGIC MOUTH PO
[2019-09-30 21:31] LABS: COLLECTION METHOD CLEAN CATCH
[2019-09-30 21:44] LABS: MUCOUS Present /lpf; PH 5 (5-8); SQUAMOUS EPITHELIAL 0-2 /hpf; URINE APPEARANCE Hazy; URINE BACTERIA Rare /hpf; URINE BILIRUBIN Negative (NEGATIVE); URINE BLOOD 2+ (NEGATIVE); URINE COLOR Yellow; URINE GLUCOSE Negative (NEGATIVE); URINE KETONE Negative (NEGATIVE); URINE LEUKOCYTE ESTERASE 2+ (NEGATIVE); URINE NITRATE Negative (NEGATIVE); URINE PROTEIN(semi-quant) Negative (NEGATIVE); URINE RBC >50 /hpf; URINE UROBILINOGEN Negative (NEGATIVE)
[2019-09-30] MEDS ORDERED: AMOXICILLIN 8751 TAB PO (22:00)
[2019-09-30] MEDS ORDERED: DIFLUCAN150 MG PO (22:54)
[2019-09-30 22:58] VITALS: BP 146/77; PULSE 84; TEMP 98.8
== END 2019-09-30 23:03 | disposition home or self-care (01) ==
LOC: COL.ER 20:51
PROVIDERS: Family Medicine
DX: N39.0 Urinary tract infection, site not specified (principal); F17.210 Nicotine dependence, cigarettes, uncomplicated; Z79.82 Long term (current) use of aspirin
CPT/HCPCS: J1170; J2550

== ENCOUNTER 2019-10-10 20:13 | Emergency (ER) | payer MEDICAID ==
[2006-10-27 23:25] VITALS: BP 121/83
[~2019-10-10] VITALS: Ht 170.2 cm; Wt 97.3 kg
[2019-10-10 20:29] VITALS: BP 152/93; TEMP 99.2
[2019-10-10 23:10] LABS: COLLECTION METHOD CLEAN CATCH
[2019-10-10 23:16] LABS: MUCOUS Present /lpf; PH 5 (5-8); URINE APPEARANCE Cloudy; URINE BACTERIA None Seen /hpf; URINE BILIRUBIN Negative (NEGATIVE); URINE BLOOD 3+ (NEGATIVE); URINE COLOR Yellow; URINE GLUCOSE Negative (NEGATIVE); URINE KETONE Negative (NEGATIVE); URINE LEUKOCYTE ESTERASE 3+ (NEGATIVE); URINE NITRATE Negative (NEGATIVE); URINE PROTEIN(semi-quant) 1+ (NEGATIVE); URINE RBC >50 /hpf
[2019-10-10] MEDS ORDERED: CEPHALEXIN500 M1 PO (23:22)
[2019-10-10 23:49] VITALS: PULSE 68
== END 2019-10-10 23:49 | disposition home or self-care (01) ==
LOC: COL.ER 20:13
PROVIDERS: Physician Assistant
DX: N39.0 Urinary tract infection, site not specified (principal); R30.0 Dysuria; F32.9 Major depressive disorder, single episode, unspecified; G25.81 Restless legs syndrome; Z87.442 Personal history of urinary calculi
CPT/HCPCS: J1170; J2550

== ENCOUNTER 2019-10-30 19:32 | Emergency (ER) | payer MEDICAID ==
[~2019-10-30] VITALS: Ht 170.2 cm; Wt 97.3 kg
[2019-10-30 19:48] VITALS: TEMP 99
[2019-10-30 19:58] LABS: COLLECTION METHOD CLEAN CATCH
[2019-10-30 20:09] LABS: MUCOUS Present /lpf; PH 5 (5-8); SQUAMOUS EPITHELIAL 0-2 /hpf; URINE APPEARANCE Clear; URINE BACTERIA None Seen /hpf; URINE BILIRUBIN Negative (NEGATIVE); URINE BLOOD 3+ (NEGATIVE); URINE COLOR Yellow; URINE GLUCOSE Negative (NEGATIVE); URINE KETONE Negative (NEGATIVE); URINE LEUKOCYTE ESTERASE Negative (NEGATIVE); URINE NITRATE Negative (NEGATIVE); URINE PROTEIN(semi-quant) Negative (NEGATIVE); URINE RBC >50 /hpf; URINE UROBILINOGEN Negative (NEGATIVE)
[2019-10-30] MEDS ORDERED: CEPHALEXIN500 M1 PO (20:47)
[2019-10-30 21:08] VITALS: BP 116/78; PULSE 97
== END 2019-10-30 21:08 | disposition home or self-care (01) ==
LOC: COL.ER 19:32
PROVIDERS: Emergency Medicine
DX: N20.1 Calculus of ureter (principal); F41.9 Anxiety disorder, unspecified
CPT/HCPCS: J1170

== ENCOUNTER 2019-11-17 21:41 | Emergency (ER) | payer MEDICAID ==
[~2019-11-17] VITALS: Ht 170.2 cm; Wt 95.5 kg
[2019-11-17 21:49] VITALS: TEMP 99.6
[2019-11-17 21:55] LABS: COLLECTION METHOD CLEAN CATCH
[2019-11-17 22:03] LABS: PH 5 (5-8); URINE APPEARANCE Hazy; URINE BACTERIA Rare /hpf; URINE BILIRUBIN Negative (NEGATIVE); URINE BLOOD 3+ (NEGATIVE); URINE CALCIUM OXALATE CRYSTAL Present /hpf; URINE COLOR Yellow; URINE GLUCOSE Negative (NEGATIVE); URINE KETONE Negative (NEGATIVE); URINE LEUKOCYTE ESTERASE 2+ (NEGATIVE); URINE NITRATE Negative (NEGATIVE); URINE PROTEIN(semi-quant) Negative (NEGATIVE); URINE RBC >50 /hpf; URINE UROBILINOGEN Negative (NEGATIVE)
[2019-11-17] MEDS ORDERED: MEDROL 4MG DOSPA4 MG PO (22:12)
[2019-11-17 22:44] VITALS: BP 149/89; PULSE 88
== END 2019-11-17 22:56 | disposition home or self-care (01) ==
LOC: COL.ER 21:41
PROVIDERS: Physician Assistant
DX: N20.0 Calculus of kidney (principal); L23.7 Allergic contact dermatitis due to plants, except food; Z90.49 Acquired absence of other specified parts of digestive tract; Z90.710 Acquired absence of both cervix and uterus; Z88.6 Allergy status to analgesic agent; Z88.2 Allergy status to sulfonamides; Z88.8 Allergy status to other drugs, medicaments and biological substances

== ENCOUNTER 2019-11-24 21:38 | Emergency (ER) | payer MEDICAID ==
[~2019-11-24] VITALS: Ht 170.2 cm; Wt 95.5 kg
[~2019-11-24 21:38] MED LIST changes: +MEDROL 4MG DOSPA4 MG PO
[2019-11-24 21:55] VITALS: TEMP 98.8
[2019-11-24 22:16] LABS: COLLECTION METHOD CLEAN CATCH
[2019-11-24 22:31] LABS: MUCOUS Present /lpf; PH 5 (5-8); URINE APPEARANCE Cloudy; URINE BACTERIA None Seen /hpf; URINE BILIRUBIN Negative (NEGATIVE); URINE BLOOD 3+ (NEGATIVE); URINE COLOR Yellow; URINE GLUCOSE Negative (NEGATIVE); URINE KETONE Negative (NEGATIVE); URINE LEUKOCYTE ESTERASE 3+ (NEGATIVE); URINE NITRATE Negative (NEGATIVE); URINE PROTEIN(semi-quant) 1+ (NEGATIVE); URINE RBC >50 /hpf; URINE UROBILINOGEN Negative (NEGATIVE)
[2019-11-24 23:34] LABS: BASO % 0.4 % (0.0-2.0); EOS # 0.1 (0.0-0.7); EOS % 1.2 % (0-4.0); GRAN # 5.1 (1.4-6.5); LYMPH # 4.5 (1.2-3.4); LYMPH % 43.2 % (20.0-51.0); MEAN CELL VOLUME 71 fl (80.0-100.0); MEAN CORPUSCULAR HGB CONC 29 g/dl (33.0-37.0); MEAN PLATELET VOLUME 9.4 fl (7.4-10.4); MONO # 0.6 (0.1-0.6); MONO % 5.7 % (1.7-9.3); PLATELET COUNT 371 K/mm3 (130-400); RED BLOOD COUNT 4.36 M/mm3 (4.10-5.30); REDCELL DISTRIBUTION WIDTH-CV 17.3 % (11.5-14.5)
[2019-11-24 23:43] LABS: HEMOGLOBIN 9.1 g/dl (12.5-16.0); MEAN CORPUSCULAR HEMOGLOBIN 21 pg (27.0-31.0)
[2019-11-24 23:47] LABS: ALANINE AMINOTRANSFERASE 18 U/L (4-34); ALBUMIN 4.3 gm/dL (3.5-5.0); ALKALINE PHOSPHATASE 97 U/L (50-136); ANION GAP 10 mmol/L (7-16); AST,SGOT 29 U/L (15-37); BILIRUBIN,TOTAL 0.6 mg/dL (0.0-1.0); BLOOD UREA NITROGEN 21 mg/dL (7-17); CALCIUM 9.2 mg/dL (8.4-10.2); CARBON DIOXIDE 25 mmol/L (22-30); CHLORIDE 102 mmol/L (98-107); GLUCOSE 135 mg/dL (74-106); POTASSIUM 3.6 mmol/L (3.4-5.0); SODIUM 136 mmol/L (137-145); TOTAL PROTEIN 7.6 gm/dL (6.4-8.2)
[2019-11-24 23:48] LABS: C-REACTIVE PROTEIN < 0.5 mg/dL (0.0-0.9)
[2019-11-25] MEDS ORDERED: DOXYCYCLINE 10100 MG PO (00:13)
[2019-11-25] MEDS ORDERED: ATARAX 25MG25 MG/TAB PO (00:13)
[2019-11-25] MEDS ORDERED: DIFLUCAN150 MG PO (00:38)
[2019-11-25 00:43] VITALS: BP 132/73; PULSE 85
== END 2019-11-25 00:43 | disposition home or self-care (01) ==
LOC: COL.ER 21:38
PROVIDERS: Emergency Medicine; Physician Assistant
DX: R31.9 Hematuria, unspecified (principal); R10.9 Unspecified abdominal pain; R21 Rash and other nonspecific skin eruption; Z98.84 Bariatric surgery status; Z88.2 Allergy status to sulfonamides
CPT/HCPCS: J1170; J1200; J2060; J2550

== ENCOUNTER 2019-12-18 17:48 | Emergency (ER) | payer MEDICAID ==
[2006-10-27 23:25] VITALS: BP 121/83
[~2019-12-18] VITALS: Ht 170.2 cm; Wt 94.1 kg
[~2019-12-18 17:48] MED LIST changes: +ATARAX 25MG25 MG/TAB PO
[2019-12-18 17:59] VITALS: BP 137/79; TEMP 99
[2019-12-18 18:20] LABS: COLLECTION METHOD CLEAN CATCH
[2019-12-18 18:39] LABS: MUCOUS Present /lpf; PH 5 (5-8); SQUAMOUS EPITHELIAL 0-2 /hpf; URINE APPEARANCE Clear; URINE BACTERIA Rare /hpf; URINE BILIRUBIN Negative (NEGATIVE); URINE BLOOD 3+ (NEGATIVE); URINE COLOR Amber; URINE GLUCOSE Negative (NEGATIVE); URINE KETONE Negative (NEGATIVE); URINE LEUKOCYTE ESTERASE Negative (NEGATIVE); URINE NITRATE Positive (NEGATIVE); URINE PROTEIN(semi-quant) Negative (NEGATIVE)
[2019-12-18] MEDS ORDERED: DIFLUCAN150 MG PO (19:36)
[2019-12-18 19:54] VITALS: PULSE 95
== END 2019-12-18 19:53 | disposition home or self-care (01) ==
LOC: COL.ER 17:48
PROVIDERS: Physician Assistant
DX: R10.9 Unspecified abdominal pain (principal); R31.9 Hematuria, unspecified; Z87.442 Personal history of urinary calculi; Z90.49 Acquired absence of other specified parts of digestive tract; Z98.84 Bariatric surgery status; Z90.89 Acquired absence of other organs
CPT/HCPCS: J1170; J2550

== ENCOUNTER 2019-12-22 00:15 | Emergency (ER) | payer MEDICAID ==
[2006-10-27 23:25] VITALS: BP 121/83
[~2019-12-22] VITALS: Ht 170.2 cm; Wt 94.1 kg
[2019-12-22 00:29] VITALS: TEMP 100.8
[2019-12-22 00:56] LABS: COLLECTION METHOD CLEAN CATCH
[2019-12-22 01:05] LABS: MUCOUS Present /lpf; PH 5 (5-8); SQUAMOUS EPITHELIAL 0-2 /hpf; URINE APPEARANCE Clear; URINE BACTERIA None Seen /hpf; URINE BILIRUBIN Negative (NEGATIVE); URINE BLOOD 3+ (NEGATIVE); URINE COLOR Amber; URINE GLUCOSE Negative (NEGATIVE); URINE KETONE Negative (NEGATIVE); URINE LEUKOCYTE ESTERASE Negative (NEGATIVE); URINE NITRATE Positive (NEGATIVE); URINE PROTEIN(semi-quant) Negative (NEGATIVE); URINE RBC >50 /hpf; URINE UROBILINOGEN >=4.0 mg/dL (NEGATIVE)
[2019-12-22 01:57] LABS: BASO % 0.5 % (0.0-2.0); EOS # 0.1 (0.0-0.7); EOS % 1.3 % (0-4.0); GRAN # 4.8 (1.4-6.5); GRAN % 61.2 % (42.2-75.2); LYMPH # 2.2 (1.2-3.4); LYMPH % 28.1 % (20.0-51.0); MEAN CELL VOLUME 70 fl (80.0-100.0); MEAN CORPUSCULAR HGB CONC 29 g/dl (33.0-37.0); MEAN PLATELET VOLUME 9.4 fl (7.4-10.4); MONO # 0.7 (0.1-0.6); MONO % 8.4 % (1.7-9.3); PLATELET COUNT 354 K/mm3 (130-400); RED BLOOD COUNT 4.23 M/mm3 (4.10-5.30); REDCELL DISTRIBUTION WIDTH-CV 16.8 % (11.5-14.5)
[2019-12-22 02:02] LABS: HEMATOCRIT 29.5 % (37.0-47.0); HEMOGLOBIN 8.6 g/dl (12.5-16.0); MEAN CORPUSCULAR HEMOGLOBIN 20 pg (27.0-31.0)
[2019-12-22 02:11] LABS: ALANINE AMINOTRANSFERASE 15 U/L (4-34); ALBUMIN 4.2 gm/dL (3.5-5.0); ALKALINE PHOSPHATASE 124 U/L (50-136); ANION GAP 9 mmol/L (7-16); AST,SGOT 32 U/L (15-37); BILIRUBIN,TOTAL 0.4 mg/dL (0.0-1.0); BLOOD UREA NITROGEN 17 mg/dL (7-17); CALCIUM 8.8 mg/dL (8.4-10.2); CARBON DIOXIDE 26 mmol/L (22-30); CHLORIDE 101 mmol/L (98-107); CREATININE, serum 0.82 (0.52-1.25); GLUCOSE 111 mg/dL (74-106); POTASSIUM 3.8 mmol/L (3.4-5.0); SODIUM 136 mmol/L (137-145); TOTAL PROTEIN 7.1 gm/dL (6.4-8.2)
[2019-12-22 02:12] LABS: C-REACTIVE PROTEIN < 0.5 mg/dL (0.0-0.9)
[2019-12-22 03:15] VITALS: BP 129/71; PULSE 93
== END 2019-12-22 03:12 | disposition home or self-care (01) ==
LOC: COL.ER 00:15
PROVIDERS: Emergency Medicine
DX: R10.9 Unspecified abdominal pain (principal); R25.2 Cramp and spasm; Z87.19 Personal history of other diseases of the digestive system; Z79.891 Long term (current) use of opiate analgesic; Z79.84 Long term (current) use of oral hypoglycemic drugs

== ENCOUNTER 2019-12-23 17:24 | Emergency (ER) | payer MEDICAID ==
[2006-10-27 23:25] VITALS: BP 121/83
[~2019-12-23] VITALS: Ht 170.2 cm; Wt 93.2 kg
[2019-12-23 18:18] LABS: COLLECTION METHOD CLEAN CATCH
[2019-12-23 18:28] LABS: HYALINE CAST >12 /lpf; MUCOUS Present /lpf; PH 5 (5-8); SQUAMOUS EPITHELIAL None Seen /hpf; URINE APPEARANCE Cloudy; URINE BACTERIA None Seen /hpf; URINE BILIRUBIN Negative (NEGATIVE); URINE BLOOD 3+ (NEGATIVE); URINE CALCIUM OXALATE CRYSTAL Present /hpf; URINE COLOR Amber; URINE GLUCOSE Negative (NEGATIVE); URINE KETONE Negative (NEGATIVE); URINE LEUKOCYTE ESTERASE Negative (NEGATIVE); URINE NITRATE Positive (NEGATIVE); URINE PROTEIN(semi-quant) 1+ (NEGATIVE); URINE RBC >50 /hpf; URINE UROBILINOGEN >=4.0 mg/dL (NEGATIVE)
[2019-12-23 19:04] LABS: BASO # 0.1 (0.0-0.2); BASO % 0.6 % (0.0-2.0); EOS # 0.1 (0.0-0.7); EOS % 1.6 % (0-4.0); GRAN # 4.2 (1.4-6.5); GRAN % 53.6 % (42.2-75.2); HEMATOCRIT 32.9 % (37.0-47.0); HEMOGLOBIN 9.6 g/dl (12.5-16.0); LYMPH # 2.8 (1.2-3.4); LYMPH % 36.7 % (20.0-51.0); MEAN CELL VOLUME 70 fl (80.0-100.0); MEAN CORPUSCULAR HEMOGLOBIN 20 pg (27.0-31.0); MEAN CORPUSCULAR HGB CONC 29 g/dl (33.0-37.0); MEAN PLATELET VOLUME 9.6 fl (7.4-10.4); MONO # 0.5 (0.1-0.6); PLATELET COUNT 366 K/mm3 (130-400); RED BLOOD COUNT 4.72 M/mm3 (4.10-5.30); REDCELL DISTRIBUTION WIDTH-CV 17.1 % (11.5-14.5)
[2019-12-23 19:18] LABS: ALANINE AMINOTRANSFERASE 17 U/L (4-34); ALBUMIN 4.4 gm/dL (3.5-5.0); ALKALINE PHOSPHATASE 136 U/L (50-136); ANION GAP 11 mmol/L (7-16); AST,SGOT 33 U/L (15-37); BILIRUBIN,TOTAL 0.4 mg/dL (0.0-1.0); BLOOD UREA NITROGEN 11 mg/dL (7-17); CARBON DIOXIDE 23 mmol/L (22-30); CHLORIDE 106 mmol/L (98-107); GLUCOSE 113 mg/dL (74-106); LIPASE 92 U/L (23-300); POTASSIUM 3.9 mmol/L (3.4-5.0); SODIUM 140 mmol/L (137-145); TOTAL PROTEIN 7.4 gm/dL (6.4-8.2)
[2019-12-23 19:19] LABS: C-REACTIVE PROTEIN < 0.5 mg/dL (0.0-0.9)
[2019-12-23 20:48] VITALS: BP 126/64; PULSE 80; TEMP 98.3
== END 2019-12-23 20:51 | disposition home or self-care (01) ==
LOC: COL.ER 17:24
PROVIDERS: Emergency Medicine
DX: N23 Unspecified renal colic (principal); Z98.84 Bariatric surgery status; Z90.49 Acquired absence of other specified parts of digestive tract; Z90.711 Acquired absence of uterus with remaining cervical stump; Z79.891 Long term (current) use of opiate analgesic
CPT/HCPCS: J1170; J2405; J7030

== ENCOUNTER 2019-12-27 06:49 | Observation (INO) | payer MEDICAID ==
[2006-10-27 23:25] VITALS: BP 121/83
[~2019-12-27] VITALS: Ht 170.2 cm; Wt 93.6 kg
[2019-12-27 07:53] LABS: BASO # 0.1 (0.0-0.2); BASO % 0.6 % (0.0-2.0); EOS # 0.1 (0.0-0.7); EOS % 0.9 % (0-4.0); GRAN # 5.1 (1.4-6.5); GRAN % 51.5 % (42.2-75.2); HEMOGLOBIN 10.4 g/dl (12.5-16.0); LYMPH % 40.8 % (20.0-51.0); MEAN CELL VOLUME 69 fl (80.0-100.0); MEAN CORPUSCULAR HEMOGLOBIN 20 pg (27.0-31.0); MEAN CORPUSCULAR HGB CONC 30 g/dl (33.0-37.0); MEAN PLATELET VOLUME 9.5 fl (7.4-10.4); MONO # 0.6 (0.1-0.6); MONO % 5.8 % (1.7-9.3); PLATELET COUNT 415 K/mm3 (130-400); RED BLOOD COUNT 5.11 M/mm3 (4.10-5.30)
[2019-12-27 07:56] LABS: HEMATOCRIT 35.3 % (37.0-47.0)
[2019-12-27 08:07] LABS: ALBUMIN 4.9 gm/dL (3.5-5.0); BILIRUBIN,TOTAL 0.5 mg/dL (0.0-1.0); C-REACTIVE PROTEIN 0.8 mg/dL (0.0-0.9); CALCIUM 9.2 mg/dL (8.4-10.2); CREATININE, serum 0.89 (0.52-1.25); TOTAL PROTEIN 8.4 gm/dL (6.4-8.2)
[2019-12-27 09:12] LABS: COLLECTION METHOD CLEAN CATCH
[2019-12-27 09:27] LABS: MUCOUS Present /lpf; PH 5 (5-8); URINE APPEARANCE Cloudy; URINE BACTERIA Rare /hpf; URINE BILIRUBIN Negative (NEGATIVE); URINE BLOOD 2+ (NEGATIVE); URINE COLOR Amber; URINE GLUCOSE Negative (NEGATIVE); URINE KETONE Negative (NEGATIVE); URINE LEUKOCYTE ESTERASE Negative (NEGATIVE); URINE NITRATE Positive (NEGATIVE); URINE PROTEIN(semi-quant) Negative (NEGATIVE)
[2019-12-27] MEDS ORDERED: ULTRAM 50MG TAB50 MG PO ×2 (14:11→14:14)
[2019-12-27] MEDS ORDERED: NORCO 325 MG-7.1 TAB PO (14:14)
[2019-12-27] MEDS ORDERED: D3-5050000 IU PO (14:16)
[2019-12-27] MEDS ORDERED: PHENERGAN50 M1 PO (14:17)
[2019-12-27] MEDS ORDERED: SEROQUEL 1100 MG/TAB PO (14:17)
[2019-12-27] MEDS ORDERED: KLONOPIN 1MG1 MG PO (14:17)
[2019-12-27] MEDS ORDERED: MIRAPEX0.25 MG PO (14:18)
[2019-12-27] MEDS ORDERED: NEURONTIN300 MG/CAP PO (14:18)
[2019-12-27] MEDS ORDERED: ATARAX 25MG25 MG/TAB PO (14:20)
[2019-12-27] MEDS ORDERED: LIDODERM 5% PATC1 EA TP (14:21)
--- NOTE | 2019-12-27 14:40 | NUR ---
Contacted Dr. Girard for diet order and pain meds. Orders entered.
[2019-12-27 17:38] VITALS: BP 126/60; PULSE 81; TEMP 98.7
[2019-12-27 19:06] VITALS: BP 156/77; PULSE 89; TEMP 98.5
--- NOTE | 2019-12-27 19:10 | NUR ---
Patient has done well this afternoon. Denies pain. Attempted IV start x 2. Patient denies further needs at this time. Will report off to material handler 2nd shift.
--- NOTE | 2019-12-27 22:47 | NUR ---
PT PASSED HER STONE, DR. STREETER NOTIFIED AND ORDERED PT TO BE DISCHARGE. PT AGREABLE.
--- NOTE | 2019-12-27 23:10 | NUR ---
PT DISCHARGED AND LEFT FACILITY ESCORTED BY CONTRACT ADMINISTRATION SPECIALIST. PT HAS ALL HER BELONGINGS WITH HER. DISCHARGE EDUCATION GIVEN AND PT VERBALIZED UNDERSTANDING. ROOM STRIPPED WELL.
== END 2019-12-27 23:15 | disposition home or self-care (01) ==
LOC: COL.ER 06:49 → SURG 12:01
PROVIDERS: Family Medicine; ADMIT Urology
DX: N13.2 Hydronephrosis with renal and ureteral calculous obstruction (principal); N39.0 Urinary tract infection, site not specified; Z98.84 Bariatric surgery status
CPT/HCPCS: G0378; J0696; J1170; J2405; J2550; J7030; J7120; Q9967

== ENCOUNTER 2020-03-24 18:49 | Emergency (ER) | payer SELFPAY ==
[2006-10-27 23:25] VITALS: BP 121/83
[~2020-03-24] VITALS: Ht 170.2 cm; Wt 86.4 kg
[~2020-03-24 18:49] MED LIST changes: +D3-5050000 IU PO; +KLONOPIN 1MG1 MG PO; +LIDODERM 5% PATC1 EA TP; +MIRAPEX0.25 MG PO; +PHENERGAN50 M1 PO; +SEROQUEL 1100 MG/TAB PO
[2020-03-24 18:51] VITALS: TEMP 100.2
[2020-03-24] MEDS ORDERED: NORCO 325 MG-101 TAB PO (22:48)
[2020-03-24 23:10] VITALS: BP 135/78; PULSE 98
== END 2020-03-24 23:10 | disposition home or self-care (01) ==
LOC: COL.ER 18:49
DX: S82.832A Other fracture of upper and lower end of left fibula, initial encounter for closed fracture (principal); S82.145A Nondisplaced bicondylar fracture of left tibia, initial encounter for closed fracture; S20.219A Contusion of unspecified front wall of thorax, initial encounter; G43.909 Migraine, unspecified, not intractable, without status migrainosus; M79.7 Fibromyalgia; G89.29 Other chronic pain; Z87.442 Personal history of urinary calculi; Z88.2 Allergy status to sulfonamides; Z88.6 Allergy status to analgesic agent; Z88.8 Allergy status to other drugs, medicaments and biological substances; V89.2XXA Person injured in unspecified motor-vehicle accident, traffic, initial encounter
CPT/HCPCS: J1170; J2550; J3360; L1846

== ENCOUNTER 2020-06-18 15:27 | Emergency (ER) | payer MEDICAID ==
[~2020-06-18] VITALS: Ht 170.2 cm; Wt 84.1 kg
[2020-06-18 15:45] VITALS: TEMP 99.1
[2020-06-18 16:28] LABS: COLLECTION METHOD CLEAN CATCH
[2020-06-18 16:36] LABS: MUCOUS Present /lpf; PH 5 (5-8); SQUAMOUS EPITHELIAL 0-2 /hpf; URINE APPEARANCE Clear; URINE BACTERIA Rare /hpf; URINE BILIRUBIN Negative (NEGATIVE); URINE BLOOD Negative (NEGATIVE); URINE COLOR Yellow; URINE GLUCOSE Negative (NEGATIVE); URINE KETONE Negative (NEGATIVE); URINE LEUKOCYTE ESTERASE Negative (NEGATIVE); URINE NITRATE Negative (NEGATIVE); URINE PROTEIN(semi-quant) Negative (NEGATIVE); URINE RBC 0-2 /hpf
[2020-06-18 17:05] VITALS: BP 136/78; PULSE 82
== END 2020-06-18 17:05 | disposition home or self-care (01) ==
LOC: COL.ER 15:27
PROVIDERS: Emergency Medicine
DX: M54.5 Low back pain (principal); M79.605 Pain in left leg; M25.512 Pain in left shoulder; Z98.84 Bariatric surgery status; Z88.6 Allergy status to analgesic agent; Z88.2 Allergy status to sulfonamides; Z88.8 Allergy status to other drugs, medicaments and biological substances

== ENCOUNTER 2021-01-03 07:23 | Emergency (ER) | payer MEDICAID ==
[~2021-01-03] VITALS: Ht 170.2 cm; Wt 75.0 kg
[2021-01-03 07:35] VITALS: BP 132/86; PULSE 82; TEMP 98.9
[2021-01-03 07:56] LABS: COLLECTION METHOD CLEAN CATCH
[2021-01-03 07:59] LABS: BASO % 0.7 % (0.0-2.0); EOS # 0.1 (0.0-0.7); EOS % 2.2 % (0-4.0); GRAN # 2.6 (1.4-6.5); GRAN % 43.8 % (42.2-75.2); LYMPH # 2.6 (1.2-3.4); LYMPH % 44.5 % (20.0-51.0); MEAN CELL VOLUME 66 fl (80.0-100.0); MEAN CORPUSCULAR HGB CONC 28 g/dl (33.0-37.0); MEAN PLATELET VOLUME 9.7 fl (7.4-10.4); MONO # 0.5 (0.1-0.6); MONO % 8.6 % (1.7-9.3); PLATELET COUNT 376 K/mm3 (130-400); RED BLOOD COUNT 4.78 M/mm3 (4.10-5.30); REDCELL DISTRIBUTION WIDTH-CV 18.6 % (11.5-14.5)
[2021-01-03 08:00] LABS: HEMATOCRIT 31.4 % (37.0-47.0); HEMOGLOBIN 8.9 g/dl (12.5-16.0); MEAN CORPUSCULAR HEMOGLOBIN 19 pg (27.0-31.0)
[2021-01-03 08:06] LABS: PH 6 (5-8); SQUAMOUS EPITHELIAL 0-2 /hpf; URINE APPEARANCE Hazy; URINE BACTERIA Rare /hpf; URINE BILIRUBIN Negative (NEGATIVE); URINE BLOOD 3+ (NEGATIVE); URINE COLOR Yellow; URINE GLUCOSE Negative (NEGATIVE); URINE KETONE Negative (NEGATIVE); URINE LEUKOCYTE ESTERASE 3+ (NEGATIVE); URINE NITRATE Negative (NEGATIVE); URINE PROTEIN(semi-quant) Negative (NEGATIVE); URINE RBC >50 /hpf; URINE UROBILINOGEN Negative (NEGATIVE)
[2021-01-03 08:29] LABS: TRICYCLIC ANTIDEPRESS URINE NEGATIVE
[2021-01-03 08:40] LABS: ALBUMIN 3.9 gm/dL (3.5-5.0); BILIRUBIN,TOTAL 0.4 mg/dL (0.2-1.2); CALCIUM 9.3 mg/dL (8.4-10.2); CREATININE, serum 0.81 mg/dL (0.57-1.11); POTASSIUM 3.7 mmol/L (3.5-4.5)
[2021-01-03] MEDS ORDERED: CIPRO 500MG TA500 MG PO (09:18)
== END 2021-01-03 09:22 | disposition home or self-care (01) ==
LOC: COL.ER 07:23
PROVIDERS: Personal Emergency Response Attendant
DX: R10.9 Unspecified abdominal pain (principal); R11.0 Nausea; Z98.84 Bariatric surgery status; Z90.49 Acquired absence of other specified parts of digestive tract
CPT/HCPCS: J2405; J7030

== ENCOUNTER 2021-03-27 10:00 | Outpatient (RCR) | payer MEDICAID ==
[2006-10-27 23:25] VITALS: BP 121/83
[2021-03-08 13:42] VITALS: BP 101/59; PULSE 85; TEMP 99
[2021-03-11 13:45] VITALS: BP 125/59; PULSE 85; TEMP 98
--- NOTE | 2021-03-14 06:34 | NUR ---
Pt did not show for yesterday's scheduled apt.
[2021-03-18 10:19] VITALS: BP 117/63; PULSE 80; TEMP 99.5
[2021-03-25 10:52] VITALS: BP 114/60; PULSE 83; TEMP 98.5
[~2021-03-27] VITALS: Ht 170.2 cm; Wt 75.2 kg
[2021-03-27 10:22] VITALS: BP 113/64; PULSE 70; TEMP 98.8
== END 2021-03-27 10:48 ==
LOC: EUO 10:00
DX: Z79.899 Other long term (current) drug therapy (principal)
CPT/HCPCS: J1756

== ENCOUNTER 2021-04-06 07:37 | Emergency (ER) | payer MEDICAID ==
[~2021-04-06] VITALS: Ht 170.2 cm; Wt 75.0 kg
[2021-04-06 07:45] VITALS: TEMP 97.7
[2021-04-06 08:55] VITALS: BP 130/61; PULSE 80
== END 2021-04-06 08:58 | disposition home or self-care (01) ==
LOC: COL.ER 07:37
DX: S62.102A Fracture of unspecified carpal bone, left wrist, initial encounter for closed fracture (principal); M79.7 Fibromyalgia; G43.909 Migraine, unspecified, not intractable, without status migrainosus; F31.9 Bipolar disorder, unspecified; Z88.6 Allergy status to analgesic agent; Z88.5 Allergy status to narcotic agent; Z79.899 Other long term (current) drug therapy; V19.9XXA Pedal cyclist (driver) (passenger) injured in unspecified traffic accident, initial encounter

== ENCOUNTER 2021-04-13 10:17 | Emergency (ER) | payer MEDICAID ==
[~2021-04-13] VITALS: Ht 170.2 cm; Wt 77.3 kg
[2021-04-13 10:18] VITALS: TEMP 99.2
[2021-04-13] MEDS ORDERED: LIDODERM 5% PATC1 EA TP (12:03)
[2021-04-13 12:06] VITALS: BP 110/72; PULSE 81
== END 2021-04-13 12:06 | disposition home or self-care (01) ==
LOC: COL.ER 10:17
DX: R51.9 Headache, unspecified (principal); R07.81 Pleurodynia; M79.7 Fibromyalgia; G43.909 Migraine, unspecified, not intractable, without status migrainosus; F31.9 Bipolar disorder, unspecified; Z88.6 Allergy status to analgesic agent; Z79.891 Long term (current) use of opiate analgesic; Z79.899 Other long term (current) drug therapy; V19.9XXA Pedal cyclist (driver) (passenger) injured in unspecified traffic accident, initial encounter

== ENCOUNTER 2021-09-30 03:32 | Emergency (ER) | payer MEDICAID ==
[~2021-09-30] VITALS: Ht 170.2 cm; Wt 81.8 kg
[2021-09-30 03:34] VITALS: BP 161/78; TEMP 99.2
[2021-09-30] MEDS ORDERED: ULTRAM 50MG TAB50 MG PO (03:52)
[2021-09-30 04:15] VITALS: PULSE 78
== END 2021-09-30 04:15 | disposition home or self-care (01) ==
LOC: COL.ER 03:32
DX: S63.501A Unspecified sprain of right wrist, initial encounter (principal); Z28.310 Unvaccinated for COVID-19; V18.0XXA Pedal cycle driver injured in noncollision transport accident in nontraffic accident, initial encounter; Y92.410 Unspecified street and highway as the place of occurrence of the external cause

== ENCOUNTER 2021-10-31 10:13 | Outpatient (RCR) | payer MEDICAID ==
[2006-10-27 23:25] VITALS: BP 121/83
[~2021-10-31] VITALS: Ht 170.2 cm; Wt 93.4 kg
[2021-10-31 10:40] VITALS: BP 113/69; PULSE 78; TEMP 98.5
== END 2021-10-31 14:57 ==
LOC: EUO 10:13
DX: D50.9 Iron deficiency anemia, unspecified (principal)
CPT/HCPCS: J1756

== ENCOUNTER 2021-11-15 13:00 | Outpatient (RCR) | payer MEDICAID ==
[2006-10-27 23:25] VITALS: BP 121/83
[2021-11-08 09:57] VITALS: BP 110/56; PULSE 87; TEMP 98.9
[~2021-11-15] VITALS: Ht 170.2 cm; Wt 93.8 kg
[2021-11-15 13:08] VITALS: BP 132/71; PULSE 101; TEMP 98.4
== END 2021-11-15 13:26 | disposition still patient (30) ==
LOC: EUO 13:00
DX: D50.9 Iron deficiency anemia, unspecified (principal)
CPT/HCPCS: J1756

== ENCOUNTER 2022-05-23 10:55 | Outpatient (RCR) | payer MEDICAID ==
[2006-10-27 23:25] VITALS: BP 121/83
[2022-05-08 09:29] VITALS: BP 127/74; PULSE 74; TEMP 98.5
[2022-05-15 11:20] VITALS: BP 127/76; PULSE 73; TEMP 98.1
[~2022-05-23] VITALS: Ht 170.2 cm; Wt 93.3 kg
[~2022-05-23 10:55] MED LIST changes: +BACTROBAN15 GM TOP
[2022-05-23 11:59] VITALS: BP 134/75; PULSE 78; TEMP 98.7
== END 2022-06-03 | disposition home or self-care (01) ==
LOC: EUO
DX: Z79.899 Other long term (current) drug therapy (principal)
CPT/HCPCS: J1756

== ENCOUNTER 2022-07-05 21:39 | Emergency (ER) | payer MEDICAID ==
[~2022-07-05] VITALS: Ht 170.2 cm; Wt 86.4 kg
[2022-07-05 21:47] VITALS: TEMP 97.2
[2022-07-05 21:54] LABS: COLLECTION METHOD CLEAN CATCH
[2022-07-05 22:00] LABS: MUCOUS Present (NOT PRESENT); URINE BACTERIA Rare /hpf (NONE SEEN)
[2022-07-05 22:01] LABS: PH 5.5 (5-8); URINE APPEARANCE Cloudy (CLEAR/HAZY); URINE BLOOD TRACE-INTACT (NEGATIVE); URINE COLOR Yellow (YELLOW); URINE GLUCOSE Negative (NEGATIVE); URINE KETONE TRACE (NEGATIVE); URINE NITRATE Positive (NEGATIVE); URINE PROTEIN(semi-quant) Negative (NEGATIVE); URINE UROBILINOGEN 0.2 (NEGATIVE)
[2022-07-05 22:50] VITALS: BP 134/81; PULSE 80
== END 2022-07-05 22:50 | disposition home or self-care (01) ==
LOC: COL.ER 21:39
PROVIDERS: Physician Assistant
DX: G89.29 Other chronic pain (principal); M54.50 Low back pain, unspecified; N39.0 Urinary tract infection, site not specified; Z87.442 Personal history of urinary calculi; Z88.8 Allergy status to other drugs, medicaments and biological substances
CPT/HCPCS: J1790

== ENCOUNTER 2023-11-07 23:02 | Emergency (ER) | payer MEDICAID ==
[~2023-11-07] VITALS: Ht 170.2 cm; Wt 79.5 kg
[~2023-11-07 23:02] MED LIST changes: +VALIUM 10MG10 MG/TAB PO
[2023-11-07 23:10] VITALS: TEMP 97.2
[2023-11-08] MEDS ORDERED: dexAMETHasone 10 MG/ML VIAL PO ONE (00:15)
[2023-11-08 00:34] VITALS: BP 157/83; PULSE 72
== END 2023-11-08 00:34 | disposition home or self-care (01) ==
LOC: COL.ER 23:02
DX: S92.511A Displaced fracture of proximal phalanx of right lesser toe(s), initial encounter for closed fracture (principal); W23.0XXA Caught, crushed, jammed, or pinched between moving objects, initial encounter
CPT/HCPCS: J1100

== ENCOUNTER → 2023-12-31 | Outpatient (CLI) | payer MEDICAID ==
[2006-10-27 23:25] VITALS: BP 121/83
[~2023-12-31] VITALS: Ht 170.2 cm; Wt 76.9 kg
[~2023-12-31] MED LIST changes: +FLONASEALLERGY NS; +LR 1,000 ML IV SCH; +Midazolam 2 MG/2 ML VIAL ONE; +ZANAFLEX CAPSULE4 MG PO
[2023-12-31 07:20] VITALS: BP 113/67; PULSE 82; TEMP 99.8
[2023-12-31 08:20] VITALS: BP 118/63; PULSE 80
[2023-12-31 08:25] VITALS: BP 120/75; PULSE 88
--- NOTE | 2023-12-31 09:02 | NUR ---
PATIENT HAS COMPLETED HER RECOVERY PERIOD. PATIENT IS AWAKE, ALERT, AND ORIENTED AND IS NOT DROWSY AT ALL AT THIS TIME. PATIENT HAS CONTACTED HER RIDE TO PICK HER UP AND HAS DRUNK A SODA. IV REMOVED WITHOUT ANY ISSUE AND PATIENT GOT DRESSED BY HERSELF. ESCORTED PATIENT OUT TO PATIENT ENTRANCE WITH ALL OF HER PERSONAL ITEMS. PATIENT WAS ABLE TO GET INTO THE FRONT PASSENGER SEAT WITHOUT ISSUE AND WITHOUT ASSISTANCE. ALL NEEDS MET.
== END ==
LOC: COL.RAD 06:49
DX: M75.121 Complete rotator cuff tear or rupture of right shoulder, not specified as traumatic (principal); S43.001A Unspecified subluxation of right shoulder joint, initial encounter; X58.XXXA Exposure to other specified factors, initial encounter
CPT/HCPCS: J2250; J2704; J7120

== ENCOUNTER 2024-01-19 11:56 | Emergency (ER) | payer MEDICAID ==
[~2024-01-19] VITALS: Ht 170.2 cm; Wt 73.6 kg
[~2024-01-19 11:56] MED LIST changes: -LR 1,000 ML IV SCH; -Midazolam 2 MG/2 ML VIAL ONE
[2024-01-19 12:02] VITALS: BP 156/80; TEMP 97.4
[2024-01-19 12:44] LABS: COLLECTION METHOD CLEAN CATCH
[2024-01-19 13:05] LABS: URINE APPEARANCE CLOUDY (CLEAR/HAZY); URINE BLOOD NEGATIVE (NEGATIVE); URINE COLOR Dark Yellow (YELLOW); URINE GLUCOSE NEGATIVE (NEGATIVE); URINE KETONE NEGATIVE (NEGATIVE); URINE NITRATE POSITIVE (NEGATIVE); URINE PROTEIN(semi-quant) NEGATIVE (NEGATIVE)
[2024-01-19 13:33] LABS: SQUAMOUS EPITHELIAL 0-2 /hpf (0-10); URINE BACTERIA MANY /hpf (NONE SEEN); URINE RBC 0-2 /hpf (0-2)
[2024-01-19] MEDS ORDERED: cefTRIAXone 1 G,Lidocaine PF 1% 2.1 ML IM ONE (14:00)
[2024-01-19] MEDS ORDERED: CEPHALEXIN500 M1 PO (14:04)
[2024-01-19] MEDS ORDERED: DIFLUCAN150 MG PO (14:12)
[2024-01-19 14:17] VITALS: PULSE 112
== END 2024-01-19 14:20 | disposition home or self-care (01) ==
LOC: COL.ER 11:56
PROVIDERS: Physician Assistant
DX: N39.0 Urinary tract infection, site not specified (principal); N75.0 Cyst of Bartholin's gland; K64.9 Unspecified hemorrhoids; B96.89 Other specified bacterial agents as the cause of diseases classified elsewhere
CPT/HCPCS: J0696